=== PATIENT | female | born 1935 | race Caucasian/White ===

== ENCOUNTER 2019-01-17 15:16 | Inpatient (IN) | payer MEDICARE, OTHER ==
[~2019-01-17] VITALS: Ht 157.5 cm; Wt 63.0 kg
[~2019-01-17 15:16] MED LIST: ALEN1TAB3 PO; AMLO-125 PO; ASPI-1441 PO; ASPI-719 PO; ASPI81TA86 PO; ATEN-1 PO; ATEN1TAB38 PO; CALC500T42 PO; CHOL200018 PO; FAM20 PO; FAMO-1 PO; FAMO10TA7 PO; GLUC-120 PO; GLUC-198 PO; HCTZ25 PO; LISI5TAB25 PO; MULT-820 PO; NEB5 PO; PANT40TA65 PO; PNEU0.5D3 IM; SODI15DR18 OP; VIT1CAPS9 PO; [UNRECOGNIZED DRUG - OTHER]; [UNRECOGNIZED DRUG - OTHER]
--- NOTE | 2019-01-17 15:34 | ER Report ---
History and Physical Time Seen By MD: 15:32 Hx. of Stated Complaint: pt reports sob for a few days, "cold last weeK" HPI/ROS CHIEF COMPLAINT: Shortness of breath HISTORY OF PRESENT ILLNESS: 83-year-old female with a history of hypertension, macular degeneration, COPD tending for emphysema without O2 dependency. Patient began with a cold last week. Today she presents with increasing shortness of breath over the last several days. She has a productive cough. She denies fevers. She denies chest pain. She denies leg swelling. She notes mild weakness. She's had no nausea, vomiting. She notes no dysuria. REVIEW OF SYSTEMS: Respiratory: As above Cardiovascular: No chest pain, no palpitations. Gastrointestinal: No vomiting, no abdominal pain. Musculoskeletal: No back pain. Allergies: Coded Allergies: Egg Derived (Verified Allergy, Intermediate, HIVES, 01/30/16) Tetanus Vaccines and Toxoid (Verified Allergy, Intermediate, ANAPHYLAXIS, 01/30/16) Influenza Virus Vaccines (Verified Allergy, Unknown, 01/17/19) Home Meds Active Scripts Amlodipine Besylate (AMLODIPINE BESYLATE) 5 Mg Tablet, 1 TAB PO QDAY, #90 TAB 2 Refills Prov:SAVANNAH GOOD MD 10/10/17 Lisinopril (LISINOPRIL) 5 Mg Tablet, 1 TAB PO QDAY, #90 TAB 3 Refills Prov:SAVANNAH GOOD MD 06/04/17 Pantoprazole Sodium (PANTOPRAZOLE SODIUM) 40 Mg Tablet.dr, 1 TAB PO PRN PRN for heartburn, #90 TAB.SR 4 Refills Prov:SAVANNAH GOOD MD 01/17/17 Atenolol/Chlorthalidone (ATENOLOL-CHLORTHAL 50-25 TB) 1 Each Tablet, 0.5 TAB PO QDAY, #45 TAB 0 Refills Prov:SAVANNAH GOOD MD 11/30/16 Reported Medications Sodium Chloride (CAROLINE-128) 15 Ml Drops, 1 GTT OP BID 01/30/16 Vit C/E/Zn/Coppr/Lutein/Zeaxan (Preservision Areds 2 Softgel) 1 Each Capsule, 2 CAP PO QDAY 01/30/16 Glucosa Stiles 2KCL/Chondroitin Stiles (GLUCOSAMINE & CHONDROITIN CAP) 1 Each Capsule, 1 CAP PO BID 3/28/16 Cholecalciferol (Vitamin D3) (VITAMIN D) 2,000 Unit Tablet, 1 CAP PO QDAY 11/11/14 Discontinued Reported Medications Aspirin (ASPIRIN EC) 81 Mg Tablet.dr, 1 TAB PO QODAY, TAB 11/11/14 Past Medical/Surgical History Past Medical History HEENT: Reports hx of: macular degeneration (bilateral. Has eye exams in [place]. ) Cardiovascular: Reports hx of: hypertension (tx since 2000. ) Respiratory: Reports hx of: COPD (peak flow 220 in 12/19. 300 in 2007. Tends more to emphysema.) Gastrointestinal: Reports hx of: GERD (mild and longstanding. Never needed EGD. ) Musculoskeletal: Reports hx of: osteoporosis (Dx 2007 and tx with fosamax x 3 years. no hx fx. ) Past Surgical History HEENT: Reports hx of: cataract extraction (1999 bil) Gynecologic: Reports hx of: other [employer] surgery (uterine suspension after child ) Integumentary: Reports hx of: skin cancer removal (BCC Dr. Skinner) Reviewed Nurses Notes: Yes Old Medical Records Reviewed: Yes Smoking Status: Former Smoker Exposure to Second Hand Smoke?: Yes Hx Alcohol Use: No Constitutional Vital Sign - Last 24 Hours 01/17/19 01/17/19 01/17/19 01/17/19 15:20 15:21 15:22 15:22 Temp 97.8 Pulse 95 89 Resp 18 B/P (MAP) 174/84 (114) 174/84 Pulse Ox 83 83 O2 Delivery Room Air Room Air O2 Flow Rate 0 2.0 01/17/19 01/17/19 01/17/19 01/17/19 15:26 15:31 15:36 15:41 Pulse 86 83 85 Resp 20 17 19 14 Pulse Ox 95 95 95 85 O2 Delivery Nasal Cannula O2 Flow Rate 2 01/17/19 01/17/19 01/17/19 01/17/19 15:46 15:51 15:56 15:57 Pulse 88 84 78 Resp 20 17 17 Pulse Ox 95 94 99 95 O2 Delivery Nasal Cannula O2 Flow Rate 2.0 01/17/19 01/17/19 01/17/19 01/17/19 15:57 16:01 16:16 16:31 Pulse 77 83 88 Resp 18 13 27 17 Pulse Ox 97 95 95 01/17/19 01/17/19 01/17/19 01/17/19 16:46 17:01 17:16 17:21 Pulse 91 104 89 89 Resp 16 14 19 Pulse Ox 94 93 93 93 01/17/19 01/17/19 01/17/19 01/17/19 17:41 17:45 17:51 18:00 Pulse 90 Resp 20 B/P (MAP) 151/85 (107) 153/79 (103) 149/65 (93) Pulse Ox 90 01/17/19 01/17/19 01/17/19 01/17/19 18:05 18:15 18:20 18:30 Pulse 89 90 Resp 15 22 B/P (MAP) 147/72 (97) 144/87 (106) Pulse Ox 91 90 01/17/19 01/17/19 18:35 18:45 Pulse 125 Resp 23 B/P (MAP) 150/80 (103) Pulse Ox 91 Physical Exam General Appearance: The patient is alert, has no immediate need for airway protection and no current signs of toxicity. Vital signs stable, pulse ox 83% on room air, requiring 2 L to get to normal saturations. She is afebrile HEENT: Pupils equal and round no injection. TMs normal, oropharynx with mild erythema, no exudate Respiratory: Chest is non tender, lungs are clear to auscultation. No wheezing or rails appreciated Cardiac: regular rate and rhythm Gastrointestinal: Abdomen is soft and non tender, no masses, bowel sounds normal. Musculoskeletal: Neck: Neck is supple and non tender. Extremities have full range of motion and are non tender. No edema, no calf tenderness Skin: No rashes or lesions. DIFFERENTIAL DIAGNOSIS: After history and physical exam differential diagnosis was considered for shortness of breath including but not limited to pulmonary infectious process, COPD, asthma, pulmonary embolus and congestive heart failure. Medical Decision Making Data Points Result Diagram: 01/18/19 1209 01/18/19 1209 Laboratory Hematology Test 01/17/19 15:26 01/17/19 15:50 01/17/19 15:53 D-Dimer Quantitative (PE/DVT) 0.64 ug/ml (0-0.50) Total Bilirubin 0.4 mg/dl (0.2-1.3) Aspartate Amino Transf (AST/SGOT) 36 U/L (0-35) Alanine Aminotransferase (ALT/SGPT) 18 U/L (0-56) Alkaline Phosphatase 103 U/L (0-126) Troponin I < 0.012 ng/ml B-Type Natriuretic Peptide 161 pg/ml (0-100) Total Protein 7.4 g/dl (6.3-8.2) Albumin 4.5 g/dl (3.5-5.0) Influenza Virus Type A (PCR) Negative (NEGATIVE) Influenza Virus Type B (PCR) Negative (NEGATIVE) Lactate 1.2 mmol/L (0.7-2.1) Chemistry Test 01/17/19 15:26 01/17/19 15:50 01/17/19 15:53 D-Dimer Quantitative (PE/DVT) 0.64 ug/ml (0-0.50) Total Bilirubin 0.4 mg/dl (0.2-1.3) Aspartate Amino Transf (AST/SGOT) 36 U/L (0-35) Alanine Aminotransferase (ALT/SGPT) 18 U/L (0-56) Alkaline Phosphatase 103 U/L (0-126) Troponin I < 0.012 ng/ml B-Type Natriuretic Peptide 161 pg/ml (0-100) Total Protein 7.4 g/dl (6.3-8.2) Albumin 4.5 g/dl (3.5-5.0) Influenza Virus Type A (PCR) Negative (NEGATIVE) Influenza Virus Type B (PCR) Negative (NEGATIVE) Lactate 1.2 mmol/L (0.7-2.1) Coagulation Test 01/17/19 15:26 D-Dimer Quantitative (PE/DVT) 0.64 ug/ml Microbiology Microbiology Date/Time Source Procedure Growth Status 01/17/19 15:59 Blood Peripheral Draw Blood Culture - Preliminary NO GROWTH AFTER 1 DAY, REINCUBATED Resulted 01/17/19 15:33 Blood Peripheral Draw Blood Culture - Preliminary NO GROWTH AFTER 1 DAY, REINCUBATED Resulted EKG/Imaging EKG Interpretation 12 lead EK Rhythm: normal sinus rhythm with occasional premature supraventricular complex [place]: normal QRS: normal ST segments: normal, no evidence of ischemia or dysrhythmia, comparison to previous EKG dated 01/30/16. There does not seem to be significant change in the overall morphology. There is a lot of baseline artifact in the new EKG Imaging Results: CT scan of the CTA pulmonary angiogram was obtained. The results of the study are CT ANGIOGRAM OF THE CHEST WITH INTRAVENOUS CONTRAST, PE PROTOCOL DATE OF EXAM: 01/17/2019 16:40 COMPARISON: Chest radiographs of the same day. INDICATION: Hypoxia. TECHNIQUE: Contrast enhanced chest CT performed during the injection of 80 ml of Isovue-370. Three-dimensional (MIP) reconstructions were performed. FINDINGS: Negative for pulmonary arterial embolus. Thyroid: Incompletely imaged thyroid. Thoracic inlet: No thoracic inlet adenopathy. Heart and great vessels: Heart size is normal. Coronary atherosclerosis is prominent. The left and right main pulmonary arteries are mildly enlarged. Mediastinum and pinky: No long adenopathy. Lungs and pleura: Centrilobular emphysema is moderate at the lung apices. There is also apical scarring. 6 mm nodule posteriorly in the right lower lobe on series 5 image 149. 9 mm nodule posteriorly in the right lower lobe on series 5 image 165. Scattered atelectasis at the lung bases. Mild diffuse bronchial wall thickening most prominent at the lung bases. There is some nodular thickening along the fissure on the left. Breast and axilla: Breast tissue is unremarkable by CT. Bones and soft tissues: No acute osseous abnormality. Upper abdomen: Partially calcified stones layer dependently within the gallbladder. There is an indeterminate nodule at the left adrenal gland either measuring 0.7 or 1.6 cm; 0.7 cm corresponds to a solid nodular component that may or may not be part of a larger fat-containing nodule. There is a large hiatal hernia. IMPRESSION: 1. Negative for pulmonary arterial embolus. 2. 9 mm and 6 mm pulmonary nodules posteriorly in the right lower lobe. There is also nodularity along the left major fissure. Recommend follow-up CT in 3 months. 3. Indeterminate nodule at the left adrenal gland. Consider adrenal mass protocol CT to determine washout characteristics. 4. Moderate apical predominant centrilobular emphysema. 5. Large hiatal hernia. 6. Cholelithiasis. The study was read by the radiologist. I viewed the images myself on the PACS system. ED Course/Re-evaluation Clinical Indication for ER IV: Hydration, IV Access ED Course 01/17/2019 6:19:17 pm is discussed with Dr. Boyd hospitalist on-call, who accepts the patient for admission for treatment of COPD exacerbation. Decision to Disposition Date: Jan 17, 2019 Decision to Disposition Time: 18:02 Depart Departure Latest Vital Signs Vital Signs Date Time Temp Pulse Resp B/P (MAP) Pulse Ox O2 Delivery O2 Flow Rate FiO2 01/17/19 18:45 150/80 (103) 01/17/19 18:35 125 23 91 01/17/19 15:57 Nasal Cannula 2.0 01/17/19 15:22 97.8 Impression: Primary Impression: Hypoxia Additional Impressions: Upper respiratory infection COPD exacerbation Hypertension GERD (gastroesophageal reflux disease) Condition: Improved Disposition: HOME OR SELF-CARE Referrals: SAVANNAH GOOD MD (PCP) Problem Qualifiers Additional Impressions: Upper respiratory infection URI type: unspecified URI Qualified Codes: J06.9 - Acute upper respiratory infection, unspecified Hypertension Hypertension type: essential hypertension Qualified Codes: I10 - Essential (primary) hypertension GERD (gastroesophageal reflux disease) Esophagitis presence: esophagitis presence not specified Qualified Codes: K21.9 - Gastro-esophageal reflux disease without esophagitis GONZALES ZAVALA DO Jan 17, 2019 15:34
[2019-01-17] MEDS ORDERED: ALBUTEROL/IPRATROPIUM 3 ML NEB NEB ONE (15:40)
[2019-01-17] MEDS ORDERED: methylPREDNIS SUCC 125 MG/2ML IVP ONE (15:40)
[2019-01-17] MEDS ORDERED: NS(*) 0.9% 1000 ML BAG 1,000 ML IV ONE (15:40)
[2019-01-17 15:58] LABS: PLATELET COUNT, AUTOMATED 552 K/uL (150-450)
[2019-01-17] MEDS ORDERED: NS(*) 0.9% 50 ML BAG 50 ML ONE (16:54)
[2019-01-17] MEDS ORDERED: IOPAMIDOL 76% 100 ML INFUS BTL 100 ML ONE (16:54)
--- NOTE | 2019-01-17 17:22 | EKG ---
FAC[place] [facility] [place]IENT NAME: AURORA MORGAN : [id number] MR: [id number] V: [id number] EXAM DATE: ORDERING PHYSICIAN: GONZALES ZAVALA TECHNOLOGIST: DANIELA Test Reason : SOB Blood Pressure : / mmHG Vent. Rate : 085 BPM Atrial Rate : 085 BPM P-R Int : 158 ms QRS Dur : 080 ms QT Int : 378 ms P-R-T Axes : 072 084 091 degrees QTc Int : 449 ms Sinus rhythm with premature supraventricular complexes Nonspecific ST and T wave abnormality Abnormal ECG When compared with ECG of 30-JAN-2016 12:40, premature supraventricular complexes are now present ST now depressed in Anterior leads Confirmed by CORINA MACIAS ([id number]) on 01/17/2019 6:15:28 PM Referred By: KIERRA Confirmed By:CORINA MACIAS
--- NOTE | 2019-01-17 17:46 | RADIOLOGY IMAGING REPORT ---
FACILITY: [facility] PATIENT NAME: Arline Ramirez : 1935 MR: [id number] V: [id number] EXAM DATE: ORDERING PHYSICIAN: GONZALES ZAVALA TECHNOLOGIST: Location: [facility] - [place] Patient: Arline Ramirez : 1935 Visit/Account:[id number] Date of Sevice: 01/17/2019 CT ANGIOGRAM OF THE CHEST WITH INTRAVENOUS CONTRAST, PE PROTOCOL DATE OF EXAM: 01/17/2019 16:40 COMPARISON: Chest radiographs of the same day. INDICATION: Hypoxia. TECHNIQUE: Contrast enhanced chest CT performed during the injection of 80 ml of Isovue-370. Three-d imensional (MIP) reconstructions were performed. FINDINGS: Negative for pulmonary arterial embolus. Thyroid: Incompletely imaged thyroid. Thoracic inlet: No thoracic inlet adenopathy. Heart and great vessels: Heart size is normal. Coronary atherosclerosis is prominent. The left and r ight main pulmonary arteries are mildly enlarged. Mediastinum and pinky: No long adenopathy. Lungs and pleura: Centrilobular emphysema is moderate at the lung apices. There is also apical scarr ing. 6 mm nodule posteriorly in the right lower lobe on series 5 image 149. 9 mm nodule posteriorly i n the right lower lobe on series 5 image 165. Scattered atelectasis at the lung bases. Mild diffuse b ronchial wall thickening most prominent at the lung bases. There is some nodular thickening along the fissure on the left. Breast and axilla: Breast tissue is unremarkable by CT. Bones and soft tissues: No acute osseous abnormality. Upper abdomen: Partially calcified stones layer dependently within the gallbladder. There is an indet erminate nodule at the left adrenal gland either measuring 0.7 or 1.6 cm; 0.7 cm corresponds to a devin id nodular component that may or may not be part of a larger fat-containing nodule. There is a large hiatal hernia. IMPRESSION: 1. Negative for pulmonary arterial embolus. 2. 9 mm and 6 mm pulmonary nodules posteriorly in the right lower lobe. There is also nodularity ewa g the left major fissure. Recommend follow-up CT in 3 months. 3. Indeterminate nodule at the left adrenal gland. Consider adrenal mass protocol CT to determine was hout characteristics. 4. Moderate apical predominant centrilobular emphysema. 5. Large hiatal hernia. 6. Cholelithiasis. One of the following dose optimization techniques was utilized in the performance of this exam: Autom ated exposure control; adjustment of the mA and/or kV according to the patient's size; or use of an i terative reconstruction technique. Specific details can be referenced in the facility's radiology C T exam operational policy. Report Dictated By: Efrain Staples MD at 01/17/2019 5:19 PM Report E-Signed By: Efrain Staples MD at 01/17/2019 5:43 PM WSN:[id number]
[2019-01-17] MEDS ORDERED: ALBUTEROL 2.5 MG/3 ML NEB NEB PRN (19:55)
[2019-01-17 19:56] VITALS: BP 147/72
--- NOTE | 2019-01-17 20:01 | History & Physical ---
History of Present Illness Chief Complaint Shortness of breath History of Present Illness This patient presented to the emergency room with a complaint of shortness of breath. Her symptoms started approximately one week ago when she developed an upper respiratory infection. She has no history of lung problems in the past, but did smoke for a number of years before quitting. History Problems: (1) Essential hypertension Status: Acute Home Meds Active Scripts Amlodipine Besylate (AMLODIPINE BESYLATE) 5 Mg Tablet, 1 TAB PO QDAY, #90 TAB 2 Refills Prov:SAVANNAH GOOD MD 10/10/17 Lisinopril (LISINOPRIL) 5 Mg Tablet, 1 TAB PO QDAY, #90 TAB 3 Refills Prov:SAVANNAH GOOD MD 06/04/17 Pantoprazole Sodium (PANTOPRAZOLE SODIUM) 40 Mg Tablet., 1 TAB PO PRN PRN for heartburn, #90 TAB.SR 4 Refills Prov:SAVANNAH GOOD MD 01/17/17 Atenolol/Chlorthalidone (ATENOLOL-CHLORTHAL 50-25 TB) 1 Each Tablet, 0.5 TAB PO QDAY, #45 TAB 0 Refills Prov:SAVANNAH GOOD MD 11/30/16 Reported Medications Sodium Chloride (CAROLINE-128) 15 Ml Drops, 1 GTT OP BID 01/30/16 Vit C/E/Zn/Coppr/Lutein/Zeaxan (Preservision Areds 2 Softgel) 1 Each Capsule, 2 CAP PO QDAY 01/30/16 Glucosa Stiles 2KCL/Chondroitin Stiles (GLUCOSAMINE & CHONDROITIN CAP) 1 Each Capsule, 1 CAP PO BID 01/30/16 Aspirin (ASPIRIN EC) 81 Mg Tablet., 1 TAB PO QODAY, TAB 11/11/14 Cholecalciferol (Vitamin D3) (VITAMIN D) 2,000 Unit Tablet, 1 CAP PO QDAY 11/11/14 Allergies: Coded Allergies: Egg Derived (Verified Allergy, Intermediate, HIVES, 01/30/16) Tetanus Vaccines and Toxoid (Verified Allergy, Intermediate, ANAPHYLAXIS, 01/30/16) Influenza Virus Vaccines (Verified Allergy, Unknown, 01/17/19) Patient History: FH: CHF (congestive heart failure) MOTHER, , Age:84 FH: breast cancer Paternal aunt, , Age:88, Onset:48 FH: dementia FATHER, , Age:88 FH: hypertension MOTHER, , Age:84 FH: rheumatic fever MOTHER, , Age:84 Smoking Status: Former Smoker Exposure to Second Hand Smoke?: Yes Hx Alcohol Use: No Review of Systems All Systems Reviewed/Normal: Yes, Except as Noted Respiratory: Shortness of Breath Exam Vital Signs Vital Signs Date Time Temp Pulse Resp B/P (MAP) Pulse Ox O2 Delivery O2 Flow Rate FiO2 01/17/19 19:25 132 15 90 01/17/19 19:15 116/89 (98) 01/17/19 15:57 Nasal Cannula 2.0 01/17/19 15:22 97.8 Neuro: No Gross deficits Eyes: PERRLA Cardiovascular: Regular Rate and Rhythm Respiratory: Clear to Auscultation GI: Abd Soft and Non-Tender Extremities: No Edema Integumentary: No Cyanosis Medical Decision Making Data Points Result Diagram: 01/17/19 1526 01/17/19 1526 Assessment and Plan Problems: (1) COPD exacerbation Status: Acute Assessment & Plan: She did present with shortness of breath and hypoxia. Her CT scan did show findings consistent with emphysema. She has been started on nebulizers, doxycycline, and steroids. (2) Pulmonary nodules Assessment & Plan: These were noted on the CT scan. A follow up CT is recommended in 3 months. (3) Adrenal nodule Assessment & Plan: This was also noted on the CT scan and a dedicated adrenal CT was recommended. (4) Essential hypertension Status: Acute Assessment & Plan: She is on chronic treatment with amlodipine, atenolol, chlorthalidone, and lisinopril. Copies to: CATARINO ROSADO DO ; Venous Thromboembolism Antithrombotics Is Pt On Any Antithrombotics?: No Exam Sepsis Risk: No Definite Risk CORINA MACIAS DO Jan 17, 2019 20:01
[2019-01-17] MEDS ORDERED: LEVALBUTEROL 1.25 MG/3 ML NEB NEB PRN (20:25)
[2019-01-17] MEDS: LEVALBUTEROL 1.25 MG/3 ML NEB NEB SCH (23:49)
[2019-01-18] MEDS ORDERED: ALBUTEROL 2.5 MG/3 ML NEB NEB SCH
[2019-01-18] MEDS: methylPREDNIS SUCC 125 MG/2ML IVP SCH ×2 (00:18→09:00)
[2019-01-18 01:26] VITALS: BP 126/61
[2019-01-18] MEDS: LEVALBUTEROL 1.25 MG/3 ML NEB NEB SCH ×3 (05:59→17:18)
[2019-01-18 06:41] VITALS: BP 124/58
[2019-01-18] MEDS: CHLORTHALIDONE 25 MG TAB PO SCH (08:44)
[2019-01-18] MEDS: LISINOPRIL 5 MG TAB PO SCH (08:44)
[2019-01-18] MEDS: amLODIPine BESYL(*) 5 MG TAB PO SCH (08:44)
[2019-01-18] MEDS: ATENOLOL 25 MG TAB PO SCH (08:44)
[2019-01-18] MEDS: PANTOPRAZOLE SOD 40 MG TABEC PO PRN (08:48)
[2019-01-18] MEDS: CALCIUM CARBONATE 500 MG CHEW PO PRN ×3 (11:22→20:53)
[2019-01-18] MEDS: predniSONE 20 MG TAB PO SCH (11:23)
[2019-01-18 12:22] LABS: PLATELET COUNT, AUTOMATED 584 K/uL (150-450)
[2019-01-18] MEDS: EUCALYPTUS/MENTHOL LOZ MM PRN ×2 (14:14→17:56)
[2019-01-18 14:15] VITALS: BP 123/56
[2019-01-18 15:29] VITALS: BP 119/68
--- NOTE | 2019-01-18 15:59 | Hospitalist Progress Note ---
Subjective Progress Notes Subjective 83F admitted for COPD exacerbation. WBC elevated > 20kthis am unclear if only due to steroid. Tachycardic for periods without symptoms to 130's. Plan to monitor overnight and attempt to wean O2. Patient Complains of: Respiratory: Cough; No: Shortness of Breath Physical Exam Vital Signs Date Time Temp Pulse Resp B/P (MAP) Pulse Ox O2 Delivery O2 Flow Rate FiO2 01/18/19 15:29 99.1 80 16 119/68 (85) 89 Nasal Cannula 0.5 Intake and Output 01/18/19 06:59 Intake Total 1240 ml Balance 1240 ml Intake Oral 240 ml IV Total 1000 ml # Voids 4 General Appearance: Alert, Awake, No Acute Distress Neuro: No Gross deficits Eyes: PERRLA Cardiovascular: Normal Rhythm & Peripheral Pulses Respiratory: No Respiratory Distress (end expiratroy wheeze) GI: Soft and Non-Tender Musculoskeletal: No Weakness/Pain Extremities: Soft and Non Tender, Warm, Pulses, Perfused; No Edema Result Diagram: 01/18/19 1209 01/18/19 1209 Assessment and Plan Problems: (1) COPD exacerbation Status: Acute Assessment & Plan: She did present with shortness of breath and hypoxia. Her CT scan did show findings consistent with emphysema. She has been started on nebulizers, doxycycline, and steroids. O2 needs improving. (2) Pulmonary nodules Assessment & Plan: These were noted on the CT scan. A follow up CT is r ecommended in 3 months. (3) Adrenal nodule Assessment & Plan: This was also noted on the CT scan and a dedicated adrenal CT was recommended. (4) Essential hypertension Status: Acute Assessment & Plan: She is on chronic treatment with amlodipine, atenolol, chlorthalidone, and lisinopril. (5) Tachycardia Assessment & Plan: Believe related to albuterol, placed on telemetry for further evaluation as episodes were over before EKG obtained. (6) Leukocytosis Assessment & Plan: Likely due to steroid though level of elevation is slightly atypical. Had slight elevation in WBC before any steroid therapy. Exam Sepsis Risk: Sepsis Risk LEE ANN BESTSHANE Jan 18, 2019 15:59
[2019-01-18 19:28] VITALS: BP 120/55
[2019-01-18 23:56] VITALS: BP 109/53
[2019-01-19 03:09] VITALS: BP 117/62
[2019-01-19] MEDS: LEVALBUTEROL 1.25 MG/3 ML NEB NEB SCH ×2 (06:00)
[2019-01-19 06:14] LABS: PLATELET COUNT, AUTOMATED 529 K/uL (150-450)
[2019-01-19 07:38] VITALS: BP 130/74
[2019-01-19] MEDS: LISINOPRIL 5 MG TAB PO SCH (09:00)
[2019-01-19] MEDS: predniSONE 20 MG TAB PO SCH (09:00)
[2019-01-19] MEDS ORDERED: ASPIRIN 81 MG ENTERIC COATED PO SCH (09:00)
[2019-01-19] MEDS: ATENOLOL 25 MG TAB PO SCH (09:00)
[2019-01-19] MEDS: amLODIPine BESYL(*) 5 MG TAB PO SCH (09:00)
[2019-01-19] MEDS: CHLORTHALIDONE 25 MG TAB PO SCH (09:01)
[2019-01-19] MEDS: PANTOPRAZOLE SOD 40 MG TABEC PO PRN (09:01)
[2019-01-19] MEDS ORDERED: PRED20TA6 PO (09:12)
--- NOTE | 2019-01-19 09:18 | Hospitalist Depart ---
Discharge Summary Reason for Hosp/Final Diag: (1) COPD exacerbation Status: Acute Hospital Course & Plan: She did present with shortness of breath and hypoxia. Her CT scan did show findings consistent with emphysema. Shewas started on nebulizers, and steroid. Discharged on 1L O2 and with prednisone for 7 days. (2) Pulmonary nodules Hospital Course & Plan: These were noted on the CT scan. A follow up CT is recommended in 3 months. (3) Adrenal nodule Hospital Course & Plan: This was also noted on the CT scan and a dedicated adrenal CT was recommended. (4) Essential hypertension Status: Acute Hospital Course & Plan: She is on chronic treatment with amlodipine, atenolol, chlorthalidone, and lisinopril. (5) Tachycardia Hospital Course & Plan: Believe related to albuterol. (6) Leukocytosis Hospital Course & Plan: Likely due to steroid though level of elevation is slig htly atypical. Had slight elevation in WBC before any steroid therapy. Recommend follow up after resolution of acute phase of illness and after completing steroid. Departure Weight (Pounds): 139 Weight (Ounces): 1.0 Result Diagram: 01/19/19 0551 01/19/19550 Condition: Improved Discharge: Home Discharge Instructions Home Meds Active Scripts Prednisone (PREDNISONE) 20 Mg Tablet, 40 MG PO QDAY for 7 Days, #14 TAB Prov:LEE ANN BESTSHANE 01/19/19 Amlodipine Besylate (AMLODIPINE BESYLATE) 5 Mg Tablet, 1 TAB PO QDAY, #90 TAB 2 Refills Prov:SAVANNAH GOOD MD 10/10/17 Lisinopril (LISINOPRIL) 5 Mg Tablet, 1 TAB PO QDAY, #90 TAB 3 Refills Prov:SAVANNAH GOOD MD 06/04/17 Pantoprazole Sodium (PANTOPRAZOLE SODIUM) 40 Mg Tablet.dr, 1 TAB PO PRN PRN for heartburn, #90 TAB.SR 4 Refills Prov:SAVANNAH GOOD MD 01/17/17 Atenolol/Chlorthalidone (ATENOLOL-CHLORTHAL 50-25 TB) 1 Each Tablet, 0.5 TAB PO QDAY, #45 TAB 0 Refills Prov:SAVANNAH GOOD MD 11/30/16 Reported Medications Sodium Chloride (CAROLINE-128) 15 Ml Drops, 1 GTT OP BID 01/30/16 Vit C/E/Zn/Coppr/Lutein/Zeaxan (Preservision Areds 2 Softgel) 1 Each Capsule, 2 CAP PO QDAY 01/30/16 Glucosa Stiles 2KCL/Chondroitin Stiles (GLUCOSAMINE & CHONDROITIN CAP) 1 Each Capsule, 1 CAP PO BID 01/30/16 Cholecalciferol (Vitamin D3) (VITAMIN D) 2,000 Unit Tablet, 1 CAP PO QDAY 11/11/14 Discontinued Reported Medications Aspirin (ASPIRIN EC) 81 Mg Tablet.dr, 1 TAB PO QODAY, TAB 11/11/14 Diet: Regular Activity: As Tolerated Special Instructions: You were given a 7 day course of prednisone for COPD exacerbation. You were started on oxygen, follow up with PCP to evaluate continued need. Imaging findings showed pulmonary nodule which will need follow up and adrenal lesion shich will also need dedicated imaging. Copies to: SAVANNAH GOOD MD ; Venous Thromboembolism Antithrombotics Is Pt On Any Antithrombotics?: No SHANE ALVAREZ DO Jan 19, 2019 09:18
== END 2019-01-19 11:06 | disposition home or self-care (01) | DRG 192 ==
LOC: ER 15:38 → MED 18:47
PROVIDERS: ADMIT Family Medicine; ATTEND Family Medicine
DX: J44.1 Chronic obstructive pulmonary disease with (acute) exacerbation (principal); I10 Essential (primary) hypertension; K21.9 Gastro-esophageal reflux disease without esophagitis; M81.0 Age-related osteoporosis without current pathological fracture; R91.8 Other nonspecific abnormal finding of lung field; R00.0 Tachycardia, unspecified; D72.829 Elevated white blood cell count, unspecified; J06.9 Acute upper respiratory infection, unspecified; R09.02 Hypoxemia; T38.0X5A Adverse effect of glucocorticoids and synthetic analogues, initial encounter; E27.9 Disorder of adrenal gland, unspecified; H35.30 Unspecified macular degeneration; Z88.7 Allergy status to serum and vaccine; Z91.012 Allergy to eggs; Z87.891 Personal history of nicotine dependence
CPT/HCPCS: 36415; 71275; 81001; 82040; 82247; 82310; 82374; 82435; 82565; 82947; 83605; 83880; 84075; 84132; 84155; 84295; 84450; 84460; 84484; 84520; 85025; 85379; 87040; 87502; 93005; 94640; 96361; 96374; 99284; J2930; J7030; J7050; J7512; Q9967

== ENCOUNTER 2019-01-21 06:44 | Emergency (ER) | payer MEDICARE, OTHER ==
[~2019-01-21 06:44] MED LIST changes: -DILT120C12 PO; -METO25TA23 PO; -RIV10 PO
[2019-01-21] MEDS ORDERED: NITROGLYCERIN 0.4 MG SUBL SL ONE (07:05)
[2019-01-21 07:14] LABS: PLATELET COUNT, AUTOMATED 660 K/uL (150-450)
--- NOTE | 2019-01-21 07:26 | ER Report ---
History and Physical Time Seen By MD: 07:00 Hx. of Stated Complaint: PATIENT REPORTS CHEST PRESSURE THAT STARTED THIS MORNING. ALSO HAS PAIN IN LEFT GROIN. ASA GIVEN HPI/ROS CHIEF COMPLAINT: Chest pressure HISTORY OF PRESENT ILLNESS: Patient is an 83-year-old female significant past medical history of hypertension. Patient presents to the emergency department this morning with a complaint of chest pressure. Patient states that this pressure began when she awoke this morning about an hour and a half to 2 hours prior to presentation. Patient describes pain as a pressure central parasternal nonradiating no loosening or alleviating factors no associated symptoms. Patient states that she had a stress test done well over 10 years ago. Patient denies any additional complaints at this time.` Patient was discharged 2 days prior to presentation for an upper respiratory infection. REVIEW OF SYSTEMS: Respiratory: No cough, no dyspnea. Cardiovascular: Chest pressure no palpitation Gastrointestinal: No vomiting, no abdominal pain. Musculoskeletal: No back pain. Remainder of the 14 system rev: Yes Allergies: Coded Allergies: Egg Derived (Verified Allergy, Intermediate, HIVES, 01/30/16) Tetanus Vaccines and Toxoid (Verified Allergy, Intermediate, ANAPHYLAXIS, 01/30/16) Influenza Virus Vaccines (Verified Allergy, Unknown, 01/17/19) Home Meds Active Scripts Prednisone (PREDNISONE) 20 Mg Tablet, 40 MG PO QDAY for 7 Days, #14 TAB Prov:SHANE ALVAREZ DO 01/19/19 Amlodipine Besylate (AMLODIPINE BESYLATE) 5 Mg Tablet, 1 TAB PO QDAY, #90 TAB 2 Refills Prov:SAVANNAH GOOD MD 10/10/17 Lisinopril (LISINOPRIL) 5 Mg Tablet, 1 TAB PO QDAY, #90 TAB 3 Refills Prov:SAVANNAH GOOD MD 06/04/17 Pantoprazole Sodium (PANTOPRAZOLE SODIUM) 40 Mg Tablet.dr, 1 TAB PO PRN PRN for heartburn, #90 TAB.SR 4 Refills Prov:SAVANNAH GOOD MD 01/17/17 Atenolol/Chlorthalidone (ATENOLOL-CHLORTHAL 50-25 TB) 1 Each Tablet, 0.5 TAB PO QDAY, #45 TAB 0 Refills Prov:SAVANNAH GOOD MD 11/30/16 Reported Medications Sodium Chloride (CAROLINE-128) 15 Ml Drops, 1 GTT OP BID 01/30/16 Vit C/E/Zn/Coppr/Lutein/Zeaxan (Preservision Areds 2 Softgel) 1 Each Capsule, 2 CAP PO QDAY 01/30/16 Glucosa Stiles 2KCL/Chondroitin Stiles (GLUCOSAMINE & CHONDROITIN CAP) 1 Each Capsule, 1 CAP PO BID 01/30/16 Cholecalciferol (Vitamin D3) (VITAMIN D) 2,000 Unit Tablet, 1 CAP PO QDAY 11/11/14 Discontinued Reported Medications Aspirin (ASPIRIN EC) 81 Mg Tablet., 1 TAB PO QODAY, TAB 11/11/14 Reviewed Nurses Notes: Yes Old Medical Records Reviewed: Yes Hx Smoking: Yes (LONG TIME [id number] 10-12 YEARS AGO) Smoking Status: Former Smoker Exposure to Second Hand Smoke?: Yes Hx Substance Use Disorder: No Hx Alcohol Use: No Constitutional Vital Sign - Last 24 Hours 01/21/19 01/21/19 01/21/19 01/21/19 06:48 06:51 06:56 07:00 Temp 97.6 Pulse 72 68 72 Resp 70 16 18 16 B/P (MAP) 139/131 (134) 154/86 (108) 133/74 (93) Pulse Ox 94 94 94 O2 Delivery Nasal Cannula Nasal Cannula Nasal Cannula Nasal Cannula O2 Flow Rate 2 2 2 01/21/19 01/21/19 01/21/19 01/21/19 07:04 07:08 07:09 07:20 Pulse 69 69 Resp 16 16 B/P (MAP) 139/80 (99) 127/70 (89) Pulse Ox 94 94 O2 Delivery Nasal Cannula O2 Flow Rate 2 2.0 01/21/19 01/21/19 01/21/19 01/21/19 07:29 07:30 07:45 07:49 Pulse 70 64 Resp 21 15 B/P (MAP) 125/71 (89) 136/75 (95) Pulse Ox 95 97 01/21/19 01/21/19 01/21/19 01/21/19 08:00 08:17 08:22 08:30 Pulse ??? 65 B/P (MAP) 126/80 (95) 137/73 (94) 01/21/19 01/21/19 01/21/19 01/21/19 08:42 08:45 09:00 09:02 Pulse 60 61 Resp 14 14 B/P (MAP) 128/89 (102) 129/65 (86) Pulse Ox 96 94 01/21/19 01/21/19 09:15 09:22 Pulse 60 Resp 13 B/P (MAP) 139/70 (93) Pulse Ox 95 Physical Exam General Appearance: The patient is alert, has no immediate need for airway protection and no current signs of toxicity. [ ] Eyes: Pupils equal and round no injection. Respiratory: Chest is non tender, lungs are clear to auscultation. Cardiac: regular rate and rhythm [ ] Gastrointestinal: Abdomen is soft and non tender, no masses, bowel sounds normal. Musculoskeletal: Neck: Neck is supple and non tender. Extremities have full range of motion and are non tender. Skin: No rashes or lesions. [ ] DIFFERENTIAL DIAGNOSIS: After history and physical exam differential diagnosis was considered for Rohan infarction unstable angina pulmonary embolus aortic dissection infection Medical Decision Making Data Points Result Diagram: 01/21/19 0642 01/21/19 0642 Laboratory Hematology Test 01/21/19 06:42 01/21/19 07:31 01/21/19 09:11 Red Blood Count 4.83 M/uL (4.17-5.56) Mean Corpuscular Volume 91.2 fL (80.0-96.0) Mean Corpuscular Hemoglobin 30.9 pg (26.0-33.0) Mean Corpuscular Hemoglobin Concent 33.8 g/dL (32.0-36.0) Red Cell Distribution Width 14.5 % (11.5-14.5) Mean Platelet Volume 8.0 fL (7.2-11.1) Neutrophils (%) (Auto) 80.6 % (39.4-72.5) Lymphocytes (%) (Auto) 9.4 % (17.6-49.6) Monocytes (%) (Auto) 8.4 % (4.1-12.4) Eosinophils (%) (Auto) 1.0 % (0.4-6.7) Basophils (%) (Auto) 0.6 % (0.3-1.4) Nucleated RBC Relative Count (auto) 0.1 /100WBC Neutrophils # (Auto) 14.3 K/uL (2.0-7.4) Lymphocytes # (Auto) 1.7 K/uL (1.3-3.6) Monocytes # (Auto) 1.5 K/uL (0.3-1.0) Eosinophils # (Auto) 0.2 K/uL (0.0-0.5) Basophils # (Auto) 0.1 K/uL (0.0-0.1) Nucleated RBC Absolute Count (auto) 0.02 K/uL Peripheral Blood Smear Yes Y/N Sodium Level 127 mmol/L (137-145) Potassium Level 3.6 mmol/L (3.5-5.0) Chloride Level 93 mmol/L (98-107) Carbon Dioxide Level 31 mmol/L (22-31) Blood Urea Nitrogen 23 mg/dl (7-18) Creatinine 0.90 mg/dl (0.52-1.04) Glomerular Filtration Rate Calc 59.7 Random Glucose 101 mg/dl (75-110) Calcium Level 9.5 mg/dl (8.4-10.2) Total Bilirubin 0.3 mg/dl (0.2-1.3) Aspartate Amino Transf (AST/SGOT) 40 U/L (0-35) Alanine Aminotransferase (ALT/SGPT) 23 U/L (0-56) Alkaline Phosphatase 86 U/L (0-126) Total Protein 6.6 g/dl (6.3-8.2) Albumin 3.9 g/dl (3.5-5.0) D-Dimer Quantitative (PE/DVT) 0.72 ug/ml (0-0.50) Troponin I 0.013 ng/ml Chemistry Test 01/21/19 06:42 01/21/19 07:31 01/21/19 09:11 White Blood Count 17.8 k/uL (4.5-11.0) Red Blood Count 4.83 M/uL (4.17-5.56) Hemoglobin 14.9 g/dL (12.0-16.0) Hematocrit 44.0 % (34.0-47.0) Mean Corpuscular Volume 91.2 fL (80.0-96.0) Mean Corpuscular Hemoglobin 30.9 pg (26.0-33.0) Mean Corpuscular Hemoglobin Concent 33.8 g/dL (32.0-36.0) Red Cell Distribution Width 14.5 % (11.5-14.5) Platelet Count 660 K/uL (150-450) Mean Platelet Volume 8.0 fL (7.2-11.1) Neutrophils (%) (Auto) 80.6 % (39.4-72.5) Lymphocytes (%) (Auto) 9.4 % (17.6-49.6) Monocytes (%) (Auto) 8.4 % (4.1-12.4) Eosinophils (%) (Auto) 1.0 % (0.4-6.7) Basophils (%) (Auto) 0.6 % (0.3-1.4) Nucleated RBC Relative Count (auto) 0.1 /100WBC Neutrophils # (Auto) 14.3 K/uL (2.0-7.4) Lymphocytes # (Auto) 1.7 K/uL (1.3-3.6) Monocytes # (Auto) 1.5 K/uL (0.3-1.0) Eosinophils # (Auto) 0.2 K/uL (0.0-0.5) Basophils # (Auto) 0.1 K/uL (0.0-0.1) Nucleated RBC Absolute Count (auto) 0.02 K/uL Peripheral Blood Smear Yes Y/N Glomerular Filtration Rate Calc 59.7 Calcium Level 9.5 mg/dl (8.4-10.2) Total Bilirubin 0.3 mg/dl (0.2-1.3) Aspartate Amino Transf (AST/SGOT) 40 U/L (0-35) Alanine Aminotransferase (ALT/SGPT) 23 U/L (0-56) Alkaline Phosphatase 86 U/L (0-126) Total Protein 6.6 g/dl (6.3-8.2) Albumin 3.9 g/dl (3.5-5.0) D-Dimer Quantitative (PE/DVT) 0.72 ug/ml (0-0.50) Troponin I 0.013 ng/ml Coagulation Test 01/21/19 07:31 D-Dimer Quantitative (PE/DVT) 0.72 ug/ml ED Course/Re-evaluation ED Course 83-year-old female comes in the emergency department today history of hypertension with a sensation of some heaviness on her chest EKGs show no ST elevations or unremarkable repeat troponin series was also negative for acute ischemia to a slight bump in her d-dimer she was recently hospitalized for upper respiratory infection still carrying a white count of 17.4 however her chest x- ray and CT angiogram shows no focal consolidation no signs of pulmonary emboli [place] as scan did show pulmonary nodules 7 mm the right lower lobe new compared to 2008 9 mm lobe stable since 2008 6-12 month follow-up interval recommendation is being made patient is currently pain-free at time of discharge nitroglycerin was given head no impact this is most likely indigestion versus musculoskeletal highly unlikely this being cardiac. We'll recommend outpatient cardiac stress test and primary care follow-up return if symptoms worsen Decision to Disposition Date: Jan 21, 2019 Decision to Disposition Time: 09:50 Depart Departure Latest Vital Signs Vital Signs Date Time Temp Pulse Resp B/P (MAP) Pulse Ox O2 Delivery O2 Flow Rate FiO2 01/21/19 09:22 60 13 95 01/21/19 09:15 139/70 (93) 01/21/19 07:08 2.0 01/21/19 07:04 Nasal Cannula 01/21/19 06:48 97.6 Impression: Primary Impression: Chest pain Condition: Condition Unchanged Disposition: HOME OR SELF-CARE Referrals: SAVANNAH GOOD MD (PCP) 5 Days Patient Instructions: Chest Pain (DC) NESTOR AGARWAL MD Jan 21, 2019 07:26
--- NOTE | 2019-01-21 07:44 | EKG ---
FACILITY: [facility] - [place] PATIENT NAME: AURORA MORGAN : [id number] MR: [id number] V: [id number] EXAM DATE: ORDERING PHYSICIAN: NESTOR AGARWAL TECHNOLOGIST: JANET Gibbons Reason : CARDIAC Blood Pressure : / mmHG Vent. Rate : 065 BPM Atrial Rate : 065 BPM P-R Int : 158 ms QRS Dur : 080 ms QT Int : 398 ms P-R-T Axes : 085 079 073 degrees QTc Int : 413 ms Normal sinus rhythm Normal ECG When compared with ECG of 17-JAN-2019 15:30, premature supraventricular complexes are no longer present Confirmed by CORINA MACIAS ([id number]) on 01/21/2019 1:42:30 PM Referred By: Confirmed By:CORINA MACIAS
--- NOTE | 2019-01-21 08:19 | RADIOLOGY IMAGING REPORT ---
FACILITY: [facility] - [place] PATIENT NAME: Arline Ramirez : 1935 MR: [id number] V: [id number] EXAM DATE: ORDERING PHYSICIAN: NESTOR AGARWAL TECHNOLOGIST: Location: [facility] - [place] Patient: Arline Ramirez : 1935 Visit/Account:[id number] Date of Sevice: 01/21/2019 Exam type: CHEST PA LAT History: Yes pressure last two hours. Cough and shortness of breath on 3 L of oxygen Comparison: CTA chest January 17, 2019. Findings: The lungs are free of acute effusions, infiltrates or edema. Cardiac silhouette is normal in size. Previously noted pulmonary nodules are better depicted on the recent CT scan. Small hiatal hernia pr ojects the retrocardiac space. IMPRESSION: 1. No acute cardiopulmonary process is seen Report Dictated By: Amalia Mccauley MD at 01/21/2019 8:13 AM Report E-Signed By: Amalia Mccauley MD at 01/21/2019 8:15 AM WSN:[id number]
[2019-01-21] MEDS ORDERED: IOPAMIDOL 76% 100 ML INFUS BTL 100 ML ONE (08:22)
[2019-01-21] MEDS ORDERED: NS(*) 0.9% 50 ML BAG 50 ML ONE (08:22)
--- NOTE | 2019-01-21 09:02 | RADIOLOGY IMAGING REPORT ---
FACILITY: [facility] - [place] PATIENT NAME: Arline Ramirez : 1935 MR: [id number] V: [id number] EXAM DATE: ORDERING PHYSICIAN: NESTOR AGARWAL TECHNOLOGIST: Location: [facility] Patient: Arline Ramirez : 1935 Visit/Account:[id number] Date of Sevice: 01/21/2019 EXAMINATION: CTA Chest With Contrast 01/21/2019 8:00 AM HISTORY: chest pain TECHNIQUE: Pulmonary embolus protocol - Thin-slice axial imaging of the chest was performed during maximal pulmonary arterial opacification with intravenous nonionic iodinated contrast. 3D slab MIPs a nd 2D reconstructions in the coronal and sagittal planes were performed. [employer] images have b een stored on PACS. Contrast: 75 mL of IV Isovue 370. One of the following dose optimization techniques was utilized in the performance of this exam: Autom ated exposure control; adjustment of the mA and/or kV according to the patient's size; or use of an i terative reconstruction technique. Specific details can be referenced in the facility's radiology C T exam operational policy. COMPARISON STUDIES: 01/17/2019, 04/16/2008. FINDINGS: Angiographic Findings: Pulmonary arteries: There are no filling defects in the main, right, left, lobar, segmental or visual ized sub-segmental branches of the pulmonary arterial system Other vasculature: Atherosclerosis includes coronary disease. Additional non-angiographic findings: Lungs / pleura: Mild emphysema with apical predominance. Single 2.5 cm bulla in the left lower lobe. Noncalcified pulmonary nodules in the right lower lobe. 7 x 6 mm (series 5 image 59) is new since 04/04. 9 x 7 mm (image 65) is unchanged since 2007 and presumably benign.. Indistinct 4 mm posterior medial left upper lobe micronodule (image 34) was also not present in 2007. Slightly lobulated thick ening along the interlobar fissure on the left (images 42 through 44) is improved from 01/17/2019 and likely benign. Consolidation which probably atelectasis or scarring in the posterior right base is sl ightly progressed comparing back to 2007. Acute infiltrate is not felt as likely. Mediastinum / pinky: negative Heart / pericardium: negative Musculoskeletal / Body wall: Degenerative changes in the spine. Stable slight superior endplate wedgi ng or concavity at T9. Lymph node assessment: negative Lower neck: negative Upper abdomen: Hiatal hernia. Granulomatous calcifications. Left adrenal nodule is little grown since 2008 and has fat density centrally consistent with a benign adenoma. Low-density renal cortical cyst s. IMPRESSION: 1. Negative CTA evaluation for PE. 2. Atelectasis or scarring in the posterior right base is similar to 01/17/2019, only mildly progresse d comparing back to 2007. 3. Pulmonary nodules as above. 7 mm right lower lobe pulmonary nodule is new comparing back to 2007 a nd follow-up will be indicated. Adjacent 9 mm right lower lobe pulmonary nodule is stable since 2008. Based on size, 6-12 month follow-up interval is recommended for the 7 mm nodule. At that time the in distinct 4 mm left upper lobe nodule and the thickening along the left interlobar fissure can also be followed. 4. Left adrenal nodule is little changed since 2008 and has density consistent with a benign adenoma. Report Dictated By: Luis Enrique García MD at 01/21/2019 8:37 AM Report E-Signed By: Luis Enrique García MD at 01/21/2019 8:58 AM WSN:[id number]
[2019-01-21 09:45] VITALS: BP 140/77
== END 2019-01-21 10:17 | disposition home or self-care (01) ==
LOC: ER 07:11
DX: R07.89 Other chest pain (principal)
CPT/HCPCS: 36415; 71046; 71275; 84484; 85025; 85379; 93005; 99284; A9270; J7050; Q9967; 82040; 82247; 82310; 82374; 82435; 82565; 82947; 84075; 84132; 84155; 84295; 84450; 84460; 84520

== ENCOUNTER → 2019-01-21 | Outpatient (CLI) | payer MEDICARE, OTHER ==
[~2019-01-21] MED LIST changes: +DILT120C12 PO; +METO25TA23 PO; +PRED20TA6 PO; +RIV10 PO
== END ==
LOC: AMB 06:26
PROVIDERS: ATTEND Nurse Practitioner
DX: R07.89 Other chest pain (principal); R06.00 Dyspnea, unspecified; M25.552 Pain in left hip; I48.91 Unspecified atrial fibrillation
CPT/HCPCS: A0425; A0427

== ENCOUNTER 2019-01-26 19:46 | Observation (INO) | payer MEDICARE, OTHER ==
[~2019-01-26] VITALS: Ht 157.5 cm; Wt 65.3 kg
--- NOTE | 2019-01-26 19:48 | ER Report ---
History and Physical Time Seen By MD: 19:48 HPI/ROS CHIEF COMPLAINT: Dizziness, diaphoresis HISTORY OF PRESENT ILLNESS: 83-year-old female presents ambulatory to the ER complaining of a diaphoretic episode while she was messing with her oxygen this evening. Patient became a little dizzy and diaphoretic. She notes her blood pressure increased. Patient denies chest pain, shortness of breath, headache or nausea. Patient reports she feels a little shaky on arrival to the ER. Otherwise, normal. Patient was admitted recently for COPD exacerbation from 01/17-. REVIEW OF SYSTEMS: Respiratory: No cough, no dyspnea. Cardiovascular: No chest pain, no palpitations. Gastrointestinal: No vomiting, no abdominal pain. Musculoskeletal: No back pain. Allergies: Coded Allergies: Egg Derived (Verified Allergy, Intermediate, HIVES, 01/26/19) Tetanus Vaccines and Toxoid (Verified Allergy, Intermediate, ANAPHYLAXIS, 01/26/19) Influenza Virus Vaccines (Verified Allergy, Unknown, 01/26/19) Home Meds Active Scripts Prednisone (PREDNISONE) 20 Mg Tablet, 40 MG PO QDAY for 7 Days, #14 TAB Prov:SHANE ALVAREZ DO 01/19/19 Amlodipine Besylate (AMLODIPINE BESYLATE) 5 Mg Tablet, 1 TAB PO QDAY, #90 TAB 2 Refills Prov:SAVANNAH GOOD MD 10/10/17 Lisinopril (LISINOPRIL) 5 Mg Tablet, 1 TAB PO QDAY, #90 TAB 3 Refills Prov:SAVANNAH GOOD MD 06/04/17 Pantoprazole Sodium (PANTOPRAZOLE SODIUM) 40 Mg Tablet.dr, 1 TAB PO PRN PRN for heartburn, #90 TAB.SR 4 Refills Prov:SAVANNAH GOOD MD 01/17/17 Atenolol/Chlorthalidone (ATENOLOL-CHLORTHAL 50-25 TB) 1 Each Tablet, 0.5 TAB PO QDAY, #45 TAB 0 Refills Prov:SAVANNAH GOOD MD 11/30/16 Reported Medications Sodium Chloride (CAROLINE-128) 15 Ml Drops, 1 GTT OP BID 01/30/16 Vit C/E/Zn/Coppr/Lutein/Zeaxan (Preservision Areds 2 Softgel) 1 Each Capsule, 2 CAP PO QDAY 01/30/16 Glucosa Stiles 2KCL/Chondroitin Stiles (GLUCOSAMINE & CHONDROITIN CAP) 1 Each Capsule, 1 CAP PO BID 01/30/16 Cholecalciferol (Vitamin D3) (VITAMIN D) 2,000 Unit Tablet, 1 CAP PO QDAY 11/11/14 Past Medical/Surgical History Past Medical History HEENT: Reports hx of: macular degeneration (bilateral. Has eye exams in [place]. ) Cardiovascular: Reports hx of: hypertension (tx since 2000. ) Respiratory: Reports hx of: COPD (peak flow 220 in 12/19. 300 in 2007. Tends more to emphysema.) Gastrointestinal: Reports hx of: GERD (mild and longstanding. Never needed EGD. ) Musculoskeletal: Reports hx of: osteoporosis (Dx 2007 and tx with fosamax x 3 years. no hx fx. ) Past Surgical History HEENT: Reports hx of: cataract extraction (1999 bilat) Gynecologic: Reports hx of: other LEATH[employer] C[employer]TER surgery (uterine suspension after child ) Integumentary: Reports hx of: skin cancer removal (BCC Dr. Skinner) Hx Smoking: Yes (LONG TIME [id number] 10-12 YEARS AGO) Smoking Status: Former Smoker Exposure to Second Hand Smoke?: Yes Hx Substance Use Disorder: No Hx Alcohol Use: No Constitutional Vital Sign - Last 24 Hours 01/26/19 01/26/19 01/26/19 01/26/19 19:47 19:47 20:00 20:15 Temp 97.6 Pulse 124 126 93 Resp 18 13 7 B/P (MAP) 172/100 129/88 (102) 138/83 (101) Pulse Ox 93 91 91 O2 Delivery Nasal Cannula O2 Flow Rate 1.0 01/26/19 01/26/19 01/26/19 01/26/19 20:30 20:45 21:00 21:15 Pulse 102 119 104 107 Resp 16 15 16 21 B/P (MAP) 121/76 (91) 116/82 (93) 123/69 (87) 119/80 (93) Pulse Ox 90 94 89 94 01/26/19 01/26/19 01/26/19 01/26/19 21:20 21:30 21:35 21:45 Pulse 113 109 Resp 13 19 B/P (MAP) 128/83 (98) 139/80 (99) Pulse Ox 94 94 01/26/19 01/26/19 01/26/19 01/26/19 21:50 21:55 22:00 22:05 Pulse 104 107 116 Resp 13 13 13 B/P (MAP) 128/99 (109) Pulse Ox 94 94 94 01/26/19 01/26/19 01/26/19 01/26/19 22:15 22:30 22:35 22:45 Pulse 100 Resp 12 B/P (MAP) 133/118 (123) 126/78 (94) 113/81 (92) Pulse Ox 94 01/26/19 01/26/19 01/26/19 01/26/19 23:00 23:05 23:15 23:30 Pulse 119 Resp 18 B/P (MAP) 128/86 (100) 150/88 (108) 138/97 (111) Pulse Ox 93 01/26/19 23:35 Pulse 97 Resp 13 Pulse Ox 94 Physical Exam General Appearance: The patient is alert, has no immediate need for airway protection and no current signs of toxicity. Vital signs stable, tachycardic to the 140s quality assurance monitor final HEENT: Pupils equal and round no injection. TMs normal, oropharynx no redness or exudate Respiratory: Chest is non tender, lungs are clear to auscultation. No wheezing or rails Cardiac: regular rate and rhythm Gastrointestinal: Abdomen is soft and non tender, no masses, bowel sounds normal. Musculoskeletal: Neck: Neck is supple and non tender. Extremities have full range of motion and are non tender. Skin: No rashes or lesions. DIFFERENTIAL DIAGNOSIS: After history and physical exam differential diagnosis was considered for syncope including but not limited to vasovagal syncope, arrhythmia, dehydration, and blood loss. Medical Decision Making Data Points Result Diagram: 01/26/19195401/26/191954 Laboratory Hematology Test 01/26/19 19:55 01/26/19 21:07 Red Blood Count 4.99 M/uL (4.17-5.56) Mean Corpuscular Volume 91.5 fL (80.0-96.0) Mean Corpuscular Hemoglobin 30.6 pg (26.0-33.0) Mean Corpuscular Hemoglobin Concent 33.4 g/dL (32.0-36.0) Red Cell Distribution Width 14.6 % (11.5-14.5) Mean Platelet Volume 7.8 fL (7.2-11.1) Neutrophils (%) (Auto) 79.9 % (39.4-72.5) Lymphocytes (%) (Auto) 8.4 % (17.6-49.6) Monocytes (%) (Auto) 10.8 % (4.1-12.4) Eosinophils (%) (Auto) 0.2 % (0.4-6.7) Basophils (%) (Auto) 0.7 % (0.3-1.4) Nucleated RBC Relative Count (auto) 0.0 /100WBC Neutrophils # (Auto) 19.3 K/uL (2.0-7.4) Lymphocytes # (Auto) 2.0 K/uL (1.3-3.6) Monocytes # (Auto) 2.6 K/uL (0.3-1.0) Eosinophils # (Auto) 0.1 K/uL (0.0-0.5) Basophils # (Auto) 0.2 K/uL (0.0-0.1) Nucleated RBC Absolute Count (auto) 0.00 K/uL Peripheral Blood Smear Yes Y/N Sodium Level 128 mmol/L (137-145) Potassium Level 4.0 mmol/L (3.5-5.0) Chloride Level 90 mmol/L (98-107) Carbon Dioxide Level 30 mmol/L (22-31) Blood Urea Nitrogen 20 mg/dl (7-18) Creatinine 0.80 mg/dl (0.52-1.04) Glomerular Filtration Rate Calc > 60.0 Random Glucose 103 mg/dl (75-110) Calcium Level 9.7 mg/dl (8.4-10.2) Total Bilirubin 0.2 mg/dl (0.2-1.3) Aspartate Amino Transf (AST/SGOT) 24 U/L (0-35) Alanine Aminotransferase (ALT/SGPT) 22 U/L (0-56) Alkaline Phosphatase 105 U/L (0-126) Troponin I < 0.012 ng/ml B-Type Natriuretic Peptide 256 pg/ml (0-100) Total Protein 6.7 g/dl (6.3-8.2) Albumin 4.1 g/dl (3.5-5.0) Thyroid Stimulating Hormone (TSH) 1.63 uIU/ml (0.46-4.68) Urine Color Yellow Urine Clarity Slightly-cloudy Urine pH 7.0 pH (4.8-9.5) Urine Specific [place] 1.006 Urine Protein Negative mg/dL (NEGATIVE) Urine Glucose (UA) Negative mg/dL (NEGATIVE) Urine Ketones Negative mg/dL (NEGATIVE) Urine Blood Negative (NEGATIVE) Urine Nitrite Negative (NEGATIVE) Urine Bilirubin Negative (NEGATIVE) Urine Urobilinogen Negative mg/dL (0.2-1.9) Urine Leukocyte Esterase Trace (NEGATIVE) Urine RBC <1 /HPF (0-2/HPF) Urine WBC 2 /HPF (0-5/HPF) Urine Squamous Epithelial Cells None /LPF (</=FEW) Urine Bacteria Few /HPF (NONE-FEW) Urine Mucus None /HPF (NONE-FEW) Chemistry Test 01/26/19 19:55 01/26/19 21:07 White Blood Count 24.2 k/uL (4.5-11.0) Red Blood Count 4.99 M/uL (4.17-5.56) Hemoglobin 15.2 g/dL (12.0-16.0) Hematocrit 45.6 % (34.0-47.0) Mean Corpuscular Volume 91.5 fL (80.0-96.0) Mean Corpuscular Hemoglobin 30.6 pg (26.0-33.0) Mean Corpuscular Hemoglobin Concent 33.4 g/dL (32.0-36.0) Red Cell Distribution Width 14.6 % (11.5-14.5) Platelet Count 744 K/uL (150-450) Mean Platelet Volume 7.8 fL (7.2-11.1) Neutrophils (%) (Auto) 79.9 % (39.4-72.5) Lymphocytes (%) (Auto) 8.4 % (17.6-49.6) Monocytes (%) (Auto) 10.8 % (4.1-12.4) Eosinophils (%) (Auto) 0.2 % (0.4-6.7) Basophils (%) (Auto) 0.7 % (0.3-1.4) Nucleated RBC Relative Count (auto) 0.0 /100WBC Neutrophils # (Auto) 19.3 K/uL (2.0-7.4) Lymphocytes # (Auto) 2.0 K/uL (1.3-3.6) Monocytes # (Auto) 2.6 K/uL (0.3-1.0) Eosinophils # (Auto) 0.1 K/uL (0.0-0.5) Basophils # (Auto) 0.2 K/uL (0.0-0.1) Nucleated RBC Absolute Count (auto) 0.00 K/uL Peripheral Blood Smear Yes Y/N Glomerular Filtration Rate Calc > 60.0 Calcium Level 9.7 mg/dl (8.4-10.2) Total Bilirubin 0.2 mg/dl (0.2-1.3) Aspartate Amino Transf (AST/SGOT) 24 U/L (0-35) Alanine Aminotransferase (ALT/SGPT) 22 U/L (0-56) Alkaline Phosphatase 105 U/L (0-126) Troponin I < 0.012 ng/ml B-Type Natriuretic Peptide 256 pg/ml (0-100) Total Protein 6.7 g/dl (6.3-8.2) Albumin 4.1 g/dl (3.5-5.0) Thyroid Stimulating Hormone (TSH) 1.63 uIU/ml (0.46-4.68) Urine Color Yellow Urine Clarity Slightly-cloudy Urine pH 7.0 pH (4.8-9.5) Urine Specific Hendrix 1.006 Urine Protein Negative mg/dL (NEGATIVE) Urine Glucose (UA) Negative mg/dL (NEGATIVE) Urine Ketones Negative mg/dL (NEGATIVE) Urine Blood Negative (NEGATIVE) Urine Nitrite Negative (NEGATIVE) Urine Bilirubin Negative (NEGATIVE) Urine Urobilinogen Negative mg/dL (0.2-1.9) Urine Leukocyte Esterase Trace (NEGATIVE) Urine RBC <1 /HPF (0-2/HPF) Urine WBC 2 /HPF (0-5/HPF) Urine Squamous Epithelial Cells None /LPF (</=FEW) Urine Bacteria Few /HPF (NONE-FEW) Urine Mucus None /HPF (NONE-FEW) Urinalysis Test 01/26/19 21:07 Urine Color Yellow Urine Clarity Slightly-cloudy Urine pH 7.0 pH (4.8-9.5) Urine Specific Hendrix 1.006 Urine Protein Negative mg/dL (NEGATIVE) Urine Glucose (UA) Negative mg/dL (NEGATIVE) Urine Ketones Negative mg/dL (NEGATIVE) Urine Blood Negative (NEGATIVE) Urine Nitrite Negative (NEGATIVE) Urine Bilirubin Negative (NEGATIVE) Urine Urobilinogen Negative mg/dL (0.2-1.9) Urine Leukocyte Esterase Trace (NEGATIVE) Urine RBC <1 /HPF (0-2/HPF) Urine WBC 2 /HPF (0-5/HPF) Urine Squamous Epithelial Cells None /LPF (</=FEW) Urine Bacteria Few /HPF (NONE-FEW) Urine Mucus None /HPF (NONE-FEW) EKG/Imaging EKG Interpretation 12 lead EK Rhythm: Atrial fibrillation rate 141 [place]: normal QRS: normal ST segments: Nonspecific T wave affect, comparison to previous EKG dated 01/21/19. Patient was in a normal sinus rhythm without evidence of ischemia. Imaging X-ray: Single view portable chest x-ray was obtained. I viewed the images myself on the PACS system. My interpretation of the images is: No infiltrate, no effusion, normal mediastinum, comparison to previous chest x-ray 01/21/19, no significant change. The radiologist interpretation had no clinically significant variation from this interpretation. ED Course/Re-evaluation Clinical Indication for ER IV: IV Access ED Course Patient was minute to an examination room. H&P was done. The differential di agnoses was considered. On clinical examination. She noted to be in atrial fibrillation. An EKG is performed which shows atrial fibrillation. Comparison to previous EKG from her admission just a few days ago shows normal sinus rhythm. She has no history of atrial fibrillation. She became a little bit diaphoretic and dizzy the onset. She's had no chest pain, no shortness of breath. She was seen in the emergency department on 01/21 for evaluation. Her diagnostic studies are unremarkable. She's treated with diltiazem IV 3. Her rate appears well controlled. I did spoke with her at length about going home on diltiazem oral medication with follow-up with her primary care doctor's for e chocardiogram and consideration of anticoagulation. Patient's son is very concerned and think she needs to be admitted for close monitoring of her rate. Patient has an elevated white blood cell count, but that likely due to the steroids. She was on recently. Her white count 29,000. During her admission on steroids. 01/26/2019 11:13:25 pm case discussed with Dr. Boyd hospitalist on-call, who accepts the patient for admission for monitoring of new-onset A. fib. Decision to Disposition Date: Jan 26, 2019 Decision to Disposition Time: 23:13 Depart Departure Latest Vital Signs Vital Signs Date Time Temp Pulse Resp B/P (MAP) Pulse Ox O2 Delivery O2 Flow Rate FiO2 01/26/19 23:35 97 13 94 01/26/19 23:30 138/97 (111) 01/26/19 19:47 97.6 Nasal Cannula 01/26/19 19:47 1.0 Impression: Primary Impression: New onset a-fib Condition: Improved Disposition: Admitted from ER Referrals: SAVANNAH GOOD MD (PCP) GONZALES ZAVALA DO Jan 26, 2019 19:48
[2019-01-26 20:06] LABS: PLATELET COUNT, AUTOMATED 744 K/uL (150-450)
--- NOTE | 2019-01-26 20:10 | EKG ---
FACILITY: [facility] [place]IENT NAME: AURORA MORGAN : [id number] MR: [id number] V: [id number] EXAM DATE: ORDERING PHYSICIAN: GONZALES ZAVALA TECHNOLOGIST: KATH Test Reason : DIZZY DIAPHORETIC Blood Pressure : / mmHG Vent. Rate : 141 BPM Atrial Rate : 125 BPM P-R Int : 000 ms QRS Dur : 080 ms QT Int : 300 ms P-R-T Axes : 000 084 057 degrees QTc Int : 459 ms Atrial fibrillation Nonspecific ST and T wave abnormality , probably digitalis effect Abnormal ECG When compared with ECG of 21-JAN-2019 06:54, Atrial fibrillation has replaced Sinus rhythm Vent. rate has increased BY [address] no longer elevated in Inferior leads ST now depressed in Lateral leads Confirmed by CORINA MACIAS ([id number]) on 01/27/2019 6:37:52 AM Referred By: Confirmed By:CORINA MACIAS
[2019-01-26] MEDS ORDERED: DILTIAZEM 5 MG/ML 5ML IVPUSH IVP ONE ×3 (20:45→22:05)
--- NOTE | 2019-01-26 20:55 | RADIOLOGY IMAGING REPORT ---
FACILITY: [facility] PATIENT NAME: Arline Ramirez : 1935 MR: [id number] V: [id number] EXAM DATE: ORDERING PHYSICIAN: GONZALES ZAVALA TECHNOLOGIST: Location: [facility] - [place] Patient: Arline Ramirez : 1935 Visit/Account:[id number] Date of Sevice: 01/26/2019 CHEST SINGLE AP COMPARISONS: 2 view chest dated January 21, 2019 ADDITIONAL PERTINENT HISTORY: Chest pain FINDINGS: Cardiomediastinal silhouette: Negative. 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 Lung jimenez: Minimal bibasilar regions of scarring. Otherwise negative Pleural spaces: Negative. Osseous structures: Negative. Surrounding soft tissues: Negative. IMPRESSION: 1. Minimal bibasilar regions of scarring. 2. No acute cardiopulmonary disease. Report Dictated By: Rakesh Chavira MD at 01/26/2019 8:51 PM Report E-Signed By: Rakesh Chavira MD at 01/26/2019 8:52 PM WSN:[id number]
[2019-01-27 00:15] VITALS: BP 136/105
[2019-01-27] MEDS ORDERED: DILTIAZEM CD 120 MG CAPCR PO ONE ×2 (00:45→10:35)
--- NOTE | 2019-01-27 00:56 | History & Physical ---
History of Present Illness Chief Complaint Rapid heart rate History of Present Illness This patient presented to the emergency room complaining of rapid heart rate, dizziness, and diaphoresis. She was found to be in atrial fibrillation with a rapid rate. She was controlled with a dose of diltiazem in the emergency room. She has no previous history of atrial fibrillation. History Problems: (1) Chronic obstructive pulmonary disease (COPD) Status: Chronic (2) GERD with esophagitis Status: Chronic (3) Essential hypertension Status: Chronic Home Meds Active Scripts Prednisone (PREDNISONE) 20 Mg Tablet, 40 MG PO QDAY for 7 Days, #14 TAB Prov:SHANE ALVAREZ DO 01/19/19 Amlodipine Besylate (AMLODIPINE BESYLATE) 5 Mg Tablet, 1 TAB PO QDAY, #90 TAB 2 Refills Prov:SAVANNAH GOOD MD 10/10/17 Lisinopril (LISINOPRIL) 5 Mg Tablet, 1 TAB PO QDAY, #90 TAB 3 Refills Prov:SAVANNAH GOOD MD 06/04/17 Pantoprazole Sodium (PANTOPRAZOLE SODIUM) 40 Mg Tablet.dr, 1 TAB PO PRN PRN for heartburn, #90 TAB.SR 4 Refills Prov:SAVANNAH GOOD MD 01/17/17 Atenolol/Chlorthalidone (ATENOLOL-CHLORTHAL 50-25 TB) 1 Each Tablet, 0.5 TAB PO QDAY, #45 TAB 0 Refills Prov:SAVANNAH GOOD MD 11/30/16 Reported Medications Sodium Chloride (CAROLINE-128) 15 Ml Drops, 1 GTT OP BID 01/30/16 Vit C/E/Zn/Coppr/Lutein/Zeaxan (Preservision Areds 2 Softgel) 1 Each Capsule, 2 CAP PO QDAY 01/30/16 Glucosa Stiles 2KCL/Chondroitin Stiles (GLUCOSAMINE & CHONDROITIN CAP) 1 Each Capsule, 1 CAP PO BID 01/30/16 Cholecalciferol (Vitamin D3) (VITAMIN D) 2,000 Unit Tablet, 1 CAP PO QDAY 11/11/14 Allergies: Coded Allergies: Egg Derived (Verified Allergy, Intermediate, HIVES, 01/26/19) Tetanus Vaccines and Toxoid (Verified Allergy, Intermediate, ANAPHYLAXIS, 01/26/19) Influenza Virus Vaccines (Verified Allergy, Unknown, 01/26/19) Patient History: FH: CHF (congestive heart failure) MOTHER, , Age:84 FH: breast cancer Paternal aunt, , Age:88, Onset:48 FH: dementia FATHER, , Age:88 FH: hypertension MOTHER, , Age:84 FH: rheumatic fever MOTHER, , Age:84 Hx Smoking: Yes (LONG TIME NSE-0SRN-PECC 10-12 YEARS AGO) Smoking Status: Former Smoker Exposure to Second Hand Smoke?: Yes Hx Alcohol Use: No Hx Substance Use Disorder: No Review of Systems All Systems Reviewed/Normal: Yes, Except as Noted Cardiovascular: Palpitations Exam Vital Signs Vital Signs Date Time Temp Pulse Resp B/P (MAP) Pulse Ox O2 Delivery O2 Flow Rate FiO2 01/27/19 00:15 98.0 116 16 136/105 (115) 96 Nasal Cannula 2.0 Neuro: No Gross deficits Eyes: PERRLA Cardiovascular: Other (Irregular rhythm.) Respiratory: Clear to Auscultation Extremities: No Edema Integumentary: No Cyanosis Medical Decision Making Data Points Result Diagram: 01/26/19195401/26/191954 Assessment and Plan Problems: (1) New onset a-fib Status: Acute Assessment & Plan: She presented with atrial fibrillation. Her rate was controlled with diltiazem in the emergency room. We will place her on oral diltiazem and aspirin. An echocardiogram and TSH are pending. (2) Chronic obstructive pulmonary disease (COPD) Status: Chronic Assessment & Plan: She was recently admitted for COPD and just completed a cou rse of prednisone. (3) GERD with esophagitis Status: Chronic Assessment & Plan: She is on chronic treatment with Protonix. (4) Essential hypertension Status: Chronic Assessment & Plan: She has been on amlodipine, atenolol, chlorthalidone, and lisinopril. All of these have been held so that we can see what her response to the diltiazem is. Venous Thromboembolism Antithrombotics Is Pt On Any Antithrombotics?: No Exam Sepsis Risk: No Definite Risk CORINA MACIAS DO Jan 27, 2019 00:56
[2019-01-27 03:42] VITALS: BP 135/88
[2019-01-27 08:18] VITALS: BP 126/85
[2019-01-27] MEDS ORDERED: DILTIAZEM CD 120 MG CAPCR PO SCH ×2 (09:00→10:30)
[2019-01-27] MEDS ORDERED: ASPIRIN 81 MG ENTERIC COATED PO SCH (09:00)
[2019-01-27] MEDS ORDERED: PANTOPRAZOLE SOD 40 MG TABEC PO PRN (09:00)
[2019-01-27 09:06] VITALS: Ht 157.5 cm; Wt 65.3 kg
[2019-01-27 11:56] VITALS: BP 117/68
--- NOTE | 2019-01-27 15:55 | Hospitalist Progress Note ---
Subjective Progress Notes Subjective No cp/sob. Overall, feels better. Heart rate better controlled. Physical Exam Vital Signs Date Time Temp Pulse Resp B/P (MAP) Pulse Ox O2 Delivery O2 Flow Rate FiO2 01/27/19 11:56 98.2 82 10 117/68 (84) 93 Nasal Cannula 1.0 Intake and Output 01/27/19 07:00 Intake Total 200 ml Balance 200 ml Intake Oral 200 ml # Voids 3 General Appearance: Alert, Awake, No Acute Distress Cardiovascular: Other (Irreg, irreg, no m/r/g) Extremities: No Edema Result Diagram: 01/26/19195401/26/191954 Assessment and Plan Problems: (1) New onset a-fib Status: Acute Assessment & Plan: She presented diaphoresis and dizziness the evening of admission. Her rate was controlled with diltiazem in the emergency room. She started with oral Diltiazem. She will be on Xarelto for stroke prophylaxis. An echocardiogram and TSH are pending. An appointment with Cardiology has been made for followup. (2) Chronic obstructive pulmonary disease (COPD) Status: Chronic Assessment & Plan: She was recently admitted for COPD and just completed a course of prednisone. (3) GERD with esophagitis Status: Chronic Assessment & Plan: She is on chronic treatment with Protonix. (4) Essential hypertension Status: Chronic Assessment & Plan: She has been on amlodipine, atenolol, chlorthalidone, and lisinopril. All of these have been held so that we can see what her response to the diltiazem is. Exam Sepsis Risk: No Definite Risk ROXANN CAO MD Jan 27, 2019 15:55
[2019-01-27] MEDS ORDERED: RIVAROXABAN 10 MG TAB PO SCH (17:00)
[2019-01-27 18:28] VITALS: BP 124/72
[2019-01-27] MEDS ORDERED: ACETAMINOPHEN 500 MG TAB PO PRN (18:40)
[2019-01-27] MEDS ORDERED: CELECOXIB 100 MG CAP PO PRN (18:40)
[2019-01-27] MEDS: CALCIUM CARBONATE 500 MG CHEW PO PRN (20:47)
[2019-01-27 22:07] VITALS: BP 132/78
[2019-01-28 02:39] VITALS: BP 136/68
[2019-01-28 06:16] LABS: PLATELET COUNT, AUTOMATED 492 K/uL (150-450)
[2019-01-28 07:31] VITALS: BP 125/75
[2019-01-28] MEDS ORDERED: DILTIAZEM CD 120 MG CAPCR PO SCH ×2 (09:00)
[2019-01-28] MEDS: CALCIUM CARBONATE 500 MG CHEW PO PRN (09:02)
[2019-01-28] MEDS ORDERED: METOPROLOL SUCC XL 25 MG TABCR PO SCH (10:15)
[2019-01-28 11:56] VITALS: BP 107/57
[2019-01-28] MEDS ORDERED: RIV10 PO (12:09)
[2019-01-28] MEDS ORDERED: DILT120C12 PO (12:09)
[2019-01-28] MEDS ORDERED: METO25TA23 PO (12:09)
--- NOTE | 2019-01-28 12:15 | Hospitalist Depart ---
Discharge Summary Reason for Hosp/Final Diag: (1) New onset a-fib Status: Acute Hospital Course & Plan: She presented diaphoresis and dizziness the evening of admission. Her rate was controlled with diltiazem in the emergency room. She started with oral Diltiazem and metoprolol added for rate control. She will be on Xarelto for stroke prophylaxis. An echocardiogram was essentially normal and TSH WNL. An appointment with Cardiology has been made for followup. (2) Chronic obstructive pulmonary disease (COPD) Status: Chronic Hospital Course & Plan: She was recently admitted for COPD and just completed a course of prednisone. (3) GERD with esophagitis Status: Chronic Hospital Course & Plan: She is on chronic treatment with Protonix. (4) Essential hypertension Status: Chronic Hospital Course & Plan: She has been on amlodipine, atenolol, chlorthalidone, and lisinopril. All of these have been stopped as BP with metoprolol and diltiazem is well controlled. Departure Weight (Pounds): 144 Weight (Ounces): 1.0 Result Diagram: 01/28/1941 01/26/191954 Condition: Improved Discharge: Home Discharge Instructions Home Meds Active Scripts Rivaroxaban (XARELTO 10 MG TAB (OR EQUIV)) 10 Mg Tablet, 15 MG PO QPM for 30 Days, #45 TAB Prov:SHANE ALVAREZ DO 01/28/19 Metoprolol Succinate (METOPROLOL SUCCINATE) 25 Mg Tab.er.24h, 25 MG PO QDAY for 30 Days, #30 TAB.SR.24H Prov:SHANE ALVAREZ DO 01/28/19 Diltiazem Hcl (DILTIAZEM 24HR CD) 120 Mg Cap.er.24h, 240 MG PO QDAY for 30 Days, #60 CAP.SR.24H Prov:SHANE ALVAREZ DO 01/28/19 Prednisone (PREDNISONE) 20 Mg Tablet, 40 MG PO QDAY for 7 Days, #14 TAB Prov:SHANE ALVAREZ DO 01/19/19 Pantoprazole Sodium (PANTOPRAZOLE SODIUM) 40 Mg Tablet.dr, 1 TAB PO PRN PRN for heartburn, #90 TAB.SR 4 Refills Prov:SAVANNAH GOOD MD 01/17/17 Reported Medications Sodium Chloride (CAROLINE-128) 15 Ml Drops, 1 GTT OP BID 01/30/16 Vit C/E/Zn/Coppr/Lutein/Zeaxan (Preservision Areds 2 Softgel) 1 Each Capsule, 2 CAP PO QDAY 01/30/16 Glucosa Stiles 2KCL/Chondroitin Stiles (GLUCOSAMINE & CHONDROITIN CAP) 1 Each Capsule, 1 CAP PO BID 01/30/16 Cholecalciferol (Vitamin D3) (VITAMIN D) 2,000 Unit Tablet, 1 CAP PO QDAY 11/11/14 Discontinued Scripts Amlodipine Besylate (AMLODIPINE BESYLATE) 5 Mg Tablet, 1 TAB PO QDAY, #90 TAB 2 Refills Prov:SAVANNAH GOOD MD 10/10/17 Lisinopril (LISINOPRIL) 5 Mg Tablet, 1 TAB PO QDAY, #90 TAB 3 Refills Prov:SAVANNAH GOOD MD 06/04/17 Atenolol/Chlorthalidone (ATENOLOL-CHLORTHAL 50-25 TB) 1 Each Tablet, 0.5 TAB PO QDAY, #45 TAB 0 Refills Prov:SAVANNAH GOOD MD 11/30/16 Special Instructions: You were started on diltiazem and metoprolol to control heart rate. You were started on Xarelto for stroke prophylaxis. Follow up with PCP within one week. Follow-up appointment with patient financial counselor in [place] on February 03 at 1:45 pm. Copies to: SAVANNAH GOOD MD ; Venous Thromboembolism Antithrombotics Is Pt On Any Antithrombotics?: No SHANE ALVAREZ DO Jan 28, 2019 12:15
== END 2019-01-28 12:10 | disposition home or self-care (01) ==
LOC: ER 20:06 → INTOOBSV 23:35 → MED 23:35
PROVIDERS: ADMIT Family Medicine; ATTEND Family Medicine
DX: I48.91 Unspecified atrial fibrillation (principal); I10 Essential (primary) hypertension; J44.9 Chronic obstructive pulmonary disease, unspecified; K21.0 Gastro-esophageal reflux disease with esophagitis; R07.9 Chest pain, unspecified
CPT/HCPCS: 36415; 71045; 81001; 83880; 84443; 84484; 85025; 93005; 93306; 96374; 96375; 99284; A9270; G0378; J3490; 82040; 82247; 82310; 82374; 82435; 82565; 82947; 84075; 84132; 84155; 84295; 84450; 84460; 84520

== ENCOUNTER → 2019-02-09 | Outpatient (CLI) | payer MEDICARE, OTHER ==
[2019-01-27 09:06] VITALS: BMI 26.3
[~2019-02-09] MED LIST changes: +DILT120C12 PO; +METO25TA23 PO; +RIV10 PO
== END ==
LOC: RESP 12:59
PROVIDERS: ATTEND Family Medicine
DX: J98.4 Other disorders of lung (principal)
CPT/HCPCS: 94060; 94726; 94729

== ENCOUNTER 2019-02-20 11:56 | Emergency (ER) | payer MEDICARE, OTHER ==
[2019-01-27 09:06] VITALS: Wt 65.3 kg
[~2019-02-20 11:56] MED LIST changes: -SULF-198 PO
[2019-02-20] MEDS ORDERED: ASPIRIN 81 MG CHEW PO ONE (12:05)
[2019-02-20] MEDS ORDERED: GI COCKTAIL 60 ML BTL PO PRN (12:05)
--- NOTE | 2019-02-20 12:12 | ER Report ---
History and Physical Time Seen By MD: 12:10 Hx. of Stated Complaint: sob. dizziness. chest discomfort since last night HPI/ROS CHIEF COMPLAINT: Chest pain HISTORY OF PRESENT ILLNESS: 84-year-old female comes emergency Department with a complaint of chest pain. Patient states that this began last evening. Patient states she went to bed last night was having trouble sleeping nonmobile tonight noticed little bit of pain mostly in her hypogastrium and epigastric area says he she gets that quite often when she has reflux worse when she laid flat better when she sat up she had no vomiting or diarrhea no emesis. One as of this is exactly the same as her other reflux episode she said yes however she was concerned about to come to the ER. Patient denies any shortness of breath however is history of COPD which is on submental oxygen. Patient also is concerned that her blood pressure may be elevated. On arrival to the emergency department her pain is completely subsided and she is completely pain-free. Patient has no additional complaints at this time REVIEW OF SYSTEMS: Respiratory: No cough, no dyspnea. Cardiovascular: Chest pain or palpitation Gastrointestinal: No vomiting, no abdominal pain. Musculoskeletal: No back pain. Remainder of the 14 system rev: Yes Allergies: Coded Allergies: Egg Derived (Verified Allergy, Intermediate, HIVES, 01/26/19) Tetanus Vaccines and Toxoid (Verified Allergy, Intermediate, ANAPHYLAXIS, 01/26/19) Influenza Virus Vaccines (Verified Allergy, Unknown, 01/26/19) Home Meds Active Scripts Rivaroxaban (XARELTO 10 MG TAB (OR EQUIV)) 10 Mg Tablet, 15 MG PO QPM for 30 Days, #45 TAB Prov:SHANE ALVAREZ 01/28/19 Metoprolol Succinate (METOPROLOL SUCCINATE) 25 Mg Tab.er.24h, 25 MG PO QDAY for 30 Days, #30 TAB.SR.24H Prov:SHANE ALVAREZ 01/28/19 Diltiazem Hcl (DILTIAZEM 24HR CD) 120 Mg Cap.er.24h, 240 MG PO QDAY for 30 Days, #60 CAP.SR.24H Prov:SHANE ALVAREZ 01/28/19 Pantoprazole Sodium (PANTOPRAZOLE SODIUM) 40 Mg Tablet.dr, 1 TAB PO PRN PRN for heartburn, #90 TAB.SR 4 Refills Prov:SAVANNAH GOOD MD 01/17/17 Reported Medications Sodium Chloride (CAROLINE-128) 15 Ml Drops, 1 GTT OP BID 01/30/16 Vit C/E/Zn/Coppr/Lutein/Zeaxan (Preservision Areds 2 Softgel) 1 Each Capsule, 2 CAP PO QDAY 01/30/16 Glucosa Stiles 2KCL/Chondroitin Stiles (GLUCOSAMINE & CHONDROITIN CAP) 1 Each Capsule, 1 CAP PO BID 01/30/16 Cholecalciferol (Vitamin D3) (VITAMIN D) 2,000 Unit Tablet, 1 CAP PO QDAY 11/11/14 Discontinued Scripts Prednisone (PREDNISONE) 20 Mg Tablet, 40 MG PO QDAY for 7 Days, #14 TAB Prov:LEE ANN BESTSHANE 01/19/19 Reviewed Nurses Notes: Yes Old Medical Records Reviewed: Yes Hx Smoking: Yes (LONG TIME [id number] 10-12 YEARS AGO) Smoking Status: Former Smoker Exposure to Second Hand Smoke?: Yes Hx Substance Use Disorder: No Hx Alcohol Use: No Constitutional Vital Sign - Last 24 Hours 02/20/19 02/20/19 02/20/19 02/20/19 11:56 11:57 11:57 12:00 Temp 98.5 Pulse ??? 78 Resp 18 B/P (MAP) 151/81 151/81 (104) 156/90 (112) Pulse Ox 91 O2 Delivery Nasal Cannula 02/20/19 02/20/19 02/20/19 02/20/19 12:11 12:16 12:26 12:29 Pulse 79 ??? Resp 29 B/P (MAP) 154/78 (103) Pulse Ox 92 O2 Flow Rate 3.0 02/20/19 12:41 Pulse 67 Resp 16 Pulse Ox 94 Physical Exam General Appearance: [The patient is alert, has no immediate need for airway protection and no current signs of toxicity.] [ ] Eyes: Pupils equal and round no injection. Respiratory: Chest is non tender, lungs are clear to auscultation. Cardiac: regular rate and rhythm [ ] Gastrointestinal: Abdomen is soft and non tender, no masses, bowel sounds normal. Musculoskeletal: Neck: Neck is supple and non tender. Extremities have full range of motion and are non tender. Skin: No rashes or lesions. [ ] DIFFERENTIAL DIAGNOSIS: After history and physical exam differential diagnosis was considered for angina and standard and STEMI myocardial infarction gastroesophageal reflux pulmonary emboli aortic dissection Medical Decision Making Data Points Result Diagram: 02/20/19 1150 02/20/19 1150 Laboratory Hematology Test 02/20/19 11:50 02/20/19 12:32 02/20/19 13:15 Red Blood Count 4.59 M/uL (4.17-5.56) Mean Corpuscular Volume 91.8 fL (80.0-96.0) Mean Corpuscular Hemoglobin 30.2 pg (26.0-33.0) Mean Corpuscular Hemoglobin Concent 32.9 g/dL (32.0-36.0) Red Cell Distribution Width 14.6 % (11.5-14.5) Mean Platelet Volume 7.6 fL (7.2-11.1) Neutrophils (%) (Auto) 76.1 % (39.4-72.5) Lymphocytes (%) (Auto) 12.7 % (17.6-49.6) Monocytes (%) (Auto) 9.4 % (4.1-12.4) Eosinophils (%) (Auto) 1.0 % (0.4-6.7) Basophils (%) (Auto) 0.8 % (0.3-1.4) Nucleated RBC Relative Count (auto) 0.0 /100WBC Neutrophils # (Auto) 9.9 K/uL (2.0-7.4) Lymphocytes # (Auto) 1.7 K/uL (1.3-3.6) Monocytes # (Auto) 1.2 K/uL (0.3-1.0) Eosinophils # (Auto) 0.1 K/uL (0.0-0.5) Basophils # (Auto) 0.1 K/uL (0.0-0.1) Nucleated RBC Absolute Count (auto) 0.00 K/uL Peripheral Blood Smear Yes Y/N Sodium Level 136 mmol/L (137-145) Potassium Level 4.0 mmol/L (3.5-5.0) Chloride Level 99 mmol/L (98-107) Carbon Dioxide Level 31 mmol/L (22-31) Blood Urea Nitrogen 14 mg/dl (7-18) Creatinine 0.80 mg/dl (0.52-1.04) Glomerular Filtration Rate Calc > 60.0 Random Glucose 103 mg/dl (75-110) Calcium Level 9.4 mg/dl (8.4-10.2) Total Bilirubin 0.3 mg/dl (0.2-1.3) Aspartate Amino Transf (AST/SGOT) 29 U/L (0-35) Alanine Aminotransferase (ALT/SGPT) 23 U/L (0-56) Alkaline Phosphatase 85 U/L (0-126) Troponin I < 0.012 ng/ml B-Type Natriuretic Peptide 164 pg/ml (0-100) Total Protein 6.9 g/dl (6.3-8.2) Albumin 4.0 g/dl (3.5-5.0) Lipase 178 U/L (23-300) D-Dimer Quantitative (PE/DVT) 0.40 ug/ml (0-0.50) Urine Color Yellow Urine Clarity Slightly-cloudy Urine pH 6.5 pH (4.8-9.5) Urine Specific [place] 1.015 Urine Protein Negative mg/dL (NEGATIVE) Urine Glucose (UA) Negative mg/dL (NEGATIVE) Urine Ketones Negative mg/dL (NEGATIVE) Urine Blood Negative (NEGATIVE) Urine Nitrite Positive (NEGATIVE) Urine Bilirubin Negative (NEGATIVE) Urine Urobilinogen 0.2 mg/dL (0.2-1.9) Urine Leukocyte Esterase Moderate (NEGATIVE) Urine RBC None /HPF (0-2/HPF) Urine WBC 20-25 /HPF (0-5/HPF) Urine Squamous Epithelial Cells Few /LPF (</=FEW) Urine Bacteria Many /HPF (NONE-FEW) Urine Mucus None /HPF (NONE-FEW) Chemistry Test 02/20/19 11:50 02/20/19 12:32 02/20/19 13:15 White Blood Count 13.0 k/uL (4.5-11.0) Red Blood Count 4.59 M/uL (4.17-5.56) Hemoglobin 13.9 g/dL (12.0-16.0) Hematocrit 42.1 % (34.0-47.0) Mean Corpuscular Volume 91.8 fL (80.0-96.0) Mean Corpuscular Hemoglobin 30.2 pg (26.0-33.0) Mean Corpuscular Hemoglobin Concent 32.9 g/dL (32.0-36.0) Red Cell Distribution Width 14.6 % (11.5-14.5) Platelet Count 567 K/uL (150-450) Mean Platelet Volume 7.6 fL (7.2-11.1) Neutrophils (%) (Auto) 76.1 % (39.4-72.5) Lymphocytes (%) (Auto) 12.7 % (17.6-49.6) Monocytes (%) (Auto) 9.4 % (4.1-12.4) Eosinophils (%) (Auto) 1.0 % (0.4-6.7) Basophils (%) (Auto) 0.8 % (0.3-1.4) Nucleated RBC Relative Count (auto) 0.0 /100WBC Neutrophils # (Auto) 9.9 K/uL (2.0-7.4) Lymphocytes # (Auto) 1.7 K/uL (1.3-3.6) Monocytes # (Auto) 1.2 K/uL (0.3-1.0) Eosinophils # (Auto) 0.1 K/uL (0.0-0.5) Basophils # (Auto) 0.1 K/uL (0.0-0.1) Nucleated RBC Absolute Count (auto) 0.00 K/uL Peripheral Blood Smear Yes Y/N Glomerular Filtration Rate Calc > 60.0 Calcium Level 9.4 mg/dl (8.4-10.2) Total Bilirubin 0.3 mg/dl (0.2-1.3) Aspartate Amino Transf (AST/SGOT) 29 U/L (0-35) Alanine Aminotransferase (ALT/SGPT) 23 U/L (0-56) Alkaline Phosphatase 85 U/L (0-126) Troponin I < 0.012 ng/ml B-Type Natriuretic Peptide 164 pg/ml (0-100) Total Protein 6.9 g/dl (6.3-8.2) Albumin 4.0 g/dl (3.5-5.0) Lipase 178 U/L (23-300) D-Dimer Quantitative (PE/DVT) 0.40 ug/ml (0-0.50) Urine Color Yellow Urine Clarity Slightly-cloudy Urine pH 6.5 pH (4.8-9.5) Urine Specific [place] 1.015 Urine Protein Negative mg/dL (NEGATIVE) Urine Glucose (UA) Negative mg/dL (NEGATIVE) Urine Ketones Negative mg/dL (NEGATIVE) Urine Blood Negative (NEGATIVE) Urine Nitrite Positive (NEGATIVE) Urine Bilirubin Negative (NEGATIVE) Urine Urobilinogen 0.2 mg/dL (0.2-1.9) Urine Leukocyte Esterase Moderate (NEGATIVE) Urine RBC None /HPF (0-2/HPF) Urine WBC 20-25 /HPF (0-5/HPF) Urine Squamous Epithelial Cells Few /LPF (</=FEW) Urine Bacteria Many /HPF (NONE-FEW) Urine Mucus None /HPF (NONE-FEW) Coagulation Test 02/20/19 12:32 D-Dimer Quantitative (PE/DVT) 0.40 ug/ml Urinalysis Test 02/20/19 13:15 Urine Color Yellow Urine Clarity Slightly-cloudy Urine pH 6.5 pH (4.8-9.5) Urine Specific [place] 1.015 Urine Protein Negative mg/dL (NEGATIVE) Urine Glucose (UA) Negative mg/dL (NEGATIVE) Urine Ketones Negative mg/dL (NEGATIVE) Urine Blood Negative (NEGATIVE) Urine Nitrite Positive (NEGATIVE) Urine Bilirubin Negative (NEGATIVE) Urine Urobilinogen 0.2 mg/dL (0.2-1.9) Urine Leukocyte Esterase Moderate (NEGATIVE) Urine RBC None /HPF (0-2/HPF) Urine WBC 20-25 /HPF (0-5/HPF) Urine Squamous Epithelial Cells Few /LPF (</=FEW) Urine Bacteria Many /HPF (NONE-FEW) Urine Mucus None /HPF (NONE-FEW) ED Course/Re-evaluation ED Course 84-year-old female comes into the emergency department for slightly worsening shortness of breath patient's history of COPD satting 92% on room air patient's denying any chest pain this time but that she said she had a little bit of chest discomfort EKG is normal. Cardiac markers troponins d-dimer also negative patient describes some fatigue she does currently have urinary tract infection elevated white count with a left shift. Treating her for that do not that is any cardiac etiology since she's has been fatigued and not sleeping very well patient be diagnosed with urinary tract infection Decision to Disposition Date: Feb 20, 2019 Decision to Disposition Time: 14:14 Depart Departure Latest Vital Signs Vital Signs Date Time Temp Pulse Resp B/P (MAP) Pulse Ox O2 Delivery O2 Flow Rate FiO2 02/20/19 12:41 67 16 94 02/20/19 12:29 154/78 (103) 02/20/19 12:16 3.0 02/20/19 11:57 98.5 Nasal Cannula Impression: Primary Impression: Urinary tract infection Condition: Improved Disposition: HOME OR SELF-CARE Referrals: SAVANNAH GOOD MD (PCP) 5 Days New Scripts Sulfamethoxazole/Trimet 800-160 Mg Tab (BACTRIM DS TABLET) 1 Each Tablet 1 TAB PO Q12H, #14 MG 0 Refills TAKE ONE TABLET BY MOUTH EVERY TWELVE HOURS Prov: NESTOR AGARWAL MD 02/20/19 Patient Instructions: Urinary Tract Infection in Women (DC) NESTOR AGARWAL MD Feb 20, 2019 12:12
[2019-02-20] MEDS ORDERED: ASPIRIN 81 MG CHEW ONE ×2 (12:14)
--- NOTE | 2019-02-20 12:15 | EKG ---
FACILITY: [facility] - [place] PATIENT NAME: AURORA MORGAN : [id number] MR: [id number] V: [id number] EXAM DATE: ORDERING PHYSICIAN: NESTOR AGARWAL TECHNOLOGIST: DANIELA Test Reason : CP, SOB Blood Pressure : / mmHG Vent. Rate : 073 BPM Atrial Rate : 073 BPM P-R Int : 166 ms QRS Dur : 076 ms QT Int : 386 ms P-R-T Axes : 074 083 073 degrees QTc Int : 425 ms Normal sinus rhythm Normal ECG When compared with ECG of 26-JAN-2019 19:59, Sinus rhythm has replaced Atrial fibrillation Vent. rate has decreased BY [address] no longer depressed in Lateral leads Confirmed by Gerardo Gold ([id number]) on 02/20/2019 3:12:23 PM Referred By: ANY Confirmed By:Gerardo Faria
[2019-02-20 12:16] LABS: PLATELET COUNT, AUTOMATED 567 K/uL (150-450)
--- NOTE | 2019-02-20 12:39 | RADIOLOGY IMAGING REPORT ---
FACILITY: [facility] PATIENT NAME: Arline Ramirez : 1935 MR: [id number] V: [id number] EXAM DATE: ORDERING PHYSICIAN: NESTOR AGARWAL TECHNOLOGIST: Location[place] [facility] [place] Patient: Arline Ramirez : 1935 Visit/Account:[id number] Date of Sevice: 02/20/2019 2 VIEWS CHEST INDICATION: cp COMPARISON: January 26, 2019. FINDINGS: Heart size within normal limits. There is no focal infiltrate or lobar consolidation. Hyperexpansion of lungs with chronic interstit ial changes. There is no pneumothorax or pleural effusion. Degenerative changes within the shoulders. IMPRESSION: 1. No acute cardiopulmonary process. Report Dictated By: Victor Manuel Potter MD at 02/20/2019 12:33 PM Report E-Signed By: Victor Manuel Potter MD at 02/20/2019 12:34 PM WSN:[email or web address]
[2019-02-20] MEDS ORDERED: SULF-198 PO (14:15)
[2019-02-20 14:18] VITALS: BP 167/85
== END 2019-02-20 14:28 | disposition home or self-care (01) ==
LOC: ER 12:12
DX: N39.0 Urinary tract infection, site not specified (principal)
CPT/HCPCS: 71046; 81001; 83690; 83880; 84484; 85025; 85379; 93005; 99284; A9270; 82040; 82247; 82310; 82374; 82435; 82565; 82947; 84075; 84132; 84155; 84295; 84450; 84460; 84520

== ENCOUNTER → 2019-02-20 | Outpatient (CLI) | payer MEDICARE, OTHER ==
[2019-01-27 09:06] VITALS: BMI 26.3
[~2019-02-20] MED LIST changes: +SULF-198 PO
== END ==
LOC: AMB 11:33
PROVIDERS: ATTEND Nurse Practitioner
DX: R42 Dizziness and giddiness (principal); R06.02 Shortness of breath
CPT/HCPCS: A0425; A0427

== ENCOUNTER 2019-03-14 07:15 | Emergency (ER) | payer MEDICARE, OTHER ==
[2019-01-27 09:06] VITALS: Wt 62.6 kg
[~2019-03-14 07:15] MED LIST changes: +SULF-198 PO
--- NOTE | 2019-03-14 07:20 | ER Report ---
History and Physical Time Seen By MD: 07:20 HPI/ROS CHIEF COMPLAINT: Hypertension, general malaise HISTORY OF PRESENT ILLNESS: Patient is an 84-year-old female here with complaints of hypertension, general malaise. Patient was previously on lis inopril, amlodipine however she was transitioned to metoprolol, diltiazem due to acute onset of atrial fibrillation. Patient reports that over the past several days to several weeks she has been having general malaise. She does monitor her blood pressure at home frequently and noticed that her blood pressure was mildly elevated. Patient denies recent trauma, fevers, chills, recent illness. Patient 's blood pressure was 176/83, she was afebrile, otherwise hemodynamically stable at time of evaluation. REVIEW OF SYSTEMS: Constitutional: No fever, no chills, + general malaise Eyes: No discharge. ENT: No sore throat. Cardiovascular: No chest pain, no palpitations. Respiratory: No cough, no shortness of breath. Gastrointestinal: No abdominal pain, no vomiting. Genitourinary: No hematuria. Musculoskeletal: No back pain. Skin: No rashes. Neurological: + headache. Allergies: Coded Allergies: Egg Derived (Verified Allergy, Intermediate, HIVES, 03/14/19) Tetanus Vaccines and Toxoid (Verified Allergy, Intermediate, ANAPHYLAXIS, 03/14/19) Influenza Virus Vaccines (Verified Allergy, Unknown, 03/14/19) Home Meds Active Scripts Rivaroxaban (XARELTO 10 MG TAB (OR EQUIV)) 10 Mg Tablet, 15 MG PO QPM for 30 Days, #45 TAB Prov:SHANE ALVAREZ DO 01/28/19 Metoprolol Succinate (METOPROLOL SUCCINATE) 25 Mg Tab.er.24h, 25 MG PO QDAY for 30 Days, #30 TAB.SR.24H Prov:SHANE ALVAREZ DO 01/28/19 Diltiazem Hcl (DILTIAZEM 24HR CD) 120 Mg Cap.er.24h, 240 MG PO QDAY for 30 Days, #60 CAP.SR.24H Prov:SHANE ALVAREZ DO 01/28/19 Pantoprazole Sodium (PANTOPRAZOLE SODIUM) 40 Mg Tablet.dr, 1 TAB PO PRN PRN for heartburn, #90 TAB.SR 4 Refills Prov:SAVANNAH GOOD MD 3/16/17 Reported Medications Sodium Chloride (CAROLINE-128) 15 Ml Drops, 1 GTT OP BID 01/30/16 Vit C/E/Zn/Coppr/Lutein/Zeaxan (Preservision Areds 2 Softgel) 1 Each Capsule, 2 CAP PO QDAY 01/30/16 Glucosa Stiles 2KCL/Chondroitin Stiles (GLUCOSAMINE & CHONDROITIN CAP) 1 Each Capsule, 1 CAP PO BID 01/30/16 Cholecalciferol (Vitamin D3) (VITAMIN D) 2,000 Unit Tablet, 1 CAP PO QDAY 11/11/14 Discontinued Scripts Sulfamethoxazole/Trimet 800-160 Mg Tab (BACTRIM DS TABLET) 1 Each Tablet, 1 TAB PO Q12H, #14 MG 0 Refills TAKE ONE TABLET BY MOUTH EVERY TWELVE HOURS Prov:NESTOR AGARWAL MD 02/20/19 Hx Smoking: Yes (LONG TIME [id number] 10-12 YEARS AGO) Smoking Status: Former Smoker Exposure to Second Hand Smoke?: Yes Hx Substance Use Disorder: No Hx Alcohol Use: No Constitutional Vital Sign - Last 24 Hours 03/14/19 03/14/19 07:26 07:30 Temp 98.0 Pulse 79 Resp 16 B/P (MAP) 176/83 Pulse Ox 96 O2 Delivery Nasal Cannula O2 Flow Rate 3.0 Physical Exam General Appearance: The patient is alert, has no immediate need for airway protection and no signs of toxicity. No acute distress Eyes: Pupils equal and round no pallor or injection. ENT, Mouth: Mucous membranes are moist. Respiratory: There are no retractions, lungs are clear to auscultation. Cardiovascular: Regular rate and rhythm. Gastrointestinal: Abdomen is soft and non tender, no masses, bowel sounds normal. Neurological: No focal neurological deficits on exam Skin: Warm and dry, no rashes. Musculoskeletal: Neck is supple non tender. Extremities are nontender, nonswollen and have full range of motion. DIFFERENTIAL DIAGNOSIS: After history and physical exam differential diagnosis was considered for hypertensive urgency, hypertensive emergency, end organ damage, dehydration, electrolyte abnormality Medical Decision Making Data Points Result Diagram: 03/14/19 0800 03/14/19 0800 Laboratory Hematology Test 03/14/19 08:00 Red Blood Count 4.08 M/uL (4.17-5.56) Mean Corpuscular Volume 91.2 fL (80.0-96.0) Mean Corpuscular Hemoglobin 30.7 pg (26.0-33.0) Mean Corpuscular Hemoglobin Concent 33.7 g/dL (32.0-36.0) Red Cell Distribution Width 15.0 % (11.5-14.5) Mean Platelet Volume 7.6 fL (7.2-11.1) Neutrophils (%) (Auto) 75.1 % (39.4-72.5) Lymphocytes (%) (Auto) 11.1 % (17.6-49.6) Monocytes (%) (Auto) 10.4 % (4.1-12.4) Eosinophils (%) (Auto) 2.2 % (0.4-6.7) Basophils (%) (Auto) 1.2 % (0.3-1.4) Nucleated RBC Relative Count (auto) 0.0 /100WBC Neutrophils # (Auto) 9.0 K/uL (2.0-7.4) Lymphocytes # (Auto) 1.3 K/uL (1.3-3.6) Monocytes # (Auto) 1.2 K/uL (0.3-1.0) Eosinophils # (Auto) 0.3 K/uL (0.0-0.5) Basophils # (Auto) 0.1 K/uL (0.0-0.1) Nucleated RBC Absolute Count (auto) 0.00 K/uL Prothrombin Time 21.2 seconds (12.0-14.4) Prothromb Time International Ratio 1.80 Activated Partial Thromboplast Time 39 seconds (23-35) Sodium Level 134 mmol/L (137-145) Potassium Level 4.1 mmol/L (3.5-5.0) Chloride Level 99 mmol/L (98-107) Carbon Dioxide Level 31 mmol/L (22-31) Blood Urea Nitrogen 11 mg/dl (7-18) Creatinine 0.80 mg/dl (0.52-1.04) Glomerular Filtration Rate Calc > 60.0 Random Glucose 95 mg/dl (75-110) Calcium Level 9.3 mg/dl (8.4-10.2) Total Bilirubin 0.4 mg/dl (0.2-1.3) Aspartate Amino Transf (AST/SGOT) 27 U/L (0-35) Alanine Aminotransferase (ALT/SGPT) 20 U/L (0-56) Alkaline Phosphatase 71 U/L (0-126) Troponin I < 0.012 ng/ml C-Reactive Protein 0.6 mg/dl (<1.0) B-Type Natriuretic Peptide 112 pg/ml (0-100) Total Protein 6.4 g/dl (6.3-8.2) Albumin 3.6 g/dl (3.5-5.0) Chemistry Test 03/14/19 08:00 White Blood Count 12.0 k/uL (4.5-11.0) Red Blood Count 4.08 M/uL (4.17-5.56) Hemoglobin 12.5 g/dL (12.0-16.0) Hematocrit 37.2 % (34.0-47.0) Mean Corpuscular Volume 91.2 fL (80.0-96.0) Mean Corpuscular Hemoglobin 30.7 pg (26.0-33.0) Mean Corpuscular Hemoglobin Concent 33.7 g/dL (32.0-36.0) Red Cell Distribution Width 15.0 % (11.5-14.5) Platelet Count 477 K/uL (150-450) Mean Platelet Volume 7.6 fL (7.2-11.1) Neutrophils (%) (Auto) 75.1 % (39.4-72.5) Lymphocytes (%) (Auto) 11.1 % (17.6-49.6) Monocytes (%) (Auto) 10.4 % (4.1-12.4) Eosinophils (%) (Auto) 2.2 % (0.4-6.7) Basophils (%) (Auto) 1.2 % (0.3-1.4) Nucleated RBC Relative Count (auto) 0.0 /100WBC Neutrophils # (Auto) 9.0 K/uL (2.0-7.4) Lymphocytes # (Auto) 1.3 K/uL (1.3-3.6) Monocytes # (Auto) 1.2 K/uL (0.3-1.0) Eosinophils # (Auto) 0.3 K/uL (0.0-0.5) Basophils # (Auto) 0.1 K/uL (0.0-0.1) Nucleated RBC Absolute Count (auto) 0.00 K/uL Prothrombin Time 21.2 seconds (12.0-14.4) Prothromb Time International Ratio 1.80 Activated Partial Thromboplast Time 39 seconds (23-35) Glomerular Filtration Rate Calc > 60.0 Calcium Level 9.3 mg/dl (8.4-10.2) Total Bilirubin 0.4 mg/dl (0.2-1.3) Aspartate Amino Transf (AST/SGOT) 27 U/L (0-35) Alanine Aminotransferase (ALT/SGPT) 20 U/L (0-56) Alkaline Phosphatase 71 U/L (0-126) Troponin I < 0.012 ng/ml C-Reactive Protein 0.6 mg/dl (<1.0) B-Type Natriuretic Peptide 112 pg/ml (0-100) Total Protein 6.4 g/dl (6.3-8.2) Albumin 3.6 g/dl (3.5-5.0) Coagulation Test 03/14/19 08:00 Prothrombin Time 21.2 seconds Prothromb Time International Ratio 1.80 Activated Partial Thromboplast Time 39 seconds EKG/Imaging EKG Interpretation PATIENT NAME: AURORA MORGAN DOB: [id number] MR: [id number] V: [id number] EXAM DATE: ORDERING PHYSICIAN: JOHN LOZADA TECHNOLOGIST: JANET Gibbons Reason : HYPERTENSION Blood Pressure : / mmHG Vent. Rate : 072 BPM Atrial Rate : 072 BPM P-R Int : 158 ms QRS Dur : 082 ms QT Int : 396 ms P-R-T Axes : 089 078 072 degrees QTc Int : 433 ms Normal sinus rhythm Normal ECG When compared with ECG of 20-FEB-2019 12:04, No significant change was found Referred By: [facility] Confirmed By: Imaging PATIENT NAME: Aurora Morgan : 1935 MR: [id number] V: [id number] EXAM DATE: ORDERING PHYSICIAN: JOHN LOZADA TECHNOLOGIST: Location: [facility] - [place] Patient: Aurora Morgan : 1935 Visit/Account:[id number] Date of Sevice: 03/14/2019 Study: Frontal and lateral views of the chest Indication: Chest pain Comparison study: February 20, 2019 Findings: PA and lateral views of the chest demonstrate no evidence of acute infiltrate. There is no evidence of pleural effusion. There is no evidence of pneumothorax. The mediastinal, cardiac, and diaphragmatic contours are unremarkable. The visualized bony structures are unremarkable. IMPRESSION: No acute cardiopulmonary abnormality identified. ED Course/Re-evaluation ED Course Patient is an 84-year-old female here with complaints of hypertension. Previously, the patient had an episode of atrial fibrillation and was switched off of her lisinopril, amlodipine to diltiazem, metoprolol. Patient is hypertensive at time of evaluation. Patient did complain of transient shortness of breath, chest x-ray was unremarkable. Labs showed no evidence of end organ damage. Patient was recommended to follow-up with her PCP in order to discuss possible need for additional antihypertensives. Return precautions were provided. Urinalysis was collected and was pending at time of discharge. Patient was advised that should be contacted if urinalysis was consistent with infectious etiology. Close PCP follow-up recommended. Decision to Disposition Date: March 14, 2019 Decision to Disposition Time: 09:11 Depart Departure Latest Vital Signs Vital Signs Date Time Temp Pulse Resp B/P (MAP) Pulse Ox O2 Delivery O2 Flow Rate FiO2 03/14/19 07:30 3.0 03/14/19 07:26 98.0 79 16 176/83 96 Nasal Cannula Impression: Primary Impression: Essential hypertension Condition: Improved Disposition: HOME OR SELF-CARE Referrals: SAVANNAH GOOD MD (PCP) Patient Instructions: Hypertension (ED) Additional Instructions: Please drink plenty of water. You do not have current signs of end organ damage. Please follow-up with your primary care provider in the next 24-48 hours in orde r to discuss possible additional medications for blood pressure management. Please return immediately if you develop chest pain, shortness breath, nausea, vomiting, fevers or chills, decreased urine output, headaches or blurry vision. JOHN LOZADA DO March 14, 2019 07:20
[2019-03-14 08:12] LABS: PLATELET COUNT, AUTOMATED 477 K/uL (150-450)
[2019-03-14 08:16] LABS: INR 1.8
--- NOTE | 2019-03-14 08:18 | EKG ---
FACILITY: [facility] PATIENT NAME: AURORA MORGAN : [id number] MR: [id number] V: [id number] EXAM DATE: ORDERING PHYSICIAN: JOHN LOZADA TECHNOLOGIST: JANET Gibbons Reason : HYPERTENSION Blood Pressure : / mmHG Vent. Rate : 072 BPM Atrial Rate : 072 BPM P-R Int : 158 ms QRS Dur : 082 ms QT Int : 396 ms P-R-T Axes : 089 078 072 degrees QTc Int : 433 ms Normal sinus rhythm Normal ECG When compared with ECG of 20-FEB-2019 12:04, No significant change was found Confirmed by Gerardo Gold ([id number]) on 03/14/2019 6:17:58 PM Referred By: ALVINA Confirmed By:Gerardo Faria
--- NOTE | 2019-03-14 08:51 | RADIOLOGY IMAGING REPORT ---
FACILITY: [facility] PATIENT NAME: Arline Ramirez : 1935 MR: [id number] V: [id number] EXAM DATE: ORDERING PHYSICIAN: JOHN LOZADA TECHNOLOGIST: Location: [facility] Patient: Arline Ramirez : 1935 Visit/Account:[id number] Date of Sevice: 03/14/2019 Study: Frontal and lateral views of the chest Indication: Chest pain Comparison study: February 20, 2019 Findings: PA and lateral views of the chest demonstrate no evidence of acute infiltrate. There is no evidence of pleural effusion. There is no evidence of pneumothorax. The mediastinal, cardiac, and diaphragmatic contours are unremarkable. The visualized bony structures are unremarkable. IMPRESSION: No acute cardiopulmonary abnormality identified. Report Dictated By: Shashank Anne at 03/14/2019 8:45 AM Report E-Signed By: Shashank Anne at 03/14/2019 8:47 AM WSN:[id number]
[2019-03-14 09:43] VITALS: BP 146/66
== END 2019-03-14 09:56 | disposition home or self-care (01) ==
LOC: ER 07:28
DX: I10 Essential (primary) hypertension (principal); R06.02 Shortness of breath
CPT/HCPCS: 71046; 81001; 82040; 82247; 82310; 82374; 82435; 82565; 82947; 83880; 84075; 84132; 84155; 84295; 84450; 84460; 84484; 84520; 85025; 85610; 85730; 86140; 93005; 99284

== ENCOUNTER 2019-03-24 08:02 | Emergency (ER) | payer MEDICARE, OTHER ==
[2019-01-27 09:06] VITALS: Wt 62.6 kg
--- NOTE | 2019-03-24 08:06 | ER Report ---
History and Physical Time Seen By MD: 08:05 HPI/ROS CHIEF COMPLAINT: Chest pressure, shortness breath HISTORY OF PRESENT ILLNESS: Patient is an 84-year-old female here with complaints of chest pressure, increasing dyspnea, hypertension, rapid heart rate in the setting of atrial fibrillation on Xarelto. Patient reportedly is on diltiazem, started back on Lisinopril one week prior. Patient reportedly had an echo with ejection fraction 55-60% back in January 2019. Denies prior history of myocardial infarction. Patient did have recent admission for new onset A. fib RVR back in January at which time she was started on her diltiazem, Xarelto. Den ies chest pain, fevers, chills, abdominal pain, nausea, vomiting. REVIEW OF SYSTEMS: Constitutional: No fever, no chills. Eyes: No discharge. ENT: No sore throat. Cardiovascular: No chest pain, + palpitations, + chest pressure Respiratory: No cough, + shortness of breath. Gastrointestinal: No abdominal pain, no vomiting. Genitourinary: No hematuria. Musculoskeletal: No back pain. Skin: No rashes. Neurological: No headache. Allergies: Coded Allergies: Egg Derived (Verified Allergy, Intermediate, HIVES, 03/24/19) Tetanus Vaccines and Toxoid (Verified Allergy, Intermediate, ANAPHYLAXIS, 03/24/19) Influenza Virus Vaccines (Verified Allergy, Unknown, 03/24/19) Home Meds Active Scripts Rivaroxaban (XARELTO 10 MG TAB (OR EQUIV)) 10 Mg Tablet, 15 MG PO QPM for 30 Days, #45 TAB Prov:SHANE ALVAREZ DO 01/28/19 Metoprolol Succinate (METOPROLOL SUCCINATE) 25 Mg Tab.er.24h, 25 MG PO QDAY for 30 Days, #30 TAB.SR.24H Prov:SHANE ALVAREZ DO 01/28/19 Diltiazem Hcl (DILTIAZEM 24HR CD) 120 Mg Cap.er.24h, 240 MG PO QDAY for 30 Days, #60 CAP.SR.24H Prov:SHANE ALVAREZ DO 01/28/19 Pantoprazole Sodium (PANTOPRAZOLE SODIUM) 40 Mg Tablet.dr, 1 TAB PO PRN PRN for heartburn, #90 TAB.SR 4 Refills Prov:SAVANNAH GOOD MD 01/17/17 Reported Medications Lisinopril (LISINOPRIL) 5 Mg Tablet, 5 MG PO QDAY, TAB 03/24/19 Sodium Chloride (CAROLINE-128) 15 Ml Drops, 1 GTT OP BID 01/30/16 Vit C/E/Zn/Coppr/Lutein/Zeaxan (Preservision Areds 2 Softgel) 1 Each Capsule, 2 CAP PO QDAY 01/30/16 Glucosa Stiles 2KCL/Chondroitin Stiles (GLUCOSAMINE & CHONDROITIN CAP) 1 Each Capsule, 1 CAP PO BID 01/30/16 Cholecalciferol (Vitamin D3) (VITAMIN D) 2,000 Unit Tablet, 1 CAP PO QDAY 11/11/14 Hx Smoking: Yes (LONG TIME [id number] 10-12 YEARS AGO) Smoking Status: Former Smoker Exposure to Second Hand Smoke?: Yes Hx Substance Use Disorder: No Hx Alcohol Use: No Constitutional Vital Sign - Last 24 Hours 03/24/19 03/24/19 03/24/19 03/24/19 08:05 08:15 08:19 08:27 Temp 97.7 Pulse 134 124 Resp 24 23 B/P (MAP) 138/100 94/70 (78) Pulse Ox 92 96 O2 Flow Rate 3.0 03/24/19 03/24/19 03/24/19 03/24/19 08:30 08:45 09:00 09:15 Pulse 116 96 96 83 Resp 14 14 18 30 B/P (MAP) 117/89 (98) 128/79 (95) Pulse Ox 97 96 97 92 03/24/19 03/24/19 03/24/19 09:30 09:45 10:00 Pulse 72 74 75 Resp 13 15 15 B/P (MAP) 116/66 (83) 132/71 (91) Pulse Ox 97 96 95 Physical Exam General Appearance: The patient is alert, has no immediate need for airway protection and no signs of toxicity. NAD Eyes: Pupils equal and round no pallor or injection. ENT, Mouth: Mucous membranes are moist. Respiratory: There are no retractions, lungs are clear to auscultation. Cardiovascular: AFIB RVR Gastrointestinal: Abdomen is soft and non tender, no masses, bowel sounds normal. Neurological: AAO, no focal neuro findings Skin: Warm and dry, no rashes. Musculoskeletal: Neck is supple non tender. Extremities are nontender, nonswollen and have full range of motion. DIFFERENTIAL DIAGNOSIS: After history and physical exam differential diagnosis was considered for chest pain including but not limited to myocardial ischemia, pericarditis pulmonary embolus, chest wall pain, pleural inflammation and pulmonary infectious causes. Medical Decision Making Data Points Result Diagram: 03/24/19 0816 03/24/19 0816 Laboratory Hematology Test 03/24/19 08:16 03/24/19 11:00 Red Blood Count 4.44 M/uL (4.17-5.56) Mean Corpuscular Volume 91.2 fL (80.0-96.0) Mean Corpuscular Hemoglobin 29.8 pg (26.0-33.0) Mean Corpuscular Hemoglobin Concent 32.7 g/dL (32.0-36.0) Red Cell Distribution Width 15.7 % (11.5-14.5) Mean Platelet Volume 7.7 fL (7.2-11.1) Neutrophils (%) (Auto) 78.2 % (39.4-72.5) Lymphocytes (%) (Auto) 9.7 % (17.6-49.6) Monocytes (%) (Auto) 10.2 % (4.1-12.4) Eosinophils (%) (Auto) 1.1 % (0.4-6.7) Basophils (%) (Auto) 0.8 % (0.3-1.4) Nucleated RBC Relative Count (auto) 0.0 /100WBC Neutrophils # (Auto) 11.7 K/uL (2.0-7.4) Lymphocytes # (Auto) 1.5 K/uL (1.3-3.6) Monocytes # (Auto) 1.5 K/uL (0.3-1.0) Eosinophils # (Auto) 0.2 K/uL (0.0-0.5) Basophils # (Auto) 0.1 K/uL (0.0-0.1) Nucleated RBC Absolute Count (auto) 0.00 K/uL Peripheral Blood Smear Yes Y/N Prothrombin Time 19.1 seconds (12.0-14.4) Prothromb Time International Ratio 1.59 Activated Partial Thromboplast Time 36 seconds (23-35) Sodium Level 136 mmol/L (137-145) Potassium Level 3.9 mmol/L (3.5-5.0) Chloride Level 99 mmol/L (98-107) Carbon Dioxide Level 30 mmol/L (22-31) Blood Urea Nitrogen 11 mg/dl (7-18) Creatinine 0.90 mg/dl (0.52-1.04) Glomerular Filtration Rate Calc 59.5 Random Glucose 113 mg/dl (75-110) Calcium Level 9.8 mg/dl (8.4-10.2) Total Bilirubin 0.3 mg/dl (0.2-1.3) Aspartate Amino Transf (AST/SGOT) 32 U/L (0-35) Alanine Aminotransferase (ALT/SGPT) 22 U/L (0-56) Alkaline Phosphatase 84 U/L (0-126) Total Protein 7.0 g/dl (6.3-8.2) Albumin 4.0 g/dl (3.5-5.0) Troponin I 0.133 ng/ml Chemistry Test 03/24/19 08:16 03/24/19 11:00 White Blood Count 14.9 k/uL (4.5-11.0) Red Blood Count 4.44 M/uL (4.17-5.56) Hemoglobin 13.2 g/dL (12.0-16.0) Hematocrit 40.5 % (34.0-47.0) Mean Corpuscular Volume 91.2 fL (80.0-96.0) Mean Corpuscular Hemoglobin 29.8 pg (26.0-33.0) Mean Corpuscular Hemoglobin Concent 32.7 g/dL (32.0-36.0) Red Cell Distribution Width 15.7 % (11.5-14.5) Platelet Count 605 K/uL (150-450) Mean Platelet Volume 7.7 fL (7.2-11.1) Neutrophils (%) (Auto) 78.2 % (39.4-72.5) Lymphocytes (%) (Auto) 9.7 % (17.6-49.6) Monocytes (%) (Auto) 10.2 % (4.1-12.4) Eosinophils (%) (Auto) 1.1 % (0.4-6.7) Basophils (%) (Auto) 0.8 % (0.3-1.4) Nucleated RBC Relative Count (auto) 0.0 /100WBC Neutrophils # (Auto) 11.7 K/uL (2.0-7.4) Lymphocytes # (Auto) 1.5 K/uL (1.3-3.6) Monocytes # (Auto) 1.5 K/uL (0.3-1.0) Eosinophils # (Auto) 0.2 K/uL (0.0-0.5) Basophils # (Auto) 0.1 K/uL (0.0-0.1) Nucleated RBC Absolute Count (auto) 0.00 K/uL Peripheral Blood Smear Yes Y/N Prothrombin Time 19.1 seconds (12.0-14.4) Prothromb Time International Ratio 1.59 Activated Partial Thromboplast Time 36 seconds (23-35) Glomerular Filtration Rate Calc 59.5 Calcium Level 9.8 mg/dl (8.4-10.2) Total Bilirubin 0.3 mg/dl (0.2-1.3) Aspartate Amino Transf (AST/SGOT) 32 U/L (0-35) Alanine Aminotransferase (ALT/SGPT) 22 U/L (0-56) Alkaline Phosphatase 84 U/L (0-126) Total Protein 7.0 g/dl (6.3-8.2) Albumin 4.0 g/dl (3.5-5.0) Troponin I 0.133 ng/ml Coagulation Test 03/24/19 08:16 Prothrombin Time 19.1 seconds Prothromb Time International Ratio 1.59 Activated Partial Thromboplast Time 36 seconds EKG/Imaging EKG Interpretation FACILITY: [facility] PATIENT NAME: AURORA MORGAN : [id number] MR: [id number] V: [id number] EXAM DATE: ORDERING PHYSICIAN: JOHN LOZADA TECHNOLOGIST: Test Reason : Blood Pressure : / mmHG Vent. Rate : 128 BPM Atrial Rate : 122 BPM P-R Int : 000 ms QRS Dur : 076 ms QT Int : 278 ms P-R-T Axes : 000 084 104 degrees QTc Int : 405 ms Atrial fibrillation Nonspecific ST and T wave abnormality , probably digitalis effect Abnormal ECG When compared with ECG of 14-MAR-2019 07:44, Atrial fibrillation has replaced Sinus rhythm Vent. rate has increased BY [address] no longer elevated in Inferior leads Nonspecific T wave abnormality now evident in Inferior leads Nonspecific T wave abnormality now evident in Lateral leads Referred By: Confirmed By: PATIENT NAME: AURORA MORGAN : [id number] MR: [id number] V: [id number] EXAM DATE: ORDERING PHYSICIAN: JOHN LOZADA TECHNOLOGIST: JANET Gibbons Reason : REPEAT Blood Pressure : / mmHG Vent. Rate : 072 BPM Atrial Rate : 072 BPM P-R Int : 170 ms QRS Dur : 084 ms QT Int : 390 ms P-R-T Axes : 087 082 082 degrees QTc Int : 427 ms Normal sinus rhythm Normal ECG When compared with ECG of 24-MAR-2019 08:08, Sinus rhythm has replaced Atrial fibrillation Vent. rate has decreased BY [address] no longer depressed in Lateral leads Nonspecific T wave abnormality no longer evident in Inferior leads Nonspecific T wave abnormality, improved in Lateral leads Referred By: KIERRA Confirmed By: Imaging PATIENT NAME: Aurora Morgan : 1935 MR: [id number] V: [id number] EXAM DATE: [id number] ORDERING PHYSICIAN: JOHN LOZADA TECHNOLOGIST: Location: [facility] Patient: Aurora Morgan : 1935 Visit/Account:[id number] Date of Sevice: 03/24/2019 Exam type: CHEST SINGLE AP History: Chest Pain Comparison: March 14, 2019. Findings: The lungs are free of acute effusions, infiltrates or edema. There is mild prominence of the central pulmonary arteries. The cardiac silhouette is normal in size. There is a moderate size hiatal hernia IMPRESSION: 1. No acute cardiac pulmonary process is seen Central pulmonary arteries are mildly prominent which can be seen with pulmonary arterial hypertension Moderate hiatal hernia ED Course/Re-evaluation ED Course Patient is an 84-year-old female here with complaints of chest pressure, shortness breath, A. fib RVR which she is currently being treated with diltiazem, Xarelto since January at which time patient was admitted and was diagnosed with atrial fibrillation. Patient does report increasing fatigue, and increased shortness breath, palpitations since yesterday. Patient was given 10 mg of IV diltiazem which converted the patient to normal sinus rhythm. Initial l abs were remarkable for an initial troponin of 0.088 which on 3 [place] to repeat was 0.133, mild leukocytosis of 14,000. Patient denies prior history of CAD, cardiac catheterizations. She did have a recent echo in January which showed an intact EF 55-60%. I discussed the patient with Dr. Mccoy who is a hospitalist at [facility] who accepted the patient for A. fib/and STEMI. Patient was started on heparin with bolus and infusion. Patient was stable at time of transfer. Decision to Disposition Date: March 24, 2019 Decision to Disposition Time: 12:28 Depart Departure Latest Vital Signs Vital Signs Date Time Temp Pulse Resp B/P (MAP) Pulse Ox O2 Delivery O2 Flow Rate FiO2 03/24/19 10:00 75 15 132/71 (91) 95 03/24/19 08:19 3.0 03/24/19 08:05 97.7 Impression: Primary Impression: Afib Additional Impression: NSTEMI (non-ST elevated myocardial infarction) Condition: Improved Disposition: [facility]FER TO [facility] ([place]) Referrals: CATARINO ROSADO DO (PCP) Problem Qualifiers JOHN LOZADA DO March 24, 2019 08:06
[2019-03-24] MEDS ORDERED: NS(*) 0.9% 500 ML BAG 500 ML IV ONE (08:11)
[2019-03-24] MEDS ORDERED: LISI5TAB25 PO (08:13)
--- NOTE | 2019-03-24 08:17 | EKG ---
FACILITY: [facility] PATIENT NAME: AURORA MORGAN : [id number] MR: [id number] V: [id number] EXAM DATE: ORDERING PHYSICIAN: JOHN LOZADA TECHNOLOGIST: Test Reason : Blood Pressure : / mmHG Vent. Rate : 128 BPM Atrial Rate : 122 BPM P-R Int : 000 ms QRS Dur : 076 ms QT Int : 278 ms P-R-T Axes : 000 084 104 degrees QTc Int : 405 ms Atrial fibrillation Nonspecific ST and T wave abnormality Abnormal ECG Artifact in several leads - repeat if needed Confirmed by ROMEO WILDER ([id number]) on 03/24/2019 2:47:23 PM Referred By: Confirmed By:ROMEO WILDER
[2019-03-24 08:28] LABS: PLATELET COUNT, AUTOMATED 605 K/uL (150-450)
[2019-03-24] MEDS ORDERED: DILTIAZEM 5 MG/ML 5ML IVPUSH IVP ONE (08:35)
[2019-03-24 08:37] LABS: INR 1.59
--- NOTE | 2019-03-24 08:53 | RADIOLOGY IMAGING REPORT ---
FACILITY: [facility] [place] PATIENT NAME: Arline Ramirez : 1935 MR: [id number] V: [id number] EXAM DATE: ORDERING PHYSICIAN: JOHN LOZADA TECHNOLOGIST: Location: [facility] Patient: Arline Ramirez : 1935 Visit/Account:[id number] Date of Sevice: 03/24/2019 Exam type: CHEST SINGLE AP History: Chest Pain Comparison: March 14, 2019. Findings: The lungs are free of acute effusions, infiltrates or edema. There is mild prominence of the central pulmonary arteries. The cardiac silhouette is normal in size. There is a moderate size hiatal talat ia IMPRESSION: 1. No acute cardiac pulmonary process is seen Central pulmonary arteries are mildly prominent which can be seen with pulmonary arterial hypertensio n Moderate hiatal hernia Report Dictated By: Amalia Mccauley MD at 03/24/2019 8:48 AM Report E-Signed By: Amalia Mccauley MD at 03/24/2019 8:50 AM [id number]
--- NOTE | 2019-03-24 12:08 | EKG ---
FACILITY: [facility] PATIENT NAME: AURORA MORGAN : [id number] MR: [id number] V: [id number] EXAM DATE: ORDERING PHYSICIAN: JOHN LOZADA TECHNOLOGIST: JANET Gibbons Reason : REPEAT Blood Pressure : / mmHG Vent. Rate : 072 BPM Atrial Rate : 072 BPM P-R Int : 170 ms QRS Dur : 084 ms QT Int : 390 ms P-R-T Axes : 087 082 082 degrees QTc Int : 427 ms Sinus rhythm Probable left atrial enlargement No acute appearing ST-T findings Confirmed by ROMEO WILDER ([id number]) on 03/24/2019 2:53:57 PM Referred By: KIERRA Confirmed By:ROMEO WILDER
[2019-03-24] MEDS ORDERED: HEPARIN SOD/D5W 25000/250 ML 250 ML IV ONE ×2 (12:10→12:25)
[2019-03-24] MEDS ORDERED: HEPARIN (PORC) 5000 UN/ML VIAL IVP ONE (12:10)
[2019-03-24 13:00] VITALS: BP 141/67
== END 2019-03-24 13:08 | disposition short-term general hospital (02) ==
LOC: ER 08:34
DX: I21.4 Non-ST elevation (NSTEMI) myocardial infarction (principal); I48.2 Chronic atrial fibrillation; Z79.01 Long term (current) use of anticoagulants
CPT/HCPCS: 71045; 84484; 85025; 85610; 85730; 93005; 96361; 96365; 96375; 99285; J1644; J3490; J7040; 82040; 82247; 82310; 82374; 82435; 82565; 82947; 84075; 84132; 84155; 84295; 84450; 84460; 84520

== ENCOUNTER → 2019-03-24 | Outpatient (CLI) | payer MEDICARE, OTHER ==
[2019-01-27 09:06] VITALS: BMI 26.3
== END ==
LOC: AMB 12:56
PROVIDERS: ATTEND Nurse Practitioner
DX: I21.4 Non-ST elevation (NSTEMI) myocardial infarction (principal)
CPT/HCPCS: A0425; A0426

== ENCOUNTER 2019-05-14 11:17 | Emergency (ER) | payer MEDICARE, OTHER ==
[2019-01-27 09:06] VITALS: Wt 62.1 kg
--- NOTE | 2019-05-14 11:32 | ER Report ---
History and Physical Time Seen By MD: 11:24 HPI/ROS CHIEF COMPLAINT: A. fib HISTORY OF PRESENT ILLNESS: This is an 84-year-old female presents to emergency department for A. fib. Patient was at cardiac rehabilitation this morning around 8:30 or 9:00, they had her on the greenhouse technician, the therapist there noted that she was in and out of atrial fibrillation, this is a recurrent problem, she states she had some mild lightheadedness when no chest pain or shortness of breath. It was recommended that she follow-up with her primary doctor, she attempted to follow-up with her PCP, they are unavailable subsequently came to the emergency department. She denies chest pain or shortness of breath. No nausea or vomiting. She she states she feels okay but not "100%". No fevers or chills. She also states she was on the exercise machine for about 45 minutes this morning. She is also on Xarelto. REVIEW OF SYSTEMS: Constitutional: No fever, no chills. Eyes: No discharge. ENT: No sore throat. Cardiovascular: As above. Respiratory: No cough, no shortness of breath. Gastrointestinal: No abdominal pain, no vomiting. Genitourinary: No hematuria. Musculoskeletal: No back pain. Skin: No rashes. Neurological: As above. Allergies: Coded Allergies: Egg Derived (Verified Allergy, Intermediate, HIVES, 03/24/19) Tetanus Vaccines and Toxoid (Verified Allergy, Intermediate, ANAPHYLAXIS, 03/24/19) Influenza Virus Vaccines (Verified Allergy, Unknown, 03/24/19) Home Meds Active Scripts Nitrofurantoin Monohyd/M-Cryst (MACROBID 100 MG CAPSULE) 100 Mg Capsule, 100 MG PO BID for 7 Days, #14 CAPSULE 0 Refills Prov:LORETTA GUTIERREZ STUDENT SUPPORT ADVISOR-BC 05/14/19 Rivaroxaban (XARELTO 10 MG TAB (OR EQUIV)) 10 Mg Tablet, 15 MG PO QPM for 30 Days, #45 TAB Prov:SHANE ALVAREZ DO 01/28/19 Metoprolol Succinate (METOPROLOL SUCCINATE) 25 Mg Tab.er.24h, 25 MG PO QDAY for 30 Days, #30 TAB.SR.24H Prov:SHANE ALVAREZ DO 01/28/19 Diltiazem Hcl (DILTIAZEM 24HR CD) 120 Mg Cap.er.24h, 240 MG PO QDAY for 30 Days, #60 CAP.SR.24H Prov:SHANE ALVAREZ DO 01/28/19 Pantoprazole Sodium (PANTOPRAZOLE SODIUM) 40 Mg Tablet.dr, 1 TAB PO PRN PRN for heartburn, #90 TAB.SR 4 Refills Prov:SAVANNAH GOOD MD 01/17/17 Reported Medications Lisinopril (LISINOPRIL) 5 Mg Tablet, 5 MG PO QDAY, TAB 03/24/19 Sodium Chloride (CAROLINE-128) 15 Ml Drops, 1 GTT OP BID 01/30/16 Vit C/E/Zn/Coppr/Lutein/Zeaxan (Preservision Areds 2 Softgel) 1 Each Capsule, 2 CAP PO QDAY 01/30/16 Glucosa Stiles 2KCL/Chondroitin Stiles (GLUCOSAMINE & CHONDROITIN CAP) 1 Each Capsule, 1 CAP PO BID 01/30/16 Cholecalciferol (Vitamin D3) (VITAMIN D) 2,000 Unit Tablet, 1 CAP PO QDAY 11/11/14 Past Medical/Surgical History The patient has a past medical and surgical history of angina, atrial fibrillation, hypertension, COPD, GERD, urinary tract infections, arthritis, macular degeneration, uterine suspension Reviewed Nurses Notes: Yes Hx Smoking: Yes (LONG TIME [id number] 10-12 YEARS AGO) Smoking Status: Former Smoker Exposure to Second Hand Smoke?: Yes Hx Substance Use Disorder: No Hx Alcohol Use: No Constitutional Vital Sign - Last 24 Hours 05/14/19 05/14/19 05/14/19 05/14/19 11:30 11:31 12:00 12:04 Temp 97.5 Pulse 135 135 142 Resp 29 16 23 B/P (MAP) 107/91 (96) Pulse Ox 95 91 92 O2 Delivery Room Air 05/14/19 05/14/19 05/14/19 05/14/19 12:25 12:30 13:00 13:30 Pulse 83 101 87 Resp 6 15 21 B/P (MAP) 100/58 (72) 122/70 (87) 103/77 (86) 117/91 (100) Pulse Ox 96 84 79 Physical Exam General Appearance: The patient is alert, has no immediate need for airway protection and no signs of toxicity. Eyes: Pupils equal and round no pallor or injection. ENT, Mouth: Mucous membranes are moist. Respiratory: There are no retractions, lungs are clear to auscultation. Cardiovascular: Irregular rate and rhythm, no murmurs, clicks or rubs. Gastrointestinal: Abdomen is soft and non tender, no masses, bowel sounds normal. Neurological: Alert and oriented 4. Moving all extremities. Following all commands. No focal neuro deficits. Skin: Warm and dry, no rashes. Musculoskeletal: Neck is supple non tender. Extremities are nontender, nonswollen and have full range of motion. DIFFERENTIAL DIAGNOSIS: After history and physical exam differential diagnosis was considered for urinary tract infection, atrial fibrillation, myocardial infarction, CVA, TIA. Medical Decision Making Data Points Result Diagram: 05/14/19 1135 05/14/19 1135 Laboratory Hematology Test 05/14/19 11:35 White Blood Count 12.8 k/uL (4.5-11.0) H Red Blood Count 3.88 M/uL (4.17-5.56) L Hemoglobin 11.9 g/dL (12.0-16.0) L Hematocrit 36.0 % (34.0-47.0) Mean Corpuscular Volume 92.7 fL (80.0-96.0) Mean Corpuscular Hemoglobin 30.7 pg (26.0-33.0) Mean Corpuscular Hemoglobin Concent 33.1 g/dL (32.0-36.0) Red Cell Distribution Width 15.4 % (11.5-14.5) H Platelet Count 548 K/uL (150-450) H Mean Platelet Volume 7.7 fL (7.2-11.1) Neutrophils (%) (Auto) 71.5 % (39.4-72.5) Lymphocytes (%) (Auto) 13.9 % (17.6-49.6) L Monocytes (%) (Auto) 10.8 % (4.1-12.4) Eosinophils (%) (Auto) 2.5 % (0.4-6.7) Basophils (%) (Auto) 1.3 % (0.3-1.4) Nucleated RBC Relative Count (auto) 0.0 /100WBC Neutrophils # (Auto) 9.2 K/uL (2.0-7.4) H Lymphocytes # (Auto) 1.8 K/uL (1.3-3.6) Monocytes # (Auto) 1.4 K/uL (0.3-1.0) H Eosinophils # (Auto) 0.3 K/uL (0.0-0.5) Basophils # (Auto) 0.2 K/uL (0.0-0.1) H Nucleated RBC Absolute Count (auto) 0.00 K/uL Peripheral Blood Smear Yes Y/N Chemistry Test 05/14/19 11:35 Sodium Level 134 mmol/L (137-145) Potassium Level 4.3 mmol/L (3.5-5.0) Chloride Level 100 mmol/L (98-107) Carbon Dioxide Level 28 mmol/L (22-31) Blood Urea Nitrogen 15 mg/dl (7-18) Creatinine 1.00 mg/dl (0.52-1.04) Glomerular Filtration Rate Calc 52.7 Random Glucose 104 mg/dl (75-110) Calcium Level 9.3 mg/dl (8.4-10.2) Magnesium Level 1.9 mg/dl (1.7-2.2) Total Bilirubin 0.4 mg/dl (0.2-1.3) Aspartate Amino Transf (AST/SGOT) 37 U/L (0-35) Alanine Aminotransferase (ALT/SGPT) 40 U/L (0-56) Alkaline Phosphatase 83 U/L (0-126) Troponin I < 0.012 ng/ml Total Protein 6.9 g/dl (6.3-8.2) Albumin 3.9 g/dl (3.5-5.0) Urinalysis Test 05/14/19 12:22 Urine Color Yellow Urine Clarity Cloudy Urine pH 6.0 pH (4.8-9.5) Urine Specific [place] 1.009 Urine Protein Negative mg/dL (NEGATIVE) Urine Glucose (UA) Negative mg/dL (NEGATIVE) Urine Ketones Negative mg/dL (NEGATIVE) Urine Blood Negative (NEGATIVE) Urine Nitrite Positive (NEGATIVE) Urine Bilirubin Negative (NEGATIVE) Urine Urobilinogen Negative mg/dL (0.2-1.9) Urine Leukocyte Esterase Large (NEGATIVE) Urine RBC 4 /HPF (0-2/HPF) Urine WBC 166 /HPF (0-5/HPF) Urine WBC Clumps Many /HPF Urine Squamous Epithelial Cells Many /LPF (</=FEW) Urine Transitional Epithelial Cells Moderate /LPF (NONE-FEW) Urine Bacteria Many /HPF (NONE-FEW) Urine Mucus Few /HPF (NONE-FEW) EKG/Imaging EKG Interpretation 12 lead EKG: Time of EKG 1127. Rhythm: Atrial fibrillation, ventricular rate 103 BPM. Rate would range from 103-135. [place]: normal QRS: normal ST segments: No ST depression or elevation identified. Similar to previous EKGs showing atrial fibrillation. Imaging PATIENT NAME: Arline Ramirez : 1935 MR: [id number] V: [id number] EXAM DATE: ORDERING PHYSICIAN: LORETTA GUTIERREZ TECHNOLOGIST: Location: [facility] [place] Patient: Arline Ramirez : 1935 Visit/Account:[id number] Date of Sevice: 05/14/2019 EXAMINATION: Chest 2 Views HISTORY: Atrial fibrillation. COMPARISON: 03/24/2019. FINDINGS: Normal heart size and pulmonary vascularity with stable cardiomediastinal contours. Aortic calcification. The lungs are clear. No focal consolidation or pleural effusion. No pneumothorax. Visualized osseous structures are unremarkable. IMPRESSION: No evidence of acute cardiopulmonary disease. Report Dictated By: Philipp Hauser MD at 05/14/2019 12:11 PM Report E-Signed By: Philipp Hauser MD at 05/14/2019 12:12 PM WSN:[id number] ED Course/Re-evaluation Clinical Indication for ER IV: Hydration, IV Access ED Course The patient was admitted to room. A history and physical were obtained. Differential diagnosis were considered. An IV was started. A CBC, CMP, troponin and UA were collected. Negative two-view chest x-ray. CBC showing white count of 12.8, consistent with the patient's history, platelets 548, consistent with patient's history, chemistry showing sodium 134, negative troponin, UA showing positive nitrites, large leukocyte esterase, urine white blood cells 166, consistent with urinary tract infection, urine culture was sent. EKG showing atrial fibrillation, patient was given 50 mg IV diltiazem. The patient's rate did improve from 130s down to 80s and 90s, patient states she is feeling better. The patient's magnesium was on the low side of normal, I did give her 400 mg med oxide, she was also started on Macrobid for her urinary tract infection, instructed follow-up with her primary care provider for reevaluation next week she has recurrent symptomology of not feeling well to return to the ER, patient was understanding was discharged home. Decision to Disposition Date: May 14, 2019 Decision to Disposition Time: 13:26 Depart Departure Latest Vital Signs Vital Signs Date Time Temp Pulse Resp B/P (MAP) Pulse Ox O2 Delivery O2 Flow Rate FiO2 05/14/19 13:30 87 21 117/91 (100) 79 05/14/19 11:31 97.5 Room Air Impression: Primary Impression: Afib Additional Impression: Urinary tract infection Condition: Improved Disposition: HOME OR SELF-CARE Referrals: CATARINO RENAE DO (PCP) 1 Week New Scripts Nitrofurantoin Monohyd/M-Cryst (MACROBID 100 MG CAPSULE) 100 Mg Capsule 100 MG PO BID for 7 Days, #14 CAPSULE 0 Refills Prov: LORETTA GUTIERREZ-BC 05/14/19 Patient Instructions: Urinary Traction Infection in Older Adults (ED) Additional Instructions: Please follow up with Dr. Renae early next week for reevaluation. When you follow up, discuss taking a magnesium supplement, your magnesium was on the low side of normal. Take the Macrobid for your urinary tract infection. Drink plenty of water. Get plenty of rest. If you have any other needs before Dr. Renae returns please refer to the list of local providers we have given you. If you have any other concerns or worsening symptoms, return to the ED for reevaluation. Problem Qualifiers Primary Impression: Afib Atrial fibrillation type: paroxysmal Qualified Codes: I48.0 - Paroxysmal atrial fibrillation Additional Impression: Urinary tract infection Urinary tract infection type: acute cystitis Hematuria presence: without hematuria Qualified Codes: N30.00 - Acute cystitis without hematuria LORETTA GUTIERREZ STUDENT SUPPORT ADVISOR-BC May 14, 2019 11:32
[2019-05-14] MEDS ORDERED: NS(*) 0.9% 500 ML BAG 500 ML IV ONE (11:35)
[2019-05-14 11:48] LABS: PLATELET COUNT, AUTOMATED 548 K/uL (150-450)
--- NOTE | 2019-05-14 11:48 | EKG ---
FACILITY: [facility] PATIENT NAME: AURORA MORGAN : [id number] MR: [id number] V: [id number] EXAM DATE: ORDERING PHYSICIAN: LORETTA GUTIERREZ TECHNOLOGIST: DANIELA Test Reason : A FIB Blood Pressure : / mmHG Vent. Rate : 103 BPM Atrial Rate : 085 BPM P-R Int : 000 ms QRS Dur : 068 ms QT Int : 336 ms P-R-T Axes : 000 075 064 degrees QTc Int : 440 ms Atrial fibrillation Abnormal ECG When compared with ECG of 24-MAR-2019 11:53, Atrial fibrillation has replaced Normal sinus rhythm Confirmed by Gerardo Gold ([id number]) on 05/14/2019 10:37:51 PM Referred By: CATARINO ROSADO Confirmed By:Gerardo Faria
[2019-05-14] MEDS ORDERED: DILTIAZEM 5 MG/ML 5ML IVPUSH IVP ONE (12:00)
--- NOTE | 2019-05-14 12:21 | RADIOLOGY IMAGING REPORT ---
[place] [facility] [place]IENT NAME: Arline Ramirez : 1935 MR: [id number] V: [id number] EXAM DATE: ORDERING PHYSICIAN: LORETTA GUTIERREZ TECHNOLOGIST: Location: [facility] Patient: Arline Ramirez : 1935 Visit/Account:[id number] Date of Sevice: 05/14/2019 EXAMINATION: Chest 2 Views HISTORY: Atrial fibrillation. COMPARISON: 03/24/2019. FINDINGS: Normal heart size and pulmonary vascularity with stable cardiomediastinal contours. Aortic calcificat ion. The lungs are clear. No focal consolidation or pleural effusion. No pneumothorax. Visualized osseous structures are unremarkable. IMPRESSION: No evidence of acute cardiopulmonary disease. Report Dictated By: Philipp Hauser MD at 05/14/2019 12:11 PM Report E-Signed By: Philipp Hauser MD at 05/14/2019 12:12 PM WSN:[id number]
[2019-05-14] MEDS ORDERED: MAGNESIUM OXIDE 400 MG TAB PO ONE (13:25)
[2019-05-14] MEDS ORDERED: DILTIAZEM IR 30 MG TAB PO ONE (13:25)
[2019-05-14] MEDS ORDERED: NITR-105 PO (13:26)
[2019-05-14 13:30] VITALS: BP 117/91
== END 2019-05-14 14:16 | disposition home or self-care (01) ==
LOC: ER 11:44
DX: I48.0 Paroxysmal atrial fibrillation (principal); N30.00 Acute cystitis without hematuria
CPT/HCPCS: 71046; 81001; 83735; 84484; 85025; 87077; 87088; 87186; 93005; 96361; 96374; 99284; A9270; J3490; J7040; 82040; 82247; 82310; 82374; 82435; 82565; 82947; 84075; 84132; 84155; 84295; 84450; 84460; 84520

== ENCOUNTER 2019-05-26 08:07 | Emergency (ER) | payer MEDICARE, OTHER ==
[2019-01-27 09:06] VITALS: Wt 61.7 kg
[~2019-05-26 08:07] MED LIST changes: +NITR-105 PO
--- NOTE | 2019-05-26 08:10 | ER Report ---
History and Physical Time Seen By MD: 08:06 HPI/ROS CHIEF COMPLAINT: Rapid heart rate, shortness breath HISTORY OF PRESENT ILLNESS: Patient is an 84-year-old female here with complaints of shortness breath, rapid heart rate in the setting of atrial fibrillation on Xarelto. Patient was evaluated here on May 14 for similar symptoms at which time she had a urinary tract infection. Patient currently denies chest pain, fevers, recent infections. Patient is hemodynamically stable at time of evaluation, confirmed to be in atrial fibrillation on EKG. REVIEW OF SYSTEMS: Constitutional: No fever, no chills. Eyes: No discharge. ENT: No sore throat. Cardiovascular: No chest pain, + palpitations. Respiratory: No cough, + shortness of breath. Gastrointestinal: No abdominal pain, no vomiting. Genitourinary: No hematuria. Musculoskeletal: No back pain. Skin: No rashes. Neurological: No headache. Allergies: Coded Allergies: Egg Derived (Verified Allergy, Intermediate, HIVES, 03/24/19) Tetanus Vaccines and Toxoid (Verified Allergy, Intermediate, ANAPHYLAXIS, 03/24/19) Influenza Virus Vaccines (Verified Allergy, Unknown, 03/24/19) Home Meds Active Scripts Nitrofurantoin Monohyd/M-Cryst (MACROBID 100 MG CAPSULE) 100 Mg Capsule, 100 MG PO BID for 7 Days, #14 CAPSULE 0 Refills Prov:LORETTA GUTIERREZ TAX COMPLIANCE AGENT- 05/14/19 Rivaroxaban (XARELTO 10 MG TAB (OR EQUIV)) 10 Mg Tablet, 15 MG PO QPM for 30 Days, #45 TAB Prov:SHANE ALVAREZ DO 01/28/19 Metoprolol Succinate (METOPROLOL SUCCINATE) 25 Mg Tab.er.24h, 25 MG PO QDAY for 30 Days, #30 TAB.SR.24H Prov:SHANE ALVAREZ DO 01/28/19 Diltiazem Hcl (DILTIAZEM 24HR CD) 120 Mg Cap.er.24h, 240 MG PO QDAY for 30 Days, #60 CAP.SR.24H Prov:SHANE ALVAREZ DO 01/28/19 Pantoprazole Sodium (PANTOPRAZOLE SODIUM) 40 Mg Tablet.dr, 1 TAB PO PRN PRN for heartburn, #90 TAB.SR 4 Refills Prov:SAVANNAH GOOD MD 01/17/17 Reported Medications Lisinopril (LISINOPRIL) 5 Mg Tablet, 5 MG PO QDAY, TAB 03/24/19 Sodium Chloride (CAROLINE-128) 15 Ml Drops, 1 GTT OP BID 01/30/16 Vit C/E/Zn/Coppr/Lutein/Zeaxan (Preservision Areds 2 Softgel) 1 Each Capsule, 2 CAP PO QDAY 01/30/16 Glucosa Stiles 2KCL/Chondroitin Stiles (GLUCOSAMINE & CHONDROITIN CAP) 1 Each Capsule, 1 CAP PO BID 01/30/16 Cholecalciferol (Vitamin D3) (VITAMIN D) 2,000 Unit Tablet, 1 CAP PO QDAY 11/11/14 Hx Smoking: Yes (LONG TIME [id number] 10-12 YEARS AGO) Smoking Status: Former Smoker Exposure to Second Hand Smoke?: Yes Hx Substance Use Disorder: No Hx Alcohol Use: No Constitutional Vital Sign - Last 24 Hours 05/26/19 05/26/19 05/26/19 05/26/19 08:09 08:11 08:11 08:20 Temp 97.5 Pulse 122 Resp 18 B/P (MAP) 153/108 (123) 153/102 122/71 (88) Pulse Ox 94 O2 Delivery Nasal Cannula O2 Flow Rate 3.0 Physical Exam General Appearance: The patient is alert, has no immediate need for airway protection and no signs of toxicity. No acute distress Eyes: Pupils equal and round no pallor or injection. ENT, Mouth: Mucous membranes are moist. Respiratory: There are no retractions, lungs are clear to auscultation. Cardiovascular: Irregular rate and rhythm Gastrointestinal: Abdomen is soft and non tender, no masses, bowel sounds normal. Neurological: Alert and oriented, no focal neurological deficits Skin: Warm and dry, no rashes. Musculoskeletal: Neck is supple non tender. Extremities are nontender, nonswollen and have full range of motion. DIFFERENTIAL DIAGNOSIS: After history and physical exam differential diagnosis was considered for chest pain including but not limited to myocardial ischemia, pericarditis pulmonary embolus, chest wall pain, pleural inflammation and pulmonary infectious causes. Medical Decision Making Data Points Result Diagram: 05/26/1981105/26/19811 Laboratory Hematology Test 05/26/19 08:12 White Blood Count 11.8 k/uL (4.5-11.0) H Red Blood Count 3.89 M/uL (4.17-5.56) L Hemoglobin 12.2 g/dL (12.0-16.0) Hematocrit 35.9 % (34.0-47.0) Mean Corpuscular Volume 92.3 fL (80.0-96.0) Mean Corpuscular Hemoglobin 31.4 pg (26.0-33.0) Mean Corpuscular Hemoglobin Concent 34.0 g/dL (32.0-36.0) Red Cell Distribution Width 15.0 % (11.5-14.5) H Platelet Count 598 K/uL (150-450) H Mean Platelet Volume 8.0 fL (7.2-11.1) Neutrophils (%) (Auto) 63.8 % (39.4-72.5) Lymphocytes (%) (Auto) 20.1 % (17.6-49.6) Monocytes (%) (Auto) 11.7 % (4.1-12.4) Eosinophils (%) (Auto) 3.0 % (0.4-6.7) Basophils (%) (Auto) 1.4 % (0.3-1.4) Nucleated RBC Relative Count (auto) 0.1 /100WBC Neutrophils # (Auto) 7.5 K/uL (2.0-7.4) H Lymphocytes # (Auto) 2.4 K/uL (1.3-3.6) Monocytes # (Auto) 1.4 K/uL (0.3-1.0) H Eosinophils # (Auto) 0.4 K/uL (0.0-0.5) Basophils # (Auto) 0.2 K/uL (0.0-0.1) H Nucleated RBC Absolute Count (auto) 0.01 K/uL Peripheral Blood Smear Yes Y/N Chemistry Test 05/26/19 08:12 Sodium Level 138 mmol/L (137-145) Potassium Level 4.1 mmol/L (3.5-5.0) Chloride Level 99 mmol/L (98-107) Carbon Dioxide Level 29 mmol/L (22-31) Blood Urea Nitrogen 14 mg/dl (7-18) Creatinine 0.90 mg/dl (0.52-1.04) Glomerular Filtration Rate Calc 59.5 Random Glucose 100 mg/dl (75-110) Calcium Level 9.4 mg/dl (8.4-10.2) Total Bilirubin 0.4 mg/dl (0.2-1.3) Aspartate Amino Transf (AST/SGOT) 34 U/L (0-35) Alanine Aminotransferase (ALT/SGPT) 27 U/L (0-56) Alkaline Phosphatase 79 U/L (0-126) Troponin I < 0.012 ng/ml B-Type Natriuretic Peptide 394 pg/ml (0-100) Total Protein 6.8 g/dl (6.3-8.2) Albumin 4.0 g/dl (3.5-5.0) Coagulation Test 05/26/19 08:12 Prothrombin Time 17.0 seconds (12.0-14.4) Prothromb Time International Ratio 1.37 Activated Partial Thromboplast Time 37 seconds (23-35) Urinalysis Test 05/26/19 09:00 Urine Color Straw Urine Clarity Clear Urine pH 7.0 pH (4.8-9.5) Urine Specific Patriot 1.005 Urine Protein Negative mg/dL (NEGATIVE) Urine Glucose (UA) Negative mg/dL (NEGATIVE) Urine Ketones Negative mg/dL (NEGATIVE) Urine Blood Negative (NEGATIVE) Urine Nitrite Negative (NEGATIVE) Urine Bilirubin Negative (NEGATIVE) Urine Urobilinogen Negative mg/dL (0.2-1.9) Urine Leukocyte Esterase Negative (NEGATIVE) Urine RBC <1 /HPF (0-2/HPF) Urine WBC <1 /HPF (0-5/HPF) Urine Squamous Epithelial Cells Moderate /LPF (</=FEW) Urine Bacteria Negative /HPF (NONE-FEW) Urine Mucus None /HPF (NONE-FEW) EKG/Imaging EKG Interpretation PATIENT NAME: AURORA MORGAN : [id number] MR: [id number] V: [id number] EXAM DATE: ORDERING PHYSICIAN: JOHN LOZADA TECHNOLOGIST: DANIELA Test Reason : SOB Blood Pressure : / mmHG Vent. Rate : 119 BPM Atrial Rate : 144 BPM P-R Int : 000 ms QRS Dur : 080 ms QT Int : 326 ms P-R-T Axes : 000 074 028 degrees QTc Int : 458 ms Atrial fibrillation Nonspecific ST abnormality , probably digitalis effect Abnormal ECG When compared with ECG of 14-MAY-2019 11:27, ST no longer elevated in Inferior leads Referred By: KIERRA Confirmed By: Imaging PATIENT NAME: Aurora Morgan : 1935 MR: [id number] V: [id number] EXAM DATE: ORDERING PHYSICIAN: JOHN LOZADA TECHNOLOGIST: Location: [facility] Patient: Aurora Morgan : 1935 Visit/Account:[id number] Date of Sevice: 05/26/2019 Chest single view: HISTORY: Chest pain COMPARISON: 05/14/2019 Frontal view the chest: Heart size is upper limits of normal. There is prominence of the central pulmonary arteries and pulmonary vasculature. Interstitial markings are also more prominent compared to previous. There is no consolidation or pleural effusion. No pneumothorax. Minimal bibasilar subsegmental atelectasis or scarring is present. Atherosclerotic changes are present in the aorta. Hiatal hernia is noted. IMPRESSION: 1. Mild cardiomegaly vascular congestion. There is possible interstitial edema. No evidence of long congestive heart failure. 2. Minor left basilar subsegmental atelectasis. ED Course/Re-evaluation ED Course Patient is an 84-year-old female with a history of atrial fibrillation and Xarelto here with complaints of shortness breath, palpitations. EKG showed patient was in atrial fibrillation. Chest x-ray was clear. Troponin negative. Patient remained hemodynamically stable throughout course. She received 3 boluses of diltiazem and a liter of fluids. Recommend the patient follows up closely with her primary care provider to discuss possible need for increase in oral diltiazem. Return precautions provided. Patient was stable at time of discharge. Decision to Disposition Date: May 26, 2019 Decision to Disposition Time: 10:33 Depart Departure Latest Vital Signs Vital Signs Date Time Temp Pulse Resp B/P (MAP) Pulse Ox O2 Delivery O2 Flow Rate FiO2 05/26/19 08:20 122/71 (88) 05/26/19 08:11 97.5 122 18 94 Nasal Cannula 05/26/19 08:11 3.0 Impression: Primary Impression: Afib Condition: Improved Disposition: HOME OR SELF-CARE Referrals: CATARINO ROSADO DO (PCP) Patient Instructions: A-fib (Atrial Fibrillation) (DC) Additional Instructions: Please follow-up with her primary care provider in the next 24-48 hours for reevaluation. Please discuss with your primary care provider whether or not to increase her diltiazem dose. Please return promptly if you develop fevers, chills, chest pain, nausea, vomiting. Please follow-up in the patient's portable for axis II your labs including a magnesium level and discuss further with your primary care provider. JOHN LOZADA DO May 26, 2019 08:10
[2019-05-26] MEDS ORDERED: NS(*) 0.9% 1000 ML BAG 1,000 ML IV ONE (08:22)
[2019-05-26] MEDS ORDERED: DILTIAZEM 5 MG/ML 5ML IVPUSH IVP ONE ×3 (08:25→10:15)
[2019-05-26 08:41] LABS: INR 1.37
--- NOTE | 2019-05-26 08:47 | EKG ---
FACILITY: [facility] PATIENT NAME: AURORA MORGAN : [id number] MR: [id number] V: [id number] EXAM DATE: ORDERING PHYSICIAN: JOHN LOZADA TECHNOLOGIST: DANIELA Test Reason : SOB Blood Pressure : / mmHG Vent. Rate : 119 BPM Atrial Rate : 144 BPM P-R Int : 000 ms QRS Dur : 080 ms QT Int : 326 ms P-R-T Axes : 000 074 028 degrees QTc Int : 458 ms Atrial fibrillation Nonspecific ST abnormality Abnormal ECG When compared with ECG of 14-MAY-2019 11:27, No significant change was found Confirmed by Gerardo Gold ([id number]) on 05/26/2019 8:35:37 PM Referred By: KIERRA Confirmed By:Gerardo Faria
[2019-05-26 08:53] LABS: PLATELET COUNT, AUTOMATED 598 K/uL (150-450)
--- NOTE | 2019-05-26 08:55 | RADIOLOGY IMAGING REPORT ---
FACILITY: [facility] PATIENT NAME: Arline Ramirez : 1935 MR: [id number] V: [id number] EXAM DATE: ORDERING PHYSICIAN: JOHN LOZADA TECHNOLOGIST: Location: [facility] [place] Patient: Arline Ramirez : 1935 Visit/Account:[id number] Date of Sevice: 05/26/2019 Chest single view: HISTORY: Chest pain COMPARISON: 05/14/2019 Frontal view the chest: Heart size is upper limits of normal. There is prominence of the central pul monary arteries and pulmonary vasculature. Interstitial markings are also more prominent compared to previous. There is no consolidation or pleural effusion. No pneumothorax. Minimal bibasilar subse gmental atelectasis or scarring is present. Atherosclerotic changes are present in the aorta. Hiatal hernia is noted. IMPRESSION: 1. Mild cardiomegaly vascular congestion. There is possible interstitial edema. No evidence of fra nk congestive heart failure. 2. Minor left basilar subsegmental atelectasis. Report Dictated By: Caroline Saavedra MD at 05/26/2019 8:45 AM Report E-Signed By: Caroline Saavedra MD at 05/26/2019 8:47 AM WSN:[email or web address]
[2019-05-26 09:20] VITALS: BP 120/106
== END 2019-05-26 10:46 | disposition home or self-care (01) ==
LOC: ER 08:18
DX: I48.91 Unspecified atrial fibrillation (principal); Z79.01 Long term (current) use of anticoagulants; Z79.899 Other long term (current) drug therapy; Z87.891 Personal history of nicotine dependence
CPT/HCPCS: 71045; 81001; 83735; 83880; 84484; 85025; 85610; 85730; 93005; 96374; 96376; 99284; J3490; J7030; 82040; 82247; 82310; 82374; 82435; 82565; 82947; 84075; 84132; 84155; 84295; 84450; 84460; 84520

== ENCOUNTER 2019-06-09 07:31 | Emergency (ER) | payer MEDICARE, OTHER ==
[2019-01-27 09:06] VITALS: Wt 63.5 kg
--- NOTE | 2019-06-09 07:35 | ER Report ---
History and Physical Time Seen By MD: 07:31 HPI/ROS CHIEF COMPLAINT: Shortness of breath HISTORY OF PRESENT ILLNESS: Patient is an 84-year-old female here with complaints of shortness breath, palpitations starting this morning while she was making her bed. Patient reports that she does have a history of atrial fibrillation and does follow with cardiology. Patient is afebrile to evaluation, denies chest pain. Patient is anticoagulated with Xarelto and takes diltiazem. Patient is afebrile, hemodynamically stable at time of evaluation. REVIEW OF SYSTEMS: Constitutional: No fever, no chills. Eyes: No discharge. ENT: No sore throat. Cardiovascular: No chest pain, no palpitations. Respiratory: No cough, + shortness of breath. Gastrointestinal: No abdominal pain, no vomiting. Genitourinary: No hematuria. Musculoskeletal: No back pain. Skin: No rashes. Neurological: No headache. Allergies: Coded Allergies: Egg Derived (Verified Allergy, Intermediate, HIVES, 06/09/19) Tetanus Vaccines and Toxoid (Verified Allergy, Intermediate, ANAPHYLAXIS, 06/09/19) Influenza Virus Vaccines (Verified Allergy, Unknown, 06/09/19) Home Meds Active Scripts Nitrofurantoin Monohyd/M-Cryst (MACROBID 100 MG CAPSULE) 100 Mg Capsule, 100 MG PO BID for 7 Days, #14 CAPSULE 0 Refills Prov:LORETTA GUTIERREZ COAT FITTER-BC 05/14/19 Rivaroxaban (XARELTO 10 MG TAB (OR EQUIV)) 10 Mg Tablet, 15 MG PO QPM for 30 Days, #45 TAB Prov:SHANE ALVAREZ DO 01/28/19 Metoprolol Succinate (METOPROLOL SUCCINATE) 25 Mg Tab.er.24h, 25 MG PO QDAY for 30 Days, #30 TAB.SR.24H Prov:SHANE ALVAREZ DO 01/28/19 Diltiazem Hcl (DILTIAZEM 24HR CD) 120 Mg Cap.er.24h, 240 MG PO QDAY for 30 Days, #60 CAP.SR.24H Prov:SHANE ALVAREZ DO 01/28/19 Pantoprazole Sodium (PANTOPRAZOLE SODIUM) 40 Mg Tablet.dr, 1 TAB PO PRN PRN for heartburn, #90 TAB.SR 4 Refills Prov:SAVANNAH GOOD MD 01/17/17 Reported Medications Hydrochlorothiazide (HYDROCHLOROTHIAZIDE) 12.5 Mg Tablet, QDAYA 06/09/19 Lisinopril (LISINOPRIL) 5 Mg Tablet, 5 MG PO QDAY, TAB 03/24/19 Sodium Chloride (CAROLINE-128) 15 Ml Drops, 1 GTT OP BID 01/30/16 Vit C/E/Zn/Coppr/Lutein/Zeaxan (Preservision Areds 2 Softgel) 1 Each Capsule, 2 CAP PO QDAY 01/30/16 Glucosa Stiles 2KCL/Chondroitin Stiles (GLUCOSAMINE & CHONDROITIN CAP) 1 Each Capsule, 1 CAP PO BID 01/30/16 Cholecalciferol (Vitamin D3) (VITAMIN D) 2,000 Unit Tablet, 1 CAP PO QDAY 11/11/14 Hx Smoking: Yes (LONG TIME [id number] 10-12 YEARS AGO) Smoking Status: Former Smoker Exposure to Second Hand Smoke?: Yes Hx Substance Use Disorder: No Hx Alcohol Use: No Constitutional Vital Sign - Last 24 Hours 06/09/19 06/09/19 06/09/19 06/09/19 07:36 07:36 07:45 08:00 Temp 97.3 Pulse 121 88 93 Resp 16 16 12 B/P (MAP) 122/84 133/97 (109) Pulse Ox 94 94 95 O2 Delivery Nasal Cannula O2 Flow Rate 3.0 06/09/19 06/09/19 08:30 08:45 Pulse 110 92 Resp 16 17 B/P (MAP) 113/73 (86) Pulse Ox 97 97 Physical Exam General Appearance: The patient is alert, has no immediate need for airway protection and no signs of toxicity. No acute distress Eyes: Pupils equal and round no pallor or injection. ENT, Mouth: Mucous membranes are moist. Respiratory: There are no retractions, lungs are clear to auscultation. Cardiovascular: Irregularly irregular Gastrointestinal: Abdomen is soft and non tender, no masses, bowel sounds normal. Neurological: Alert and oriented, no focal neurological findings, cranial nerves intact Skin: Warm and dry, no rashes. Musculoskeletal: Neck is supple non tender. Extremities are nontender, nonswollen and have full range of motion. [ ] DIFFERENTIAL DIAGNOSIS: After history and physical exam differential diagnosis was considered for shortness of breath including but not limited to pulmonary infectious process, COPD, asthma, pulmonary embolus and congestive heart failure. Medical Decision Making Data Points Result Diagram: 06/09/19 0735 06/09/19 0735 Laboratory Hematology Test 06/09/19 07:35 White Blood Count 14.8 k/uL (4.5-11.0) H Red Blood Count 4.48 M/uL (4.17-5.56) Hemoglobin 13.7 g/dL (12.0-16.0) Hematocrit 41.1 % (34.0-47.0) Mean Corpuscular Volume 91.8 fL (80.0-96.0) Mean Corpuscular Hemoglobin 30.6 pg (26.0-33.0) Mean Corpuscular Hemoglobin Concent 33.4 g/dL (32.0-36.0) Red Cell Distribution Width 15.0 % (11.5-14.5) H Platelet Count 702 K/uL (150-450) H Mean Platelet Volume 8.3 fL (7.2-11.1) Neutrophils (%) (Auto) 71.0 % (39.4-72.5) Lymphocytes (%) (Auto) 15.1 % (17.6-49.6) L Monocytes (%) (Auto) 10.1 % (4.1-12.4) Eosinophils (%) (Auto) 2.8 % (0.4-6.7) Basophils (%) (Auto) 1.0 % (0.3-1.4) Nucleated RBC Relative Count (auto) 0.1 /100WBC Neutrophils # (Auto) 10.5 K/uL (2.0-7.4) H Lymphocytes # (Auto) 2.2 K/uL (1.3-3.6) Monocytes # (Auto) 1.5 K/uL (0.3-1.0) H Eosinophils # (Auto) 0.4 K/uL (0.0-0.5) Basophils # (Auto) 0.1 K/uL (0.0-0.1) Nucleated RBC Absolute Count (auto) 0.02 K/uL Peripheral Blood Smear Yes Y/N Chemistry Test 06/09/19 07:35 Sodium Level 135 mmol/L (137-145) Potassium Level 3.8 mmol/L (3.5-5.0) Chloride Level 95 mmol/L (98-107) Carbon Dioxide Level 32 mmol/L (22-31) Blood Urea Nitrogen 18 mg/dl (7-18) Creatinine 1.10 mg/dl (0.52-1.04) Glomerular Filtration Rate Calc 47.2 Random Glucose 97 mg/dl (75-110) Calcium Level 10.3 mg/dl (8.4-10.2) Total Bilirubin 0.2 mg/dl (0.2-1.3) Aspartate Amino Transf (AST/SGOT) 31 U/L (0-35) Alanine Aminotransferase (ALT/SGPT) 22 U/L (0-56) Alkaline Phosphatase 90 U/L (0-126) Troponin I < 0.012 ng/ml B-Type Natriuretic Peptide 486 pg/ml (0-100) Total Protein 7.7 g/dl (6.3-8.2) Albumin 4.5 g/dl (3.5-5.0) Urinalysis Test 06/09/19 08:16 Urine Color Yellow Urine Clarity Slightly-cloudy Urine pH 7.0 pH (4.8-9.5) Urine Specific Ezel 1.008 Urine Protein Negative mg/dL (NEGATIVE) Urine Glucose (UA) Negative mg/dL (NEGATIVE) Urine Ketones Negative mg/dL (NEGATIVE) Urine Blood Negative (NEGATIVE) Urine Nitrite Negative (NEGATIVE) Urine Bilirubin Negative (NEGATIVE) Urine Urobilinogen Negative mg/dL (0.2-1.9) Urine Leukocyte Esterase Moderate (NEGATIVE) Urine RBC 1 /HPF (0-2/HPF) Urine WBC 12 /HPF (0-5/HPF) Urine Squamous Epithelial Cells Many /LPF (</=FEW) Urine Bacteria Negative /HPF (NONE-FEW) Urine Mucus None /HPF (NONE-FEW) EKG/Imaging EKG Interpretation PATIENT NAME: AURORA MORGAN : [id number] MR: [id number] V: [id number] EXAM DATE: ORDERING PHYSICIAN: JOHN LOZADA TECHNOLOGIST: DANIELA Test Reason : A FIB Blood Pressure : / mmHG Vent. Rate : 082 BPM Atrial Rate : 104 BPM P-R Int : 000 ms QRS Dur : 078 ms QT Int : 364 ms P-R-T Axes : 000 082 076 degrees QTc Int : 425 ms Atrial fibrillation Abnormal ECG When compared with ECG of 26-MAY-2019 08:07, ST elevation now present in Inferior leads Nonspecific T wave abnormality no longer evident in Inferior leads Referred By: CATARNIO ROSADO Confirmed By: Imaging PATIENT NAME: Aurora Morgan : 1935 MR: [id number] V: [id number] EXAM DATE: ORDERING PHYSICIAN: JOHN LOZADA TECHNOLOGIST: Location: [facility] Patient: Aurora Morgan : 1935 Visit/Account:[id number] Date of Sevice: 06/09/2019 Study: CHEST SINGLE AP Indication: No evidence of breath Comparison study: 05/26/2019 Findings: AP portable chest demonstrates no evidence of acute infiltrate. There is no evidence of pleural effusion or pneumothorax. The style, cardiac, and diaphragmatic contours are unremarkable. There is a small hiatus hernia present. There is an area of sclerosis within the proximal left humerus incidentally noted. IMPRESSION: No acute cardiopulmonary abnormality identified. There is a small area of sclerosis within the left humerus. There is a small hiatus hernia present. Report Dictated By: Shashank Anne at 06/09/2019 8:04 AM Report E-Signed By: Shashank Anne at 06/09/2019 8:16 AM WSN:[id number] ED Course/Re-evaluation ED Course Patient is an 84-year-old female here with complaints of shortness breath, palpitations since this morning. EKG was nonischemic. Troponin was negative. Patient was given 5 mg diltiazem IV, patient took her by mouth diltiazem this morning. Urinalysis was equivocal, culture sent. Patient did have mild leuk ocytosis of 14,000, chest x-ray was clear however patient did complain of cough and shortness breath. Decision was made to cross cover for bacterial infection with Levaquin 500 mg daily for 5 days. Recommend continue current medications. Return precautions provided. Close PCP follow-up recommended. Decision to Disposition Date: Jun 09, 2019 Decision to Disposition Time: 10:04 Depart Departure Latest Vital Signs Vital Signs Date Time Temp Pulse Resp B/P (MAP) Pulse Ox O2 Delivery O2 Flow Rate FiO2 06/09/19 08:45 92 17 97 06/09/19 08:30 113/73 (86) 06/09/19 07:36 97.3 Nasal Cannula 06/09/19 07:36 3.0 Impression: Primary Impression: Shortness of breath Condition: Improved Disposition: HOME OR SELF-CARE Referrals: CATARINO ROSADO DO (PCP) Patient Instructions: Dyspnea (GEN) Additional Instructions: Please follow up closely with her primary care provider. Please return promptly if you develop fevers, worsening shortness breath, chest pains, nausea, vomiting. Please take Levaquin 1 tablet daily for 5 days. JOHN LOZADA DO Jun 09, 2019 07:34
[2019-06-09] MEDS ORDERED: HYDR12.561 (07:36)
[2019-06-09] MEDS ORDERED: NS(*) 0.9% 500 ML BAG 500 ML IV ONE (07:44)
[2019-06-09] MEDS ORDERED: DILTIAZEM 5 MG/ML 5ML IVPUSH IVP ONE (07:45)
--- NOTE | 2019-06-09 08:13 | EKG ---
FACILITY: [facility] [place] PATIENT NAME: AURORA MORGAN : [id number] MR: [id number] V: [id number] EXAM DATE: ORDERING PHYSICIAN: JOHN LOZADA TECHNOLOGIST: DANIELA Test Reason : A FIB Blood Pressure : / mmHG Vent. Rate : 082 BPM Atrial Rate : 104 BPM P-R Int : 000 ms QRS Dur : 078 ms QT Int : 364 ms P-R-T Axes : 000 082 076 degrees QTc Int : 425 ms Atrial fibrillation No obvious ST-T abnormalities When compared with ECG of 26-MAY-2019 08:07, Relatively unchanged Confirmed by ROXANN CAO ([id number]) on 06/09/2019 2:12:53 PM Referred By: CATARINO ROSADO Confirmed By:ROXANN CAO
--- NOTE | 2019-06-09 08:24 | RADIOLOGY IMAGING REPORT ---
FACILITY: [facility] PATIENT NAME: Arline Ramirez : 1935 MR: [id number] V: [id number] EXAM DATE: ORDERING PHYSICIAN: JOHN LOZADA TECHNOLOGIST: Location: [facility] Patient: Arline Ramirez : 1935 Visit/Account:[id number] Date of Sevice: 06/09/2019 Study: CHEST SINGLE AP Indication: No evidence of breath Comparison study: 05/26/2019 Findings: AP portable chest demonstrates no evidence of acute infiltrate. There is no evidence of pl eural effusion or pneumothorax. The style, cardiac, and diaphragmatic contours are unremarkable. There is a small hiatus hernia present. There is an area of sclerosis within the proximal left humerus incidentally noted. IMPRESSION: No acute cardiopulmonary abnormality identified. There is a small area of sclerosis with in the left humerus. There is a small hiatus hernia present. Report Dictated By: Shashank Anne at 06/09/2019 8:04 AM Report E-Signed By: Shashank Anne at 06/09/2019 8:16 AM WSN:[id number]
[2019-06-09 08:28] LABS: PLATELET COUNT, AUTOMATED 702 K/uL (150-450)
[2019-06-09 10:20] VITALS: BP 148/102
[2019-06-09] MEDS ORDERED: CEPH500C24 PO (19:50)
== END 2019-06-09 10:18 | disposition home or self-care (01) ==
LOC: ER 07:36
DX: R06.02 Shortness of breath (principal)
CPT/HCPCS: 71045; 81001; 83880; 84484; 85025; 87088; 93005; 96374; 99284; J3490; J7040; 82040; 82247; 82310; 82374; 82435; 82565; 82947; 84075; 84132; 84155; 84295; 84450; 84460; 84520; 87186

== ENCOUNTER 2019-06-09 18:06 | Emergency (ER) | payer MEDICARE, OTHER ==
[2019-01-27 09:06] VITALS: Wt 60.8 kg
[~2019-06-09 18:06] MED LIST changes: +HYDR12.561
--- NOTE | 2019-06-09 18:42 | ER Report ---
History and Physical Time Seen By MD: 18:09 Hx. of Stated Complaint: HEART RACING DIZZY SHORT OF BREATHE HPI/ROS CHIEF COMPLAINT: Atrial fibrillation again HISTORY OF PRESENT ILLNESS: 84-year-old female with history of paroxysmal A. fib, takes riveroxiban daily, was seen this morning with A. fib with RVR, given an extra dose of diltiazem, felt better, was also diagnosed with UTI and placed on Macrobid. She took one dose of Macrobid and states that it made her stomach upset so has not taken any further. She does not have any further UTI symptoms. Patient reports that she was doing well until approximately 1700, at which point she began to get short of breath and felt her heart racing, similar to prior events. She did take her regular evening dose of diltiazem at approximately 1800 and presents here because of the symptoms. There are no new or different symptoms from prior episodes. Patient states that she has been here multiple times with similar presentations. She has no chest pain, no abdominal pain, naus ea, vomiting, headache, fever, new leg swelling. REVIEW OF SYSTEMS: Constitutional: No fever, no chills. Eyes: No discharge. ENT: No sore throat. Cardiovascular: above Respiratory: above Gastrointestinal: No abdominal pain, no vomiting. Genitourinary: no dysuria Musculoskeletal: No back pain. Skin: No rashes. Neurological: No headache. Remainder of the 14 system rev: Yes Allergies: Coded Allergies: Egg Derived (Verified Allergy, Intermediate, HIVES, 06/09/19) Tetanus Vaccines and Toxoid (Verified Allergy, Intermediate, ANAPHYLAXIS, 06/09/19) Influenza Virus Vaccines (Verified Allergy, Unknown, 06/09/19) Home Meds Active Scripts Cephalexin Monohydrate (CEPHALEXIN) 500 Mg Cap, 500 MG PO Q12H for 7 Days, #14 CAP Prov:JOHNNY BALDWIN MD 06/09/19 Nitrofurantoin Monohyd/M-Cryst (MACROBID 100 MG CAPSULE) 100 Mg Capsule, 100 MG PO BID for 7 Days, #14 CAPSULE 0 Refills Prov:LORETTA GUTIERREZ LABORER ROAD-BC 05/14/19 Rivaroxaban (XARELTO 10 MG TAB (OR EQUIV)) 10 Mg Tablet, 15 MG PO QPM for 30 Days, #45 TAB Prov:SHANE ALVAREZ DO 01/28/19 Metoprolol Succinate (METOPROLOL SUCCINATE) 25 Mg Tab.er.24h, 25 MG PO QDAY for 30 Days, #30 TAB.SR.24H Prov:SHANE ALVAREZ DO 01/28/19 Diltiazem Hcl (DILTIAZEM 24HR CD) 120 Mg Cap.er.24h, 240 MG PO QDAY for 30 Days, #60 CAP.SR.24H Prov:SHANE ALVAREZ DO 01/28/19 Pantoprazole Sodium (PANTOPRAZOLE SODIUM) 40 Mg Tablet.dr, 1 TAB PO PRN PRN for heartburn, #90 TAB.SR 4 Refills Prov:SAVANNAH GOOD MD 01/17/17 Reported Medications Hydrochlorothiazide (HYDROCHLOROTHIAZIDE) 12.5 Mg Tablet, QDAYA 06/09/19 Lisinopril (LISINOPRIL) 5 Mg Tablet, 5 MG PO QDAY, TAB 03/24/19 Sodium Chloride (CAROLINE-128) 15 Ml Drops, 1 GTT OP BID 01/30/16 Vit C/E/Zn/Coppr/Lutein/Zeaxan (Preservision Areds 2 Softgel) 1 Each Capsule, 2 CAP PO QDAY 01/30/16 Glucosa Stiles 2KCL/Chondroitin Stiles (GLUCOSAMINE & CHONDROITIN CAP) 1 Each Capsule, 1 CAP PO BID 01/30/16 Cholecalciferol (Vitamin D3) (VITAMIN D) 2,000 Unit Tablet, 1 CAP PO QDAY 11/11/14 Reviewed Nurses Notes: Yes Old Medical Records Reviewed: Yes Hx Smoking: Yes (LONG TIME [id number] 10-12 YEARS AGO) Smoking Status: Former Smoker Exposure to Second Hand Smoke?: Yes Hx Substance Use Disorder: No Hx Alcohol Use: No Constitutional Vital Sign - Last 24 Hours 06/09/19 06/09/19 06/09/19 06/09/19 18:06 18:09 18:14 18:17 Temp 98.3 Pulse 88 98 Resp 14 B/P (MAP) 138/75 (96) 138/74 Pulse Ox 95 O2 Delivery Nasal Cannula O2 Flow Rate 3.0 06/09/19 06/09/19 06/09/19 06/09/19 18:30 18:36 19:06 19:36 Pulse 86 100 88 Resp 21 13 21 B/P (MAP) 141/83 (102) Pulse Ox 95 95 96 8/6/19 8/6/19 8/6/19 8/6/19 19:41 19:56 20:11 20:26 Pulse 97 ??? 98 101 Resp 19 15 20 Pulse Ox 95 06/09/19 06/09/19 06/09/19 06/09/19 20:31 20:35 20:36 20:41 Pulse 87 110 ??? Resp 15 21 B/P (MAP) 134/82 (99) Pulse Ox 97 Intake and Output 06/09/19 06/09/19 06/10/19 15:03 23:03 07:03 Intake Total 996 ml Balance 996 ml Physical Exam General Appearance: The patient is alert, has no immediate need for airway protection and no signs of toxicity. Eyes: Pupils equal and round no pallor or injection. ENT, Mouth: Mucous membranes are moist. Respiratory: There are no retractions, lungs are clear to auscultation. Cardiovascular: irregular rhythm, rate 80-110, no murmurs Gastrointestinal: Abdomen is soft and non tender, no masses, bowel sounds normal. Neurological: alert, oriented x 3, no gross focal deficits Skin: Warm and dry, no rashes. Musculoskeletal: Extremities are nontender, nonswollen and have full range of motion. DIFFERENTIAL DIAGNOSIS: After history and physical exam differential diagnosis was considered for pe, pneumonia, uti/sepsis, acs, or other emergent cause of symptoms Medical Decision Making Data Points Result Diagram: 06/09/19 1832 06/09/19 1832 Laboratory Hematology Test 06/09/19 18:32 White Blood Count 14.0 k/uL (4.5-11.0) H Red Blood Count 4.07 M/uL (4.17-5.56) L Hemoglobin 12.5 g/dL (12.0-16.0) Hematocrit 37.2 % (34.0-47.0) Mean Corpuscular Volume 91.6 fL (80.0-96.0) Mean Corpuscular Hemoglobin 30.7 pg (26.0-33.0) Mean Corpuscular Hemoglobin Concent 33.5 g/dL (32.0-36.0) Red Cell Distribution Width 14.7 % (11.5-14.5) H Platelet Count 608 K/uL (150-450) H Mean Platelet Volume 8.2 fL (7.2-11.1) Neutrophils (%) (Auto) 74.4 % (39.4-72.5) H Lymphocytes (%) (Auto) 12.3 % (17.6-49.6) L Monocytes (%) (Auto) 9.7 % (4.1-12.4) Eosinophils (%) (Auto) 2.1 % (0.4-6.7) Basophils (%) (Auto) 1.5 % (0.3-1.4) H Nucleated RBC Relative Count (auto) 0.1 /100WBC Neutrophils # (Auto) 10.4 K/uL (2.0-7.4) H Lymphocytes # (Auto) 1.7 K/uL (1.3-3.6) Monocytes # (Auto) 1.4 K/uL (0.3-1.0) H Eosinophils # (Auto) 0.3 K/uL (0.0-0.5) Basophils # (Auto) 0.2 K/uL (0.0-0.1) H Nucleated RBC Absolute Count (auto) 0.01 K/uL Peripheral Blood Smear Yes Y/N Chemistry Test 06/09/19 18:32 Sodium Level 131 mmol/L (137-145) Potassium Level 3.6 mmol/L (3.5-5.0) Chloride Level 95 mmol/L (98-107) Carbon Dioxide Level 27 mmol/L (22-31) Blood Urea Nitrogen 20 mg/dl (7-18) Creatinine 0.90 mg/dl (0.52-1.04) Glomerular Filtration Rate Calc 59.5 Random Glucose 141 mg/dl (75-110) Calcium Level 9.8 mg/dl (8.4-10.2) Magnesium Level 1.6 mg/dl (1.7-2.2) Urinalysis Test 06/09/19 19:05 Urine Color Yellow Urine Clarity Cloudy Urine pH 6.0 pH (4.8-9.5) Urine Specific [place] 1.012 Urine Protein Negative mg/dL (NEGATIVE) Urine Glucose (UA) Negative mg/dL (NEGATIVE) Urine Ketones Negative mg/dL (NEGATIVE) Urine Blood Negative (NEGATIVE) Urine Nitrite Negative (NEGATIVE) Urine Bilirubin Negative (NEGATIVE) Urine Urobilinogen Negative mg/dL (0.2-1.9) Urine Leukocyte Esterase Large (NEGATIVE) Urine RBC 4 /HPF (0-2/HPF) Urine WBC 114 /HPF (0-5/HPF) Urine WBC Clumps Mod /HPF Urine Squamous Epithelial Cells Many /LPF (</=FEW) Urine Transitional Epithelial Cells Many /LPF (NONE-FEW) Urine Bacteria Few /HPF (NONE-FEW) Urine Hyaline Casts Few /LPF (NONE-FEW) Urine Mucus None /HPF (NONE-FEW) EKG/Imaging EKG Interpretation 12 lead EKG: Rhythm: atrial fibrillation [place]: normal QRS: normal ST segments: minimal st depression v5- atrial fibrillation with regular rate Monitor Interpretation: Atrial Fibrillation ED Course/Re-evaluation ED Course 84 y/o female presents with sgs/sympotms of paroxysmal a fib. HR is generally controlled and she has taken her evening dilt prior to arrival. EKG is without acute changes. Will rpt electrolytes and ua to determine likelihood of uti, re assess. Pt's symptoms gradually improve. Her ua is c/w uti; will start on keflex and culture urine; this may be etiology of symptoms. Understands SRP's. Decision to Disposition Date: Jun 09, 2019 Decision to Disposition Time: 19:50 Depart Departure Latest Vital Signs Vital Signs Date Time Temp Pulse Resp B/P (MAP) Pulse Ox O2 Delivery O2 Flow Rate FiO2 06/09/19 20:41 ??? 06/09/19 20:36 21 97 06/09/19 20:35 134/82 (99) 06/09/19 18:17 98.3 Nasal Cannula 06/09/19 18:14 3.0 Impression: Primary Impression: Afib Additional Impression: Urinary tract infection Condition: Improved Disposition: HOME OR SELF-CARE Referrals: CATARINO ROSADO DO (PCP) 2 Days New Scripts Cephalexin Monohydrate (CEPHALEXIN) 500 Mg Cap 500 MG PO Q12H for 7 Days, #14 CAP Prov: JOHNNY BALDWIN MD 06/09/19 Patient Instructions: A-fib (Atrial Fibrillation) (ED), Urinary Tract Infection in Women (ED) Additional Instructions: As we discussed; You have a urinary infection; I have transmitted your prescription to [facility]. Take the medication twice daily as directed for 7 days. As you have had multiple recent urinary infections, have your primary doctor consider referall to urology if she feels this is necessary. Your magnesium level was low. We replaced this. Have your primary doctor recheck in the next week to see if you should be on oral supplementation. Please return immediately if you feel worse or for any concerns. Problem Qualifiers Primary Impression: Afib Atrial fibrillation type: paroxysmal Qualified Codes: I48.0 - Paroxysmal atrial fibrillation Additional Impression: Urinary tract infection Urinary tract infection type: acute cystitis Hematuria presence: without hematuria Qualified Codes: N30.00 - Acute cystitis without hematuria JOHNNY BALDWIN MD Jun 09, 2019 18:42
[2019-06-09 18:58] LABS: PLATELET COUNT, AUTOMATED 608 K/uL (150-450)
[2019-06-09] MEDS ORDERED: MAGNESIUM SUL* 2 GM/50 ML IVPB 50 ML IVPB ONE (19:40)
[2019-06-09] MEDS ORDERED: CEPHALEXIN MONO 500 MG CAP PO ONE (19:40)
[2019-06-09] MEDS ORDERED: CEPH500C24 PO (19:50)
[2019-06-09] MEDS ORDERED: NS(*) 0.9% 1000 ML BAG 1,000 ML IV ONE (19:50)
[2019-06-09 20:35] VITALS: BP 134/82
--- NOTE | 2019-06-10 10:06 | EKG ---
FACILITY: [facility] - [place] PATIENT NAME: AURORA MORGAN : [id number] MR: [id number] V: [id number] EXAM DATE: ORDERING PHYSICIAN: JOHN LOZADA TECHNOLOGIST: DANIELA Test Reason : POSSIBLE A FIB Blood Pressure : / mmHG Vent. Rate : 086 BPM Atrial Rate : 288 BPM P-R Int : 000 ms QRS Dur : 082 ms QT Int : 374 ms P-R-T Axes : 000 079 082 degrees QTc Int : 447 ms Atrial fibrillation Nonspecific ST abnormality Abnormal ECG Confirmed by ROMEO WILDER ([id number]) on 06/10/2019 1:24:14 PM Referred By: CATARINO ROSADO Confirmed By:ROMEO WILDER
== END 2019-06-09 20:45 | disposition home or self-care (01) ==
LOC: ER 18:17
DX: I48.0 Paroxysmal atrial fibrillation (principal); N30.00 Acute cystitis without hematuria
CPT/HCPCS: 81001; 83735; 85025; 93005; 96365; 99284; A9270; J3475; J7030; 82310; 82374; 82435; 82565; 82947; 84132; 84295; 84520

== ENCOUNTER 2019-06-12 06:59 | Emergency (ER) | payer MEDICARE, OTHER ==
[2019-01-27 09:06] VITALS: Wt 60.8 kg
[~2019-06-12 06:59] MED LIST changes: +CEPH500C24 PO
[2019-06-12] MEDS ORDERED: ASPIRIN 81 MG CHEW PO ONE (07:10)
--- NOTE | 2019-06-12 07:17 | ER Report ---
History and Physical Time Seen By MD: 07:12 Hx. of Stated Complaint: PATIENT STATES SHE WOKE UP WITH CHEST PAIN AT 0300. STATES IT IS FEELING BETTER NOW. ALSO IS DIZZY, LIGHT HEADED AND SHORT OF BREATH HPI/ROS CHIEF COMPLAINT: Chest pain and dizziness HISTORY OF PRESENT ILLNESS: The patient is an 84-year-old female with a history of paroxysmal atrial fibrillation and is on Xarelto daily for anticoagulation, she was recently seen on June 09 for an episode of A. fib with rapid ventricular response. She was also diagnosed with UTI and placed on Macrobid prior to that he only took one dose because it only upset her stomach and her symptoms of UTI had at that time gone away. Patient states that around 3 AM she woke with pain into her left chest that seemed to be pleuritic in nature, patient was at rest when symptoms began she states that the pain lasted until approximately 5 AM and then resolved. But because he has a prior history with her atrial fibrillation she came to the emergency department for evaluation. Patient did take her anticoagulant this morning. She denies any fevers or chills or other infectious type symptoms. She denies any abdominal pain REVIEW OF SYSTEMS: Constitutional: No fever, no chills. Eyes: No discharge. ENT: No sore throat. Cardiovascular: Chest pain Respiratory: No cough, no shortness of breath. Gastrointestinal: No abdominal pain, no vomiting. Genitourinary: No hematuria. Musculoskeletal: No back pain. Skin: No rashes. Neurological: No headache. Allergies: Coded Allergies: Egg Derived (Verified Allergy, Intermediate, HIVES, 06/12/19) Tetanus Vaccines and Toxoid (Verified Allergy, Intermediate, ANAPHYLAXIS, 06/12/19) Influenza Virus Vaccines (Verified Allergy, Unknown, 06/12/19) Home Meds Active Scripts Cephalexin Monohydrate (CEPHALEXIN) 500 Mg Cap, 500 MG PO Q12H for 7 Days, #14 CAP Prov:JOHNNY BALDWIN MD 06/09/19 Nitrofurantoin Monohyd/M-Cryst (MACROBID 100 MG CAPSULE) 100 Mg Capsule, 100 MG PO BID for 7 Days, #14 CAPSULE 0 Refills Prov:LORETTA GUTIERREZ COMPRESS[employer] SERVICE TECHNICIAN-BC 05/14/19 Rivaroxaban (XARELTO 10 MG TAB (OR EQUIV)) 10 Mg Tablet, 15 MG PO QPM for 30 Days, #45 TAB Prov:SHANE ALVAREZ DO 01/28/19 Metoprolol Succinate (METOPROLOL SUCCINATE) 25 Mg Tab.er.24h, 25 MG PO QDAY for 30 Days, #30 TAB.SR.24H Prov:SHANE ALVAREZ DO 01/28/19 Diltiazem Hcl (DILTIAZEM 24HR CD) 120 Mg Cap.er.24h, 240 MG PO QDAY for 30 Days, #60 CAP.SR.24H Prov:SHANE ALVAREZ DO 01/28/19 Pantoprazole Sodium (PANTOPRAZOLE SODIUM) 40 Mg Tablet.dr, 1 TAB PO PRN PRN for heartburn, #90 TAB.SR 4 Refills Prov:SAVANNAH GOOD MD 01/17/17 Reported Medications Hydrochlorothiazide (HYDROCHLOROTHIAZIDE) 12.5 Mg Tablet, QDAYA 06/09/19 Lisinopril (LISINOPRIL) 5 Mg Tablet, 5 MG PO QDAY, TAB 03/24/19 Sodium Chloride (CAROLINE-128) 15 Ml Drops, 1 GTT OP BID 01/30/16 Vit C/E/Zn/Coppr/Lutein/Zeaxan (Preservision Areds 2 Softgel) 1 Each Capsule, 2 CAP PO QDAY 01/30/16 Glucosa Stiles 2KCL/Chondroitin Stiles (GLUCOSAMINE & CHONDROITIN CAP) 1 Each Capsule, 1 CAP PO BID 01/30/16 Cholecalciferol (Vitamin D3) (VITAMIN D) 2,000 Unit Tablet, 1 CAP PO QDAY 11/11/14 Past Medical/Surgical History Past medical history for paroxysmal atrial fibrillation, gastroesophageal reflux disease, hypertension Hx Smoking: Yes (LONG TIME [id number] 10-12 YEARS AGO) Smoking Status: Former Smoker Exposure to Second Hand Smoke?: Yes Hx Substance Use Disorder: No Hx Alcohol Use: No Constitutional Vital Sign - Last 24 Hours 06/12/19 06/12/19 06/12/19 06/12/19 07:02 07:05 07:08 07:30 Temp 97.6 Pulse 83 72 Resp 20 12 B/P (MAP) 146/71 (96) 146/71 Pulse Ox 91 98 O2 Delivery Nasal Cannula O2 Flow Rate 3.0 06/12/19 06/12/19 06/12/19 06/12/19 08:00 08:30 09:00 09:30 Pulse 78 86 68 74 Resp 12 11 14 12 Pulse Ox 97 97 96 96 Physical Exam General Appearance: The patient is alert, has no immediate need for airway protection and no signs of toxicity. Eyes: Pupils equal and round no pallor or injection. ENT, Mouth: Mucous membranes are moist. Respiratory: There are no retractions, lungs are clear to auscultation. Cardiovascular: Irregularly irregular rhythm that is rate controlled with a ventricular rate of approximately 70 bpm Gastrointestinal: Abdomen is soft and non tender, no masses, bowel sounds normal. Neurological: Awake and alert Skin: Warm and dry, no rashes. Musculoskeletal: Neck is supple non tender. Extremities are nontender, nonswollen and have full range of motion. Medical Decision Making Data Points Result Diagram: 06/12/19 0707 06/12/19 0707 Laboratory Hematology Test 06/12/19 07:07 White Blood Count 10.9 k/uL (4.5-11.0) Red Blood Count 4.22 M/uL (4.17-5.56) Hemoglobin 12.8 g/dL (12.0-16.0) Hematocrit 38.5 % (34.0-47.0) Mean Corpuscular Volume 91.3 fL (80.0-96.0) Mean Corpuscular Hemoglobin 30.3 pg (26.0-33.0) Mean Corpuscular Hemoglobin Concent 33.2 g/dL (32.0-36.0) Red Cell Distribution Width 14.7 % (11.5-14.5) H Platelet Count 544 K/uL (150-450) H Mean Platelet Volume 8.0 fL (7.2-11.1) Neutrophils (%) (Auto) 68.1 % (39.4-72.5) Lymphocytes (%) (Auto) 17.3 % (17.6-49.6) L Monocytes (%) (Auto) 9.8 % (4.1-12.4) Eosinophils (%) (Auto) 3.5 % (0.4-6.7) Basophils (%) (Auto) 1.3 % (0.3-1.4) Nucleated RBC Relative Count (auto) 0.0 /100WBC Neutrophils # (Auto) 7.4 K/uL (2.0-7.4) Lymphocytes # (Auto) 1.9 K/uL (1.3-3.6) Monocytes # (Auto) 1.1 K/uL (0.3-1.0) H Eosinophils # (Auto) 0.4 K/uL (0.0-0.5) Basophils # (Auto) 0.1 K/uL (0.0-0.1) Nucleated RBC Absolute Count (auto) 0.00 K/uL Peripheral Blood Smear Yes Y/N Chemistry Test 06/12/19 07:07 06/12/19 09:19 Sodium Level 132 mmol/L (137-145) Potassium Level 3.7 mmol/L (3.5-5.0) Chloride Level 96 mmol/L (98-107) Carbon Dioxide Level 28 mmol/L (22-31) Blood Urea Nitrogen 16 mg/dl (7-18) Creatinine 1.00 mg/dl (0.52-1.04) Glomerular Filtration Rate Calc 52.7 Random Glucose 119 mg/dl (75-110) Calcium Level 9.4 mg/dl (8.4-10.2) Total Bilirubin 0.3 mg/dl (0.2-1.3) Aspartate Amino Transf (AST/SGOT) 31 U/L (0-35) Alanine Aminotransferase (ALT/SGPT) 32 U/L (0-56) Alkaline Phosphatase 73 U/L (0-126) B-Type Natriuretic Peptide 252 pg/ml (0-100) Total Protein 6.9 g/dl (6.3-8.2) Albumin 3.9 g/dl (3.5-5.0) Troponin I < 0.012 ng/ml Coagulation Test 06/12/19 07:07 Prothrombin Time 20.7 seconds (12.0-14.4) Prothromb Time International Ratio 1.75 EKG/Imaging EKG Interpretation EKG shows atrial fibrillation that is rate controlled no concerning ST segment or T-wave abnormalities are noted Monitor Interpretation: Atrial Fibrillation Imaging FACILITY: [facility] PATIENT NAME: Arline Ramirez : 1935 MR: [id number] V: [id number] EXAM DATE: ORDERING PHYSICIAN: JOHNNY ROBERTSON TECHNOLOGIST: Location: [facility] - [place] Patient: Arline Ramirez : 1935 Visit/Account:[id number] Date of Sevice: 06/12/2019 CHEST PA LAT HISTORY: Chest pain. Shortness of breath. COMPARISON: June 09, 2019. FINDINGS: Cardiomediastinal contours: The heart is mildly enlarged. There is a moderate- sized retrocardiac hiatal hernia. Lungs and pleura: There is prominence the central pulmonary vessels suggesting chronic pulmonary hypertension. There is no infiltrate. Bones/soft tissues: There are no findings of a fracture. IMPRESSION: 1. Cardiomegaly. 2. Moderate-sized hiatal hernia. 3. Prominence the central pulmonary vessels suggesting chronic pulmonary hypertension. 4. No findings of an infiltrate. Report Dictated By: Nitish Tee MD at 06/12/2019 7:48 AM Report E-Signed By: Nitish Tee MD at 06/12/2019 7:55 AM [id number] ED Course/Re-evaluation ED Course 06/12/2019 7:53:50 am plan at this time will be to repeat a troponin at 2 hour window if negative will discharge home. Decision to Disposition Date: Jun 12, 2019 Decision to Disposition Time: 09:47 Depart Departure Latest Vital Signs Vital Signs Date Time Temp Pulse Resp B/P (MAP) Pulse Ox O2 Delivery O2 Flow Rate FiO2 06/12/19 09:30 74 12 96 06/12/19 07:08 3.0 06/12/19 07:05 97.6 146/71 Nasal Cannula Impression: Primary Impression: Atypical chest pain Condition: Improved Disposition: HOME OR SELF-CARE Referrals: CATARINO CALVIN DO (PCP) schedule a routine follow up apppointent with dr calvin Patient Instructions: Noncardiac Chest Pain (GEN) JOHNNY ROBERTSON MD Jun 12, 2019 07:17
[2019-06-12 07:26] LABS: PLATELET COUNT, AUTOMATED 544 K/uL (150-450)
--- NOTE | 2019-06-12 07:41 | EKG ---
FACILITY: [facility] [place] PATIENT NAME: AURORA MORGAN : [id number] MR: [id number] V: [id number] EXAM DATE: ORDERING PHYSICIAN: JOHNNY ROBERTSON TECHNOLOGIST: Test Reason : chest pain Blood Pressure : / mmHG Vent. Rate : 071 BPM Atrial Rate : 078 BPM P-R Int : 000 ms QRS Dur : 086 ms QT Int : 378 ms P-R-T Axes : 000 076 063 degrees QTc Int : 410 ms Atrial fibrillation Abnormal ECG When compared with ECG of 09-JUN-2019 18:05, Relatively unchanged Confirmed by ROXANN CAO ([id number]) on 06/12/2019 11:12:04 AM Referred By: Confirmed By:ROXANN CAO
--- NOTE | 2019-06-12 08:03 | RADIOLOGY IMAGING REPORT ---
FACILITY: [facility] PATIENT NAME: Arline Ramirez : 1935 MR: [id number] V: [id number] EXAM DATE: ORDERING PHYSICIAN: JOHNNY ROBERTSON TECHNOLOGIST: Location: [facility] Patient: Arline Ramirez : 1935 Visit/Account:[id number] Date of Sevice: 06/12/2019 CHEST PA LAT HISTORY: Chest pain. Shortness of breath. COMPARISON: June 09, 2019. FINDINGS: Cardiomediastinal contours: The heart is mildly enlarged. There is a moderate-sized retrocardiac hiat al hernia. Lungs and pleura: There is prominence the central pulmonary vessels suggesting chronic pulmonary hype rtension. There is no infiltrate. Bones/soft tissues: There are no findings of a fracture. IMPRESSION: 1. Cardiomegaly. 2. Moderate-sized hiatal hernia. 3. Prominence the central pulmonary vessels suggesting chronic pulmonary hypertension. 4. No findings of an infiltrate. Report Dictated By: Nitish Tee MD at 06/12/2019 7:48 AM Report E-Signed By: Nitish Tee MD at 06/12/2019 7:55 AM WSN:[id number]
[2019-06-12 08:04] LABS: INR 1.75
[2019-06-12 09:49] VITALS: BP 124/76
== END 2019-06-12 10:02 | disposition home or self-care (01) ==
LOC: ER 07:14
DX: R07.89 Other chest pain (principal)
CPT/HCPCS: 36415; 71046; 82040; 82247; 82310; 82374; 82435; 82565; 82947; 83880; 84075; 84132; 84155; 84295; 84450; 84460; 84484; 84520; 85025; 85610; 93005; 99284